=== PATIENT | female | born 1995 | race Caucasian/White ===

== ENCOUNTER 2018-01-11 08:00 | Outpatient (CLI) | payer BC | END 2018-01-11 08:01 | disposition home or self-care (01) | LOC: LAB.R 08:00 | PROVIDERS: ATTEND Obstetrics & Gynecology | DX: Z11.3 Encounter for screening for infections with a predominantly sexual mode of transmission (principal) | CPT/HCPCS: 87480; 87491; 87510; 87591; 87660 ==

== ENCOUNTER 2018-02-14 08:00 | Outpatient (CLI) | payer BC | END 2018-02-14 08:01 | disposition home or self-care (01) | LOC: LAB.R 08:00 | PROVIDERS: ATTEND Nurse Practitioner Obstetrics & Gynecology | DX: Z11.3 Encounter for screening for infections with a predominantly sexual mode of transmission (principal) | CPT/HCPCS: 87491; 87591 ==

== ENCOUNTER 2018-02-26 08:00 | Outpatient (CLI) | payer BC | END 2018-02-26 08:01 | disposition home or self-care (01) | LOC: LAB.R 08:00 | PROVIDERS: ATTEND Obstetrics & Gynecology | DX: N76.0 Acute vaginitis (principal) | CPT/HCPCS: 87480; 87491; 87510; 87591; 87660 ==

== ENCOUNTER 2018-03-05 18:47 | Outpatient (CLI) | payer BC, OTHER ==
--- NOTE | 2018-03-06 09:15 | Ultrasound Report ---
PELVIC ULTRASOUND: 03/05/2018 CLINICAL INDICATION: Lower abdominal pain. TECHNIQUE: Transabdominal pelvic ultrasound performed for global evaluation. Transvaginal pelvic ultrasound performed for detailed evaluation. Real-time scanning performed and static images obtained. FINDINGS: The uterus is anteverted, measuring 8.0 x 4.4 x 3.9 cm. The endometrium measures 5 mm. An IUD is noted in the endometrial canal. No focal myometrial lesion is appreciated. The ovaries are normal, with the right measuring 2.4 x 2.3 x 1.8 cm, and the left measuring 2.6 x 2.2 x 1.5 cm. No free fluid is present. IMPRESSION: IUD IN PLACE. NORMAL PELVIC ULTRASOUND. TD: 03/06/2018 08:33
== END 2018-03-05 18:48 | disposition home or self-care (01) ==
LOC: DI 18:47
PROVIDERS: ATTEND Obstetrics & Gynecology
DX: R10.30 Lower abdominal pain, unspecified (principal); Z97.5 Presence of (intrauterine) contraceptive device
CPT/HCPCS: 76830; 76856

== ENCOUNTER 2018-04-02 08:00 | Outpatient (CLI) | payer BC, OTHER | END 2018-04-02 23:59 | LOC: LAB.R 08:00 | PROVIDERS: ATTEND Obstetrics & Gynecology | DX: Z11.3 Encounter for screening for infections with a predominantly sexual mode of transmission (principal); N89.8 Other specified noninflammatory disorders of vagina | CPT/HCPCS: 87480; 87491; 87510; 87591; 87660 ==

== ENCOUNTER 2018-05-23 17:15 | Outpatient (CLI) | payer BC, OTHER | END 2018-05-23 23:59 | LOC: LAB.R 17:15 | PROVIDERS: ATTEND Obstetrics & Gynecology | DX: N89.8 Other specified noninflammatory disorders of vagina (principal) | CPT/HCPCS: 87480; 87510; 87660 ==

== ENCOUNTER 2018-06-11 08:00 | Outpatient (CLI) | payer BC, OTHER | END 2018-06-11 08:01 | disposition home or self-care (01) | LOC: LAB.R 08:00 | PROVIDERS: ATTEND Obstetrics & Gynecology | DX: N76.0 Acute vaginitis (principal) | CPT/HCPCS: 87480; 87510; 87660 ==

== ENCOUNTER 2018-07-17 08:00 | Outpatient (CLI) | payer BC, OTHER | END 2018-07-17 08:01 | disposition home or self-care (01) | LOC: LAB.R 08:00 | PROVIDERS: ATTEND Obstetrics & Gynecology | DX: N76.0 Acute vaginitis (principal) | CPT/HCPCS: 87480; 87510; 87660 ==

== ENCOUNTER 2019-02-04 11:53 | Emergency (ER) | payer BC, OTHER ==
[2019-02-04] MEDS ORDERED: HYDROcod/ACETAM 5/325 MG TABLET PO STA (12:38)
--- NOTE | 2019-02-04 12:41 | ED Physician Documentation ---
History of Present Illness - Stated complaint Stated Complaint: SIDE PX - Chief complaint Chief Complaint: Resp - History obtained from History obtained from: Patient, Friend - History of Present Illness Timing: Other (About a month and a half ago she was blowing her nose hard and felt a pop in the left lower lateral ribs. Ever since then she is had waxing and waning pain which at times is severe as it is now. She is not short of breath but it hurts to take a deep breath or cough or sneeze. There is no fever associated with it. She tried ibuprofen and meloxicam without relief. Flexeril offered her some relief.) Review of Systems Constitutional: reports: Reviewed and negative Cardiac: reports: Reviewed and negative Respiratory: reports: Reviewed and negative PD PAST MEDICAL HISTORY - Past Medical History Past Medical History: No - Past Surgical History Past Surgical History: No - Present Medications Home Medications: Ambulatory Orders Medication Instructions Recorded Confirmed Hydrocodone/Acetaminophen 1 - 2 each PO Q6H PRN #20 tablet 02/04/19 [Hydrocodon-Acetaminophen 5-325] - Allergies Allergies/Adverse Reactions: Allergies Allergy/AdvReac Type Severity Reaction Status Date / Time No Known Drug Allergies Allergy Verified 02/04/19 12:05 - Social History Does the pt smoke?: Yes Smoking Status: Current every day smoker Does the pt drink ETOH?: Yes Does the pt have substance abuse?: No - POLST Patient has POLST: No PD ED PE NORMAL - Vitals Vital signs reviewed: Yes - General General: Alert and oriented X 3, No acute distress - Neck Neck: Supple, no meningeal sign, No bony TTP - Cardiac Cardiac: RRR, No murmur, Other (Tender about rib 11 or 10 in the mid axillary line on the left) - Respiratory Respiratory: No respiratory distress, Clear bilaterally - Abdomen Abdomen: Non tender - Extremities Extremities: No edema, No calf tenderness / cord - Neuro Neuro: Alert and oriented X 3, Normal speech Results - Vitals Vitals: Vital Signs - 24 hr 02/04/19 12:01 Temperature 37.1 C Heart Rate 104 H Respiratory 18 Rate Blood Pressure 115/73 O2 Saturation 99 Oxygen O2 Source Room air Departure - Departure Disposition: 01 Home, Self Care Clinical Impression: Rib fracture Qualifiers: Encounter type: initial encounter Rib fracture type: single rib Fracture type: closed Laterality: right Qualified Code(s): S22.31XA - Fracture of one rib, right side, initial encounter for closed fracture Condition: Good Record reviewed to determine appropriate education?: Yes Instructions: ED Fx Rib Prescriptions: Hydrocodone/Acetaminophen [Hydrocodon-Acetaminophen 5-325] 1 - 2 each PO Q6H PRN #20 tablet PRN Reason: pain Comments: Do not drink or drive while taking narcotic pain medication. Note that many narcotic pain relievers also contain Tylenol/acetaminophen. Please ensure that your total dose of acetaminophen from all sources does not exceed 3 g (3000 mg) per day. You may get constipated while on this medication. Take a stool softener such as Colace twice a day while you are on it. Also add an nket-osc-dnxieiq laxative such as senna or MiraLAX on any day that you do not have a bowel movement. If you received a narcotic pain medication or sedative while in the emergency department, do not drive for the next 24 hours. Follow-up with your doctor in 1 week for recheck, return for new or worsening symptoms.
--- NOTE | 2019-02-04 13:51 | XRAY Report ---
Reason: rib pain left Procedure Date: 02/04/2019 Accession Number: [id number] / [id number] Procedure: XR - Ribs w/PA Chest LT CPT Code: FULL RESULT: EXAM: LEFT RIB RADIOGRAPHY EXAM DATE: 02/04/2019 01:32 PM. CLINICAL HISTORY: Rib pain left. COMPARISON: None. TECHNIQUE: 1 view of the chest and 2 views of the ribs. FINDINGS: Bones: Left seventh lateral rib fracture. Possible left 6 lateral rib fracture. Lungs: No focal opacities. No pneumothorax. No pleural effusions. Mediastinum: Heart and mediastinal contours are unremarkable. Other: None. IMPRESSION: Left seventh lateral rib fracture. Possible left 6 lateral rib fracture. RADIA
[2019-02-04 13:57] VITALS: BP 114/80
== END 2019-02-04 13:58 | disposition home or self-care (01) ==
LOC: ED 11:53
DX: S22.31XA Fracture of one rib, right side, initial encounter for closed fracture (principal); X50.1XXA Overexertion from prolonged static or awkward postures, initial encounter; F17.200 Nicotine dependence, unspecified, uncomplicated
CPT/HCPCS: 71101; 99283; A9270

== ENCOUNTER 2019-04-30 19:46 | Emergency (ER) | payer OTHER ==
[2019-04-30 20:21] LABS: BILIRUBIN,URINE NEGATIVE (NEGATIVE); GLUCOSE, URINE (UA) NEGATIVE (NEGATIVE); KETONES,URINE (UA) NEGATIVE (NEGATIVE); LEUKOCYTE ESTERASE, URINE NEGATIVE (NEGATIVE); NITRITE,URINE NEGATIVE (NEGATIVE); OCCULT BLOOD,URINE SMALL (NEGATIVE); PH,URINE 5.5 PH (5.0-7.5); PROTEIN,URINE NEGATIVE (NEGATIVE); UROBILINOGEN,URINE 0.2 (NORMAL) E.U./dL (NORMAL)
[2019-04-30 20:24] LABS: CLARITY,URINE CLEAR (CLEAR); HCG UR QUAL NEGATIVE
[2019-04-30 20:32] LABS: BASOPHILS # (AUTO) 0.1 10^3/uL (0.0-0.1); BASOPHILS % (AUTO) 1.1 %; EOSINOPHILS # (AUTO) 0.5 10^3/uL (0.0-0.7); EOSINOPHILS % (AUTO) 7.4 %; HGB - HEMOGLOBIN 13.1 g/dL (12.0-16.0); LYMPHOCYTES % (AUTO) 42.7 %; MEAN CORPUSCULAR HEMOGLOBIN 31.7 pg (27.0-31.0); MEAN CORPUSCULAR VOLUME 93.2 fL (81.0-99.0); MEAN PLATELET VOLUME 8.6 fL (7.9-10.8); MONOCYTES # (AUTO) 0.4 10^3/uL (0.0-1.0); MONOCYTES % (AUTO) 5.9 %; NEUTROPHILS % (AUTO) 42.5 %; PLT - PLATELET COUNT 317 10^3/uL (130-450); RED BLOOD COUNT 4.13 10^6/uL (4.20-5.40); RED CELL DISTRIBUTION WIDTH 11.8 % (12.0-15.0); WHITE BLOOD COUNT 7.1 x10^3/uL (4.8-10.8)
[2019-04-30 20:39] LABS: BACTERIA,URINE Few /HPF (None Seen); SQUAMOUS EPITHELIAL CELL,UR FEW Squamous (<= Few)
[2019-04-30 20:46] LABS: ALBUMIN/GLOBULIN RATIO 1.3 (1.0-2.2); BILIRUBIN,TOTAL 0.3 mg/dL (0.2-1.0); CALCIUM 8.8 mg/dL (8.5-10.3); CREATININE 0.6 mg/dL (0.4-1.0); TOTAL PROTEIN 7.1 g/dL (6.7-8.2)
--- NOTE | 2019-04-30 20:52 | ED Physician Documentation ---
PD HPI FEMALE - Stated complaint Stated Complaint: FEMALE /BLEED/POSS PREG/VOM - Chief complaint Chief Complaint: Abd Pain - History obtained from History obtained from: Patient - History of Present Illness Timing - onset: How many weeks ago (1) Timing - duration: Weeks (1) Timing - details: Gradual onset Pain level max: 8 Pain level max: 6 Associated symptoms: Abdominal pain, Pelvic pain Contributing factors: control, Oral contraceptive. No: , Exposed to STD Similar symptoms before: Has not had sx before Recently seen: Not recently seen - Additional information Additional information: states has been taking her control pills continuously for several months. no placebo weeks. Patient is having vaginal bleeding as well as severe cramping. Review of Systems Ten Systems: 10 systems reviewed and negative Constitutional: denies: Fever, Chills Nose: denies: Rhinorrhea / runny nose, Congestion Throat: denies: Sore throat Cardiac: denies: Chest pain / pressure Respiratory: denies: Cough GI: denies: Vomiting, Diarrhea, Hematemesis, Bloody / black stool : denies: Dysuria, Frequency, Hesitancy, Now EGA Skin: denies: Rash Musculoskeletal: denies: Neck pain, Back pain Neurologic: denies: Headache PD PAST MEDICAL HISTORY - Past Medical History Past Medical History: No - Past Surgical History Past Surgical History: No - Present Medications Home Medications: Ambulatory Orders Medication Instructions Recorded Confirmed Oxycodone HCl/Acetaminophen 1 - 2 each PO Q6H PRN #14 tablet 04/30/19 [Percocet 5-325 mg Tablet] - Allergies Allergies/Adverse Reactions: Allergies Allergy/AdvReac Type Severity Reaction Status Date / Time No Known Drug Allergies Allergy Verified 04/30/19 20:04 - Social History Does the pt smoke?: Yes Smoking Status: Current every day smoker Does the pt drink ETOH?: Yes Does the pt have substance abuse?: No - POLST Patient has POLST: No PD ED PE NORMAL - Vitals Vital signs reviewed: Yes - General General: Alert and oriented X 3, No acute distress, Well developed/nourished - HEENT HEENT: PERRL, Moist mucous membranes - Neck Neck: Supple, no meningeal sign - Cardiac Cardiac: RRR, Strong equal pulses - Respiratory Respiratory: No respiratory distress, Clear bilaterally - Abdomen Abdomen: Soft, Non distended, Other (Tender to palpation suprapubic without peritoneal signs) - Female Female : Other (Normal pelvic exam other than a small amount of dark blood from the cervical os.) - Back Back: No CVA TTP, No spinal TTP - Derm Derm: Warm and dry - Extremities Extremities: No edema, No calf tenderness / cord - Neuro Neuro: Alert and oriented X 3, dropper tank storage 2-12 intact, No motor deficit, No sensory deficit, Normal speech - Psych Psych: Normal mood, Normal affect Results - Vitals Vitals: Vital Signs - 24 hr 04/30/19 04/30/19 04/30/19 19:56 20:04 21:50 Temperature 36.7 C 36.7 C 36.6 C Heart Rate 85 85 88 Respiratory 16 16 16 Rate Blood Pressure 120/87 H 120/87 H 120/71 O2 Saturation 99 99 99 Oxygen O2 Source Room air - Labs Labs: Microbiology 04/30/19 21:00 Wet Prep - Final Vaginal Laboratory Tests 04/30/19 04/30/19 04/30/19 20:12 20:12 20:25 WBC 7.1 RBC 4.13 L Hgb 13.1 Hct 38.5 MCV 93.2 MCH 31.7 H MCHC 34.0 RDW 11.8 L Plt Count 317 MPV 8.6 Neut # (Auto) 3.0 Lymph # (Auto) 3.0 [place] # (Auto) 0.4 Eos # (Auto) 0.5 Baso # (Auto) 0.1 Absolute Nucleated RBC 0.00 Nucleated RBC % 0.0 Sodium Potassium Chloride Carbon Dioxide Anion Gap BUN Creatinine Estimated GFR (MDRD) Glucose Calcium Total Bilirubin AST ALT Alkaline Phosphatase Total Protein Albumin Globulin Albumin/Globulin Ratio Lipase Urine Color YELLOW Urine Clarity CLEAR Urine pH 5.5 Ur Specific [place] 1.025 1.025 Urine Protein NEGATIVE Urine Glucose (UA) NEGATIVE Urine Ketones NEGATIVE Urine Occult Blood SMALL H Urine Nitrite NEGATIVE Urine Bilirubin NEGATIVE Urine Urobilinogen 0.2 (NORMAL) Ur Leukocyte Esterase NEGATIVE Urine RBC 6-10 H Urine WBC 6-10 H Ur Squamous Epith Cells FEW Squamous Urine Bacteria Few Ur Microscopic Review INDICATED Urine Culture Comments INDICATED Urine HCG, Qual NEGATIVE 04/30/19 20:25 WBC RBC Hgb Hct MCV MCH MCHC RDW Plt Count MPV Neut # (Auto) Lymph # (Auto) [place] # (Auto) Eos # (Auto) Baso # (Auto) Absolute Nucleated RBC Nucleated RBC % Sodium 137 Potassium 3.7 Chloride 102 Carbon Dioxide 24 Anion Gap 11.0 BUN 13 Creatinine 0.6 Estimated GFR (MDRD) 122 Glucose 108 H Calcium 8.8 Total Bilirubin 0.3 AST 19 ALT 15 Alkaline Phosphatase 44 Total Protein 7.1 Albumin 4.0 Globulin 3.1 Albumin/Globulin Ratio 1.3 Lipase 48 Urine Color Urine Clarity Urine pH Ur Specific [place] Urine Protein Urine Glucose (UA) Urine Ketones Urine Occult Blood Urine Nitrite Urine Bilirubin Urine Urobilinogen Ur Leukocyte Esterase Urine RBC Urine WBC Ur Squamous Epith Cells Urine Bacteria Ur Microscopic Review Urine Culture Comments Urine HCG, Qual PD MEDICAL DECISION MAKING - ED course Complexity details: reviewed results, re-evaluated patient, considered differential, d/w patient ED course: 23-year-old female with dysmenorrhea. No acute laboratory findings. Had a normal pelvic ultrasound last year. No fibroids. Likely that this is related to her continuous control use, when the pills she is taking is not designed for such use. Will prescribe pain medication for home and follow-up with her doctor. Patient counseled regarding signs and symptoms for which I believe and urgent re-evaluation would be necessary. Patient with good understanding of and agreement to plan and is comfortable going home at this time This document was made in part using voice recognition software. While efforts are made to proofread this document, sound alike and grammatical errors may occur. Departure - Departure Disposition: 01 Home, Self Care Clinical Impression: Dysmenorrhea Condition: Good Instructions: ED Cramping Menstrual, ED Pelvic Pain UKO Follow-Up: your,doctor in 3 days [Other] Prescriptions: Oxycodone HCl/Acetaminophen [Percocet 5-325 mg Tablet] 1 - 2 each PO Q6H PRN #14 tablet PRN Reason: pain Comments: Follow up with your doctor for further care. return if you worsen. you should take the placebo Do not drink alcohol or drive while on narcotic pain medicine. Note that many narcotic pain relievers also contain tylenol/acetaminophen. Please ensure that your total dose of acetaminophen from all sources does not exceed 3 grams (3000mg) per day. You may constipated on this medication, take a stool softener such as "Colace" twice a day while you are on it. Also recommend a pijp-apr-hgesnua laxative such as senna or MiraLAX any day that you do not have a bowel movement. If you received narcotic pain medication in the emergency department, do not drive or operate machinery for the next 24 hours. Forms: Activity restrictions Discharge Date/Time: 04/30/19 22:09
[2019-04-30] MEDS ORDERED: oxyCODONE 5 MG TABLET PO STA (20:53)
[2019-04-30] MEDS ORDERED: HYDROmorphone 2 MG TABLET PO STA (21:36)
[2019-04-30 21:50] VITALS: BP 120/71
== END 2019-04-30 22:09 | disposition home or self-care (01) ==
LOC: ED 19:46
DX: N94.6 Dysmenorrhea, unspecified (principal); F17.200 Nicotine dependence, unspecified, uncomplicated
CPT/HCPCS: 36415; 80053; 81001; 81025; 83690; 85025; 87086; 87210; 99282; 99284; A9270; 81003

== ENCOUNTER 2019-05-02 17:45 | Emergency (ER) | payer OTHER ==
[2019-05-02 18:20] LABS: BILIRUBIN,URINE NEGATIVE (NEGATIVE); GLUCOSE, URINE (UA) NEGATIVE (NEGATIVE); KETONES,URINE (UA) NEGATIVE (NEGATIVE); LEUKOCYTE ESTERASE, URINE NEGATIVE (NEGATIVE); NITRITE,URINE NEGATIVE (NEGATIVE); OCCULT BLOOD,URINE TRACE-INTA (NEGATIVE); PROTEIN,URINE NEGATIVE (NEGATIVE); UROBILINOGEN,URINE 0.2 (NORMAL) E.U./dL (NORMAL)
[2019-05-02 18:22] LABS: CLARITY,URINE CLEAR (CLEAR); HCG UR QUAL NEGATIVE
[2019-05-02 18:58] LABS: BASOPHILS # (AUTO) 0.1 10^3/uL (0.0-0.1); BASOPHILS % (AUTO) 0.6 %; EOSINOPHILS # (AUTO) 0.5 10^3/uL (0.0-0.7); EOSINOPHILS % (AUTO) 5.5 %; HGB - HEMOGLOBIN 14.4 g/dL (12.0-16.0); LYMPHOCYTES # (AUTO) 2.9 10^3/uL (1.5-3.5); LYMPHOCYTES % (AUTO) 33.7 %; MEAN CORPUSCULAR HEMOGLOBIN 31.4 pg (27.0-31.0); MEAN CORPUSCULAR HGB CONC 33.1 g/dL (32.0-36.0); MEAN CORPUSCULAR VOLUME 94.8 fL (81.0-99.0); MEAN PLATELET VOLUME 8.7 fL (7.9-10.8); MONOCYTES # (AUTO) 0.4 10^3/uL (0.0-1.0); MONOCYTES % (AUTO) 4.4 %; NEUTROPHILS # (AUTO) 4.8 10^3/uL (1.5-6.6); NEUTROPHILS % (AUTO) 55.5 %; PLT - PLATELET COUNT 338 10^3/uL (130-450); RED BLOOD COUNT 4.59 10^6/uL (4.20-5.40); RED CELL DISTRIBUTION WIDTH 11.7 % (12.0-15.0); WHITE BLOOD COUNT 8.7 x10^3/uL (4.8-10.8)
[2019-05-02 19:11] LABS: ALBUMIN 4.2 g/dL (3.2-5.5); ALBUMIN/GLOBULIN RATIO 1.2 (1.0-2.2); BILIRUBIN,TOTAL 0.6 mg/dL (0.2-1.0); CALCIUM 9.5 mg/dL (8.5-10.3); CREATININE 0.7 mg/dL (0.4-1.0); TOTAL PROTEIN 7.7 g/dL (6.7-8.2)
[2019-05-02] MEDS ORDERED: HYDROmorphone 1 MG/ML CARPUJECT IVP STA ×3 (19:31→23:01)
[2019-05-02] MEDS ORDERED: IOVERSOL 320 100 ML VIAL IVP ONE ×2 (19:34→19:43)
--- NOTE | 2019-05-02 20:14 | CT Report ---
Reason: RLQ abd pain Procedure Date: 05/02/2019 Accession Number: [id number] / [id number] Procedure: CT - Abdomen/Pelvis W CPT Code: FULL RESULT: EXAM: CT ABDOMEN AND PELVIS EXAM DATE: 05/02/2019 07:42 PM. CLINICAL HISTORY: RLQ abd pain. COMPARISONS: None. TECHNIQUE: Routine helical CT imaging was performed through the abdomen and pelvis. IV contrast: OPTI 320 90ML. Enteric contrast: No. Reconstructions: Coronal and sagittal. In accordance with CT protocol optimization, one or more of the following dose reduction techniques were utilized for this exam: automated exposure control, adjustment of mA and/or KV based on patient size, or use of iterative reconstructive technique. FINDINGS: Lung Bases: Unremarkable. Liver: Normal. Gallbladder/Bile Ducts: Unremarkable. Spleen: Normal. Pancreas: Normal. Adrenal Glands: Normal. Kidneys: Normal. No hydronephrosis. No visualized stone. Peritoneal Cavity/Bowel: Limited evaluation without enteric contrast due to lack of intra-abdominal fat. The cecum extends into the pelvis. The appendix is not identified. No pericecal inflammation visualized. Trace free fluid. No abscess free air or adenopathy. No evidence of a bowel obstruction. Pelvic Organs: The bladder, uterus and adnexa are unremarkable. Vasculature: Unremarkable. Bones: Old left seventh rib fracture. Other: None. IMPRESSION: The appendix is not identified. No definite evidence of acute appendicitis. Trace free fluid. RADIA
--- NOTE | 2019-05-02 20:42 | ED Physician Documentation ---
PD HPI ABD PAIN - Stated complaint Stated Complaint: RLQ ABD PX/VOM - Chief complaint Chief Complaint: Abd Pain - History obtained from History obtained from: Patient - History of Present Illness Timing - onset: How many weeks ago (1) Timing - duration: Weeks (1) Timing - details: Gradual onset Pain level max: 8 Pain level now: 8 Quality: Aching, Pain Location: RLQ, Suprapubic Radiation: No: Chest, , Lower back, Left flank, Left shoulder, Other, Right flank, Right shoulder, Upper back Improved by: No: Eating, Laying still, Vomiting, BM, Position, Meds Worsened by: Moving, Palpation. No: Eating, Breathing, Position Associated symptoms: Nausea, Vomiting, Constipation. No: Fever, Diarrhea, Melena, Hematochezia, Dysuria, Hematuria, Chest pain, Dizzy Recently seen: Emergency Dept (2 days ago for same.) - Additional information Additional information: Pain has now moved to the right lower quadrant. Worse with movement and palpation. Review of Systems Constitutional: denies: Fever, Chills Throat: denies: Sore throat Cardiac: denies: Chest pain / pressure Respiratory: denies: Cough GI: reports: Abdominal Pain, Nausea, Vomiting. denies: Diarrhea : denies: Incontinent, Hematuria Skin: denies: Rash Musculoskeletal: denies: Neck pain PD PAST MEDICAL HISTORY - Past Medical History Past Medical History: No - Past Surgical History Past Surgical History: No - Present Medications Home Medications: Ambulatory Orders Medication Instructions Recorded Confirmed Oxycodone HCl/Acetaminophen 1 - 2 each PO Q6H PRN #14 tablet 04/30/19 05/02/19 [Percocet 5-325 mg Tablet] Ibuprofen [Motrin] 800 mg PO Q8H PRN #30 tablet 05/02/19 Ondansetron Odt [Zofran] 4 mg TL Q6H PRN #10 tablet 05/02/19 Oxycodone HCl/Acetaminophen 1 - 2 each PO Q6H PRN #14 tablet 05/02/19 [Percocet 5-325 mg Tablet] - Allergies Allergies/Adverse Reactions: Allergies Allergy/AdvReac Type Severity Reaction Status Date / Time No Known Drug Allergies Allergy Verified 05/02/19 18:00 - Social History Does the pt smoke?: Yes Smoking Status: Current every day smoker Does the pt drink ETOH?: Yes Does the pt have substance abuse?: No - Immunizations Immunizations are current?: Yes - POLST Patient has POLST: No PD ED PE NORMAL - Vitals Vital signs reviewed: Yes - General General: Alert and oriented X 3, No acute distress - HEENT HEENT: Moist mucous membranes - Neck Neck: Supple, no meningeal sign - Cardiac Cardiac: RRR, Strong equal pulses - Respiratory Respiratory: No respiratory distress, Clear bilaterally - Abdomen Abdomen: Soft, Other (Tender palpation right lower quadrant. Positive heeltap. Negative obturator. Negative psoas) - Back Back: No CVA TTP, No spinal TTP - Derm Derm: Warm and dry, No rash - Extremities Extremities: No edema - Neuro Neuro: Alert and oriented X 3 - Psych Psych: Normal mood, Normal affect Results - Vitals Vitals: Vital Signs - 24 hr 05/02/19 05/02/19 05/02/19 17:57 19:35 21:05 Temperature 36.4 C L Heart Rate 75 72 75 Respiratory 19 16 14 Rate Blood Pressure 109/59 L 118/93 H 106/65 O2 Saturation 100 100 100 05/02/19 23:15 Temperature Heart Rate 70 Respiratory 18 Rate Blood Pressure 97/77 O2 Saturation 97 Oxygen O2 Source Room air - Labs Labs: Laboratory Tests 05/02/19 05/02/19 05/02/19 18:14 18:52 18:52 WBC 8.7 RBC 4.59 Hgb 14.4 Hct 43.5 MCV 94.8 MCH 31.4 H MCHC 33.1 RDW 11.7 L Plt Count 338 MPV 8.7 Neut # (Auto) 4.8 Lymph # (Auto) 2.9 [place] # (Auto) 0.4 Eos # (Auto) 0.5 Baso # (Auto) 0.1 Absolute Nucleated RBC 0.00 Nucleated RBC % 0.0 Sodium 139 Potassium 3.8 Chloride 99 L Carbon Dioxide 25 Anion Gap 15.0 H BUN 14 Creatinine 0.7 Estimated GFR (MDRD) 102 Glucose 93 Calcium 9.5 Total Bilirubin 0.6 AST 18 ALT 15 Alkaline Phosphatase 44 Total Protein 7.7 Albumin 4.2 Globulin 3.5 Albumin/Globulin Ratio 1.2 Lipase 29 Urine Color YELLOW Urine Clarity CLEAR Urine pH 6.0 Ur Specific [place] 1.020 Urine Protein NEGATIVE Urine Glucose (UA) NEGATIVE Urine Ketones NEGATIVE Urine Occult Blood TRACE-INTA Urine Nitrite NEGATIVE Urine Bilirubin NEGATIVE Urine Urobilinogen 0.2 (NORMAL) Ur Leukocyte Esterase NEGATIVE Ur Microscopic Review NOT INDICATED Urine Culture Comments NOT INDICATED Urine HCG, Qual NEGATIVE - Rads (name of study) CT abdomen pelvis Radiology: Prelim report reviewed, EMP read contemporaneously, See rad report (The appendix is not identified. No definite evidence of acute appendicitis. Trace free fluid. ) PD MEDICAL DECISION MAKING - ED course Complexity details: reviewed results, re-evaluated patient, considered differential, d/w patient, d/w family ED course: 23-year-old female presents to the emergency department with right lower quadrant pain. The appendix is not identified on CT. There is no definite evidence of acute appendicitis. There is trace free fluid. Consulted Dr. Ordoñez, general surgery who does not feel that this is appendicitis. He came and evaluated the patient. Patient feels better after pain meds, IV fluids and Zofran. Tolerating p.o. without difficulty. Will prescribe pain medication for home and follow-up with her doctor for repeat evaluation. Patient counseled regarding signs and symptoms for which I believe and urgent re-evaluation would be necessary. Patient with good understanding of and agreement to plan and is comfortable going home at this time This document was made in part using voice recognition software. While efforts are made to proofread this document, sound alike and grammatical errors may occur. Departure - Departure Disposition: 01 Home, Self Care Clinical Impression: Abdominal pain Qualifiers: Abdominal location: unspecified location Qualified Code(s): R10.9 - Unspecified abdominal pain Condition: Good Instructions: ED Abdominal Pain Unkn Cause Follow-Up: your,doctor in 3 days [Other] Prescriptions: Ibuprofen [Motrin] 800 mg PO Q8H PRN #30 tablet PRN Reason: PAIN &/OR FEVER Ondansetron Odt [Zofran] 4 mg TL Q6H PRN #10 tablet PRN Reason: Nausea / Vomiting Oxycodone HCl/Acetaminophen [Percocet 5-325 mg Tablet] 1 - 2 each PO Q6H PRN #14 tablet PRN Reason: pain Comments: The cause of your symptoms is unclear tonight. This may be related to a ruptured ovarian cyst. Follow-up with your doctor for further evaluation and care. Return if you worsen. Do not drink alcohol or drive while on narcotic pain medicine. Note that many narcotic pain relievers also contain tylenol/acetaminophen. Please ensure that your total dose of acetaminophen from all sources does not exceed 3 grams (3000mg) per day. You may constipated on this medication, take a stool softener such as "Colace" twice a day while you are on it. Also recommend a wior-fwx-srjbtkt laxative such as senna or MiraLAX any day that you do not have a bowel movement. If you received narcotic pain medication in the emergency department, do not drive or operate machinery for the next 24 hours.
[2019-05-02] MEDS ORDERED: SODIUM CHLORIDE 0.9% 2,000 ML IV ONE (23:00)
[2019-05-02] MEDS ORDERED: KETOROLAC 30 MG/ML VIAL IVP STA (23:01)
[2019-05-03] MEDS ORDERED: HYDROmorphone 2 MG TABLET PO STA (00:01)
--- NOTE | 2019-05-03 00:52 | CONSULTATION NOTE ---
Referring Provider Name of Referring Provider:: Dr. Benigno Velasco Consult Date: 05/02/19 Chief Complaint - Chief Complaint Chief Complaint: Abdominal pain History of Present Illness - Admitted From Admitted From:: Not admitted-seen in ED. - History Obtained From Records Reviewed: Yes. History obtained from: Primarily the patient, some from the chart, some from Dr. Brewer. Exam Limitations: None. - History of Present Illness HPI Comment/Other: The patient is a very pleasant 23-year-old female who was evaluated in room 7 at [facility]'s emergency department at the request of Dr. Brewer. The patient states that she had the gradual onset of abdominal pain starting approximately 1 week ago. She was seen in the emergency department 2 days ago for pelvic bleeding. She states that she does take control pills most of the time but she skips and misses doses which has resulted in her having her period. She states that for the past 3 days she has had some nausea and vomiting with this abdominal pain to the point where she cannot tolerate any food. She has been able to drink small amounts of water but recently even this is been problematic. She denies hematemesis, melena, or hematochezia. The pain is described as sharp and crampy"much like a period." She denies any constipation or diarrhea. She denies any unexpected or unwarranted weight loss. 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 : reports: None HEENT: reports: None Psych: reports: None Musculoskeletal: reports: None Derm: reports: None MRSA Hx?: No Other Past Medical History: Dysmenorrhea - Past Surgical History General: denies: Cholecystectomy, Appendectomy - POLST Patient has POLST: No Meds/Allgy - Home Medications Home Medications: Ambulatory Orders Medication Instructions Recorded Confirmed Oxycodone HCl/Acetaminophen 1 - 2 each PO Q6H PRN #14 tablet 04/30/19 05/02/19 [Percocet 5-325 mg Tablet] Ibuprofen [Motrin] 800 mg PO Q8H PRN #30 tablet 05/02/19 Ondansetron Odt [Zofran] 4 mg TL Q6H PRN #10 tablet 05/02/19 Oxycodone HCl/Acetaminophen 1 - 2 each PO Q6H PRN #14 tablet 05/02/19 [Percocet 5-325 mg Tablet] - Allergies Allergies/Adverse Reactions: Allergies Allergy/AdvReac Type Severity Reaction Status Date / Time No Known Drug Allergies Allergy Verified 05/02/19 18:00 Review of Systems - Constitutional Constitutional: reports: Malaise. denies: Weakness, Weight loss - Eyes Eyes: denies: Pain - Ears, Nose & Throat Ears, Nose & Throat: denies: Ear pain - Cardiovascular Cariovascular: denies: Irregular heart rate, Palpitations, Chest pain - Respiratory Respiratory: denies: Cough, Sputum production, Wheezing - Gastrointestinal Gastrointestinal: reports: Abdominal pain, Nausea, Vomiting. denies: Abdominal distention, Rectal bleeding, Black stools, Bloody stools Exam - Vital Signs Reviewed Vital Signs: Yes Vital Signs: Vital Signs x48h Temp Pulse Resp BP Pulse Ox 05/02/19 23:15 70 18 97/77 97 05/02/19 21:05 75 14 106/65 100 05/02/19 19:35 72 16 118/93 H 100 05/02/19 17:57 36.4 C L 75 19 109/59 L 100 - Physical Exam General Appearance: positive: No acute distress Eyes Bilateral: positive: No lid inflammation, Conjunctivae nml, No scleral icterus ENT: positive: Dry mucous membranes Neck: positive: Trachea midline Respiratory: positive: Chest non-tender Cardiovascular: positive: Regular rate & rhythm Abdomen: positive: Nml bowel sounds, No distention, Tenderness (Primary located in the left lower quadrant and the patient states that this is different than before.). negative: Guarding, Rebound Skin: positive: Color nml Extremities: positive: Non-tender, Nml appearance Neurologic/Psychiatric: positive: Oriented x3, CN's nml (2-12), Motor nml, Sensation nml, Mood/affect nml Conclusion/Plan - Diagnosis Diagnosis: Abdominal pain likely secondary to ruptured ovarian cyst - Plan Plan: The patient's signs, symptoms, radiographic studies, labs all speak against appendicitis as a cause of her pain. Instead, with her taking her control pills in a somewhat regimented manner and a history of vaginal bleeding 2 days prior along with a small amount of free fluid this is more likely to be a ruptu red ovarian cyst. With regards to treatment recommend that we fully hydrate her with plenty of IV fluids, treat her pain, feed her as she is hungry and see how she does. I expect that she will improve and will be able to be discharged home with a follow-up with her primary care physician. I explained to her that this may take several weeks before she starts feeling normal. I asked her to contact us if she has any further surgical questions and or concerns and she stated that she would. 45 minutes of [id number] time spent with the patient, the majority of which was spent in discussion, coordination of care, and completion of the requisite paperwork Horacio disclaimer: This document was created in part using voice recognition technology. Because of the inherent limitations of the system ([employer]'s [employer] user manual states that the licensee understands that speech recognition is a statistical process and that recognition errors are inherent in the process), occasional esme e sounding word substitutions and grammatical errors do occur and persist despite proofreading. Please read this document for context. - Lab Results Fish Bones: 05/02/19 18:52 05/02/19 18:52 - Diagnostic Imaging Results Diagnostic Imaging Results: positive: Final report reviewed, Read independently
[2019-05-03 01:05] VITALS: BP 117/60
== END 2019-05-03 01:04 | disposition home or self-care (01) ==
LOC: ED 17:45
DX: R10.31 Right lower quadrant pain (principal); F17.200 Nicotine dependence, unspecified, uncomplicated
CPT/HCPCS: 36415; 74177; 80053; 81003; 81025; 83690; 85025; 96374; 96376; 99283; 99284; A9270; J1170; Q9967; 81001; 87086

== ENCOUNTER 2019-05-03 19:01 | Emergency (ER) | payer OTHER ==
[2019-05-03] MEDS ORDERED: SODIUM CHLORIDE 0.9% 1,000 ML IV STA (19:12)
[2019-05-03] MEDS ORDERED: HYDROmorphone 1 MG/ML CARPUJECT IVP STA ×2 (19:12→21:14)
[2019-05-03] MEDS ORDERED: ONDANSETRON 4 MG/2 ML VIAL IVP STA (19:12)
[2019-05-03 19:29] LABS: BILIRUBIN,URINE NEGATIVE (NEGATIVE); GLUCOSE, URINE (UA) NEGATIVE (NEGATIVE); KETONES,URINE (UA) NEGATIVE (NEGATIVE); LEUKOCYTE ESTERASE, URINE NEGATIVE (NEGATIVE); NITRITE,URINE NEGATIVE (NEGATIVE); OCCULT BLOOD,URINE SMALL (NEGATIVE); PROTEIN,URINE NEGATIVE (NEGATIVE); UROBILINOGEN,URINE 0.2 (NORMAL) E.U./dL (NORMAL)
[2019-05-03 19:31] LABS: BASOPHILS # (AUTO) 0.1 10^3/uL (0.0-0.1); EOSINOPHILS # (AUTO) 0.6 10^3/uL (0.0-0.7); EOSINOPHILS % (AUTO) 8.6 %; HGB - HEMOGLOBIN 14.1 g/dL (12.0-16.0); LYMPHOCYTES # (AUTO) 3.7 10^3/uL (1.5-3.5); MEAN CORPUSCULAR HEMOGLOBIN 30.9 pg (27.0-31.0); MEAN CORPUSCULAR HGB CONC 32.2 g/dL (32.0-36.0); MEAN CORPUSCULAR VOLUME 95.8 fL (81.0-99.0); MEAN PLATELET VOLUME 8.8 fL (7.9-10.8); MONOCYTES # (AUTO) 0.3 10^3/uL (0.0-1.0); MONOCYTES % (AUTO) 4.8 %; NEUTROPHILS # (AUTO) 2.2 10^3/uL (1.5-6.6); NEUTROPHILS % (AUTO) 32.3 %; PLT - PLATELET COUNT 320 10^3/uL (130-450); RED BLOOD COUNT 4.57 10^6/uL (4.20-5.40); RED CELL DISTRIBUTION WIDTH 11.8 % (12.0-15.0); WHITE BLOOD COUNT 6.9 x10^3/uL (4.8-10.8)
[2019-05-03 19:34] LABS: CLARITY,URINE HAZY (CLEAR)
[2019-05-03 19:42] LABS: ALBUMIN 4.1 g/dL (3.2-5.5); ALBUMIN/GLOBULIN RATIO 1.3 (1.0-2.2); BILIRUBIN,TOTAL 0.5 mg/dL (0.2-1.0); CALCIUM 9.4 mg/dL (8.5-10.3); CREATININE 0.6 mg/dL (0.4-1.0); TOTAL PROTEIN 7.3 g/dL (6.7-8.2)
[2019-05-03 20:20] LABS: SQUAMOUS EPITHELIAL CELL,UR NONE SEEN (<= Few)
[2019-05-03 20:21] LABS: BACTERIA,URINE None Seen /HPF (None Seen)
[2019-05-03] MEDS ORDERED: PROMETHAZINE INJ 25 MG in SODIUM CHLORIDE 0.9% 50 ML IV STA (21:14)
--- NOTE | 2019-05-03 21:16 | Ultrasound Report ---
Reason: pelvic pain, R Procedure Date: 05/03/2019 Accession Number: [id number] / [id number] Procedure: US - Pelvic w/Transvag+Doppler Comp CPT Code: FULL RESULT: EXAM: PELVIC ULTRASOUND WITH DOPPLERS CLINICAL HISTORY: Pelvic pain, R. COMPARISON: None. TECHNIQUE: Realtime transabdominal imaging performed to identify the uterus and adnexa and as an overview of other pelvic structures, followed by transvaginal imaging for better assessment of the endometrium and adnexa, with static image documentation. Color flow imaging and Doppler spectral analysis was performed to evaluate blood flow to the ovaries given pelvic pain and clinical concern for ovarian torsion. FINDINGS: Uterus: 8.8 x 3.8 x 5.5 cm, volume 99.7 cc. Anteverted position. Normal overall size and echotexture. Masses: None. Endometrium: 2.5 mm. Normal. Cervix: Small echogenic foci, possibly bubbles of air are calcifications. Otherwise unremarkable. Right Ovary: 3.9 x 1.6 x 2.6 cm, volume 8.4 cc. Multiple small follicles. Several small echogenic foci, probably calcifications. Mildly hypervascular. PSV 10.8 cm/sec. RI 0.60. Adnexa unremarkable.. Left Ovary: 3.5 x 2.1 x 2.9 cm, volume 10.8 cc. Numerous small follicles. Otherwise unremarkable. Arterial and venous blood flow are present. PSV 16.8 cm/sec. RI 0.60. Adnexa unremarkable.. Free Fluid: None. Other: None. IMPRESSION: 1. Mildly hypervascular right ovary with possible tiny calcifications; inflammatory disease is a differential consideration. 2. Arterial and venous blood flow are present to the ovaries bilaterally. 3. Tiny bubbles of air versus calcifications in the cervix. RADIA
[2019-05-03] MEDS ORDERED: AZITHROMYCIN 250 MG TABLET PO STA (21:31)
[2019-05-03] MEDS ORDERED: cefTRIAXone 1 GM VIAL IVP STA (21:31)
[2019-05-03 21:45] VITALS: BP 97/71
--- NOTE | 2019-05-03 21:59 | ED Physician Documentation ---
PD HPI ABD PAIN - Stated complaint Stated Complaint: ABD PX - Chief complaint Chief Complaint: Abd Pain - History obtained from History obtained from: Patient - History of Present Illness Timing - onset: How many days ago (several) Timing - duration: Days Timing - details: Gradual onset, Waxing and waning Pain level max: 10 Pain level now: 10 Quality: Aching, Pain Location: RLQ Radiation: No: Chest, , Lower back, Left flank, Left shoulder, Right flank, Right shoulder, Upper back Improved by: Laying still Worsened by: Moving, Palpation Associated symptoms: Nausea. No: Fever, Vomiting, Hematemesis, Diarrhea, Constipation Recently seen: Not recently seen Review of Systems Constitutional: denies: Fever, Chills GI: reports: Nausea. 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 : None HEENT: None Psych: None Musculoskeletal: None Derm: None - Past Surgical History Past Surgical History: No - Present Medications Home Medications: Ambulatory Orders Medication Instructions Recorded Confirmed Oxycodone HCl/Acetaminophen 1 - 2 each PO Q6H PRN #14 tablet 04/30/19 05/02/19 [Percocet 5-325 mg Tablet] Ibuprofen [Motrin] 800 mg PO Q8H PRN #30 tablet 05/02/19 Ondansetron Odt [Zofran] 4 mg TL Q6H PRN #10 tablet 05/02/19 Oxycodone HCl/Acetaminophen 1 - 2 each PO Q6H PRN #14 tablet 05/02/19 [Percocet 5-325 mg Tablet] HYDROmorphone [Dilaudid] 2 mg PO Q4H PRN #14 tablet 05/03/19 - Allergies Allergies/Adverse Reactions: Allergies Allergy/AdvReac Type Severity Reaction Status Date / Time No Known Drug Allergies Allergy Verified 05/03/19 19:08 - Social History Does the pt smoke?: Yes Smoking Status: Current every day smoker Does the pt drink ETOH?: Yes Does the pt have substance abuse?: No - Immunizations Immunizations are current?: Yes - POLST Patient has POLST: No PD ED PE NORMAL - Vitals Vital signs reviewed: Yes - General General: Alert and oriented X 3, No acute distress, Well developed/nourished - HEENT HEENT: PERRL, Moist mucous membranes - Neck Neck: Supple, no meningeal sign - Cardiac Cardiac: RRR, Strong equal pulses - Respiratory Respiratory: No respiratory distress, Clear bilaterally - Abdomen Abdomen: Soft, Non distended, Other (Tender palpation right lower quadrant. No peritoneal signs.) - Female Female : Other (Slight dark blood from the cervical os. Right adnexal te nderness but no mass. Otherwise normal exam) - Back Back: No CVA TTP, No spinal TTP - Derm Derm: Warm and dry, No rash - Extremities Extremities: No edema - Neuro Neuro: Alert and oriented X 3 - Psych Psych: Normal mood, Normal affect Results - Vitals Vitals: Vital Signs - 24 hr 05/03/19 05/03/19 19:05 21:44 Temperature 36.5 C 37.0 C Heart Rate 80 71 Respiratory 18 15 Rate Blood Pressure 96/55 L 97/71 O2 Saturation 100 98 Oxygen O2 Source Room air - Labs Labs: Microbiology 05/03/19 19:51 Wet Prep - Final Vaginal Laboratory Tests 05/03/19 05/03/19 05/03/19 19:15 19:15 19:15 WBC 6.9 RBC 4.57 Hgb 14.1 Hct 43.8 MCV 95.8 MCH 30.9 MCHC 32.2 RDW 11.8 L Plt Count 320 MPV 8.8 Neut # (Auto) 2.2 Lymph # (Auto) 3.7 H [place] # (Auto) 0.3 Eos # (Auto) 0.6 Baso # (Auto) 0.1 Absolute Nucleated RBC 0.00 Nucleated RBC % 0.0 ESR Sodium 141 Potassium 3.8 Chloride 103 Carbon Dioxide 26 Anion Gap 12.0 BUN 10 Creatinine 0.6 Estimated GFR (MDRD) 122 Glucose 87 Calcium 9.4 Total Bilirubin 0.5 AST 19 ALT 16 Alkaline Phosphatase 42 C-Reactive Protein Total Protein 7.3 Albumin 4.1 Globulin 3.2 Albumin/Globulin Ratio 1.3 Lipase 39 Urine Color YELLOW Urine Clarity HAZY Urine pH 7.0 Ur Specific [place] 1.010 Urine Protein NEGATIVE Urine Glucose (UA) NEGATIVE Urine Ketones NEGATIVE Urine Occult Blood SMALL H Urine Nitrite NEGATIVE Urine Bilirubin NEGATIVE Urine Urobilinogen 0.2 (NORMAL) Ur Leukocyte Esterase NEGATIVE Urine RBC 6-10 H Urine WBC 0-3 Ur Squamous Epith Cells NONE SEEN Urine Bacteria None Seen Ur Microscopic Review INDICATED Urine Culture Comments NOT INDICATED 05/03/19 05/03/19 19:15 19:15 WBC RBC Hgb Hct MCV MCH MCHC RDW Plt Count MPV Neut # (Auto) Lymph # (Auto) [place] # (Auto) Eos # (Auto) Baso # (Auto) Absolute Nucleated RBC Nucleated RBC % ESR 4 Sodium Potassium Chloride Carbon Dioxide Anion Gap BUN Creatinine Estimated GFR (MDRD) Glucose Calcium Total Bilirubin AST ALT Alkaline Phosphatase C-Reactive Protein < 1.0 Total Protein Albumin Globulin Albumin/Globulin Ratio Lipase Urine Color Urine Clarity Urine pH Ur Specific [place] Urine Protein Urine Glucose (UA) Urine Ketones Urine Occult Blood Urine Nitrite Urine Bilirubin Urine Urobilinogen Ur Leukocyte Esterase Urine RBC Urine WBC Ur Squamous Epith Cells Urine Bacteria Ur Microscopic Review Urine Culture Comments - Rads (name of study) pelvis US Radiology: Prelim report reviewed, EMP read contemporaneously, See rad report (Mildly hypervascular right ovary with possible tiny calcifications; inflammatory disease is a differential consideration. Arterial and venous blood flow are present to the ovaries bilaterally. Tiny bubbles of air versus calcifications in the cervix. ) PD MEDICAL DECISION MAKING - ED course Complexity details: reviewed results, re-evaluated patient, considered differential, d/w patient, d/w store consultant (Dr. Thomas) ED course: 23-year-old female with right lower quadrant/right pelvic pain of unclear etiology. Discussed ultrasound findings with Dr. Thomas, gynecology who recommends treating with Rocephin and azithromycin and follow-up in the clinic. Patient is well-appearing, nontoxic. Afebrile. Unclear etiology of her symptoms. Patient counseled regarding signs and symptoms for which I believe and urgent re-evaluation would be necessary. Patient with good understanding of and agreement to plan and is comfortable going home at this time This document was made in part using voice recognition software. While efforts are made to proofread this document, sound alike and grammatical errors may occur. Departure - Departure Disposition: 01 Home, Self Care Clinical Impression: Pelvic pain Condition: Good Instructions: ED Pelvic Pain [facility] Follow-Up: Jignesh Thomas MD [Provider Admit Priv/Credential] - Within 3 Days Prescriptions: HYDROmorphone [Dilaudid] 2 mg PO Q4H PRN #14 tablet PRN Reason: Abdominal Pain Comments: Follow-up with gynecology on Monday. Call the office for an appointment on Monday or Monday. Return if you worsen. The antibiotics will hopefully help with your symptoms. Forms: Activity restrictions Discharge Date/Time: 05/03/19 22:51
[2019-05-04 19:45] LABS: TRICHOMONAS VAGINALIS DNA NEGATIVE (NEGATIVE)
== END 2019-05-03 22:51 | disposition home or self-care (01) ==
LOC: ED 19:01
DX: R10.2 Pelvic and perineal pain (principal); F17.200 Nicotine dependence, unspecified, uncomplicated
CPT/HCPCS: 36415; 76830; 76856; 80053; 81001; 83690; 85025; 85651; 86140; 87210; 87491; 87591; 87661; 93975; 96361; 96365; 96375; 96376; 99283; 99284; A9270; J1170; J7040; 81003; 87086

== ENCOUNTER 2019-05-05 21:29 | Emergency (ER) | payer OTHER ==
--- NOTE | 2019-05-05 21:53 | ED Physician Documentation ---
PD HPI ABD PAIN - Stated complaint Stated Complaint: ABD PX - Chief complaint Chief Complaint: Abd Pain - History obtained from History obtained from: Patient - History of Present Illness Timing - onset: Other (Cannot specify but this is her fourth visit for the same complaint.) Timing - details: Gradual onset Pain level now: 9 (Rates it at a 9.5 and says it is causing her not to even be able to speak properly.) Quality: Cramping, Sharp Location: RLQ Radiation: Other (Into the right upper quadrant) Improved by: Meds (Dilaudid is the only thing that is helped the pain) Worsened by: Moving Associated symptoms: Nausea, Vomiting (Last emesis was 3 or 4:00 this afternoon), Constipation (Reports no bowel movement in a week), Loss of appetite (Has not been able to eat). No: Fever, Dysuria Similar symptoms before: Work up / diagnostics Recently seen: Emergency Dept - Additional information Additional information: Is a 23-year-old returns for her fourth visit in the past several days with complaints of "really, really" bad pain in her "stomach". She says the only time that she feels hungry is if she takes Dilaudid otherwise she cannot eat. In the course of the work-up over the past visits that she had an ultrasound of her ovaries that showed 1 of them was "swollen" she was discharged with antibiotics in hopes that that would help resolve her symptoms. She also had a CT scan in which they apparently did not fully see the appendix but a surgeon was consulted and he physically evaluated her 4 days ago did not feel that she had a surgical abdomen. Pain has always been suprapubic but now it has settled into the right lower quadrant and is radiating into the right upper quadrant. She rates it at a 9-1/2 out of 10 just sitting here talking to me says it is worse with movement and the only thing that helps alleviate it is Dilaudid. She denies any abdominal surgery. She is nauseous and trying to eat a bagel today without success. She is drinking. Denies fever. She reports no bowel movement in a week and has not tried a laxative. She is passing gas. 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 Her pain is been constant and waxing and waning. Review of Systems Constitutional: denies: Fever Respiratory: denies: Dyspnea, Cough GI: reports: Abdominal Pain, Nausea, Vomiting, Constipation. 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 : None HEENT: None Psych: None Musculoskeletal: None Derm: None - Past Surgical History Past Surgical History: No - Present Medications Home Medications: Ambulatory Orders Medication Instructions Recorded Confirmed Ibuprofen [Motrin] 800 mg PO Q8H PRN #30 tablet 05/02/19 05/05/19 Ondansetron Odt [Zofran] 4 mg TL Q6H PRN #10 tablet 05/02/19 05/05/19 HYDROmorphone [Dilaudid] 2 mg PO Q4H PRN #14 tablet 05/03/19 05/05/19 - Allergies Allergies/Adverse Reactions: Allergies Allergy/AdvReac Type Severity Reaction Status Date / Time No Known Drug Allergies Allergy Verified 05/03/19 19:08 - Social History Does the pt smoke?: Yes Smoking Status: Current every day smoker Does the pt drink ETOH?: Yes Does the pt have substance abuse?: No - Immunizations Immunizations are current?: Yes - POLST Patient has POLST: No PD ED PE NORMAL - Vitals Vital signs reviewed: Yes - General General: Alert and oriented X 3, No acute distress, Well developed/nourished - HEENT HEENT: Atraumatic, PERRL, Moist mucous membranes - Neck Neck: Thyroid normal - Cardiac Cardiac: RRR, No murmur - Respiratory Respiratory: No respiratory distress, Clear bilaterally - Abdomen Abdomen: Normal bowel sounds, Soft, Other (Abdomen is soft. 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 - Psych Psych: Normal affect Results - Vitals Vitals: Vital Signs - 24 hr 05/05/19 05/05/19 21:37 22:43 Temperature 36.5 C Heart Rate 80 86 Respiratory 16 16 Rate Blood Pressure 110/61 116/71 O2 Saturation 100 100 Oxygen O2 Source Room air - Labs Labs: Laboratory Tests 05/05/19 05/05/19 05/05/19 21:55 22:25 22:25 WBC 7.0 RBC 4.12 L Hgb 13.3 Hct 39.9 MCV 96.8 MCH 32.3 H MCHC 33.3 RDW 11.7 L Plt Count 281 MPV 8.7 Neut # (Auto) 2.7 Lymph # (Auto) 3.1 [place] # (Auto) 0.3 Eos # (Auto) 0.7 Baso # (Auto) 0.1 Absolute Nucleated RBC 0.00 Nucleated RBC % 0.0 Sodium 140 Potassium 3.6 Chloride 100 L Carbon Dioxide 27 Anion Gap 13.0 BUN 9 Creatinine 0.7 Estimated GFR (MDRD) 102 Glucose 92 Calcium 9.5 Total Bilirubin 0.4 AST 22 ALT 15 Alkaline Phosphatase 39 L Total Protein 6.9 Albumin 4.0 Globulin 2.9 Albumin/Globulin Ratio 1.4 Lipase 38 Urine Color YELLOW Urine Clarity CLEAR Urine pH 7.5 Ur Specific [place] 1.010 Urine Protein NEGATIVE Urine Glucose (UA) NEGATIVE Urine Ketones NEGATIVE Urine Occult Blood TRACE-INTA Urine Nitrite NEGATIVE Urine Bilirubin NEGATIVE Urine Urobilinogen 0.2 (NORMAL) Ur Leukocyte Esterase NEGATIVE Ur Microscopic Review NOT INDICATED Urine Culture Comments NOT INDICATED PD MEDICAL DECISION MAKING - ED course Complexity details: reviewed old records, reviewed results, re-evaluated patient, d/w patient ED course: Patient received Toradol 60 mg IM and when I went back to discuss her lab results she was sleeping so soundly that she did not even wake up and I pulled the curtain back. When she did wake up her eyes kept drifting off like she was sleeping. She said she just felt odd. Her pain was better down to at least a 7 out of 10. Her vital signs are all normal and her white blood cell count is normal. Liver enzymes and renal function as well as the lipase are normal. She is already been worked up with CT scan and ultrasound, she is been evaluated by a surgeon and referred to [facility]. She requested a prescription for pain medication. She been previously given Dilaudid and I told her initially upfront that I would not prescribe Dilaudid so she asked for something "like that" I declined any prescriptions for narcotics at this point. She will be discharged for outpatient follow-up with the [facility]. Departure - Departure Disposition: Home, Self Care Clinical Impression: Abdominal pain Qualifiers: Abdominal location: right lower quadrant Qualified Code(s): R10.31 - Right lower quadrant pain Condition: Good Instructions: ED Abdominal Pain Unkn Cause Follow-Up: Jignesh Thomas MD [Provider Admit Priv/Credential] - Comments: You should follow-up with the anesthesiologists' assistant as outlined at your previous discharge. At this time there is no indication that you have a surgical process in the abdomen. Nothing more than Tylenol or ibuprofen for the pain. You indicated you have Zofran at home if needed for nausea or vomiting.
[2019-05-05 21:59] LABS: BILIRUBIN,URINE NEGATIVE (NEGATIVE); GLUCOSE, URINE (UA) NEGATIVE (NEGATIVE); KETONES,URINE (UA) NEGATIVE (NEGATIVE); LEUKOCYTE ESTERASE, URINE NEGATIVE (NEGATIVE); NITRITE,URINE NEGATIVE (NEGATIVE); OCCULT BLOOD,URINE TRACE-INTA (NEGATIVE); PH,URINE 7.5 PH (5.0-7.5); PROTEIN,URINE NEGATIVE (NEGATIVE); UROBILINOGEN,URINE 0.2 (NORMAL) E.U./dL (NORMAL)
[2019-05-05 22:01] LABS: CLARITY,URINE CLEAR (CLEAR)
[2019-05-05] MEDS ORDERED: KETOROLAC 60 MG/2 ML VIAL IM STA (22:11)
[2019-05-05 22:32] LABS: BASOPHILS # (AUTO) 0.1 10^3/uL (0.0-0.1); EOSINOPHILS # (AUTO) 0.7 10^3/uL (0.0-0.7); EOSINOPHILS % (AUTO) 10.5 %; HGB - HEMOGLOBIN 13.3 g/dL (12.0-16.0); LYMPHOCYTES # (AUTO) 3.1 10^3/uL (1.5-3.5); LYMPHOCYTES % (AUTO) 44.7 %; MEAN CORPUSCULAR HEMOGLOBIN 32.3 pg (27.0-31.0); MEAN CORPUSCULAR HGB CONC 33.3 g/dL (32.0-36.0); MEAN CORPUSCULAR VOLUME 96.8 fL (81.0-99.0); MEAN PLATELET VOLUME 8.7 fL (7.9-10.8); MONOCYTES # (AUTO) 0.3 10^3/uL (0.0-1.0); MONOCYTES % (AUTO) 4.4 %; NEUTROPHILS # (AUTO) 2.7 10^3/uL (1.5-6.6); NEUTROPHILS % (AUTO) 39.3 %; PLT - PLATELET COUNT 281 10^3/uL (130-450); RED BLOOD COUNT 4.12 10^6/uL (4.20-5.40); RED CELL DISTRIBUTION WIDTH 11.7 % (12.0-15.0)
[2019-05-05 22:46] LABS: ALBUMIN/GLOBULIN RATIO 1.4 (1.0-2.2); BILIRUBIN,TOTAL 0.4 mg/dL (0.2-1.0); CALCIUM 9.5 mg/dL (8.5-10.3); CREATININE 0.7 mg/dL (0.4-1.0); TOTAL PROTEIN 6.9 g/dL (6.7-8.2)
[2019-05-06 00:01] VITALS: BP 118/70
== END 2019-05-05 23:58 | disposition home or self-care (01) ==
LOC: ED 21:29
DX: R10.31 Right lower quadrant pain (principal); R10.11 Right upper quadrant pain; F17.200 Nicotine dependence, unspecified, uncomplicated
CPT/HCPCS: 36415; 80053; 81001; 81003; 83690; 85025; 87086; 96372; 99283; 99284

== ENCOUNTER 2019-05-08 08:00 | Outpatient (CLI) | payer OTHER ==
[2019-05-09 08:47] LABS: TRICHOMONAS VAGINALIS DNA INDETERMINATE (NEGATIVE)
== END 2019-05-08 08:01 | disposition home or self-care (01) ==
LOC: LAB.R 08:00
PROVIDERS: ATTEND Obstetrics & Gynecology
DX: R10.2 Pelvic and perineal pain (principal)
CPT/HCPCS: 87491; 87591; 87661

== ENCOUNTER 2019-05-14 08:00 | Outpatient (CLI) | payer OTHER ==
[2019-05-14 22:04] LABS: TRICHOMONAS VAGINALIS DNA NEGATIVE (NEGATIVE)
== END 2019-05-14 23:59 | disposition home or self-care (01) ==
LOC: LAB.R 08:00
PROVIDERS: ATTEND Obstetrics & Gynecology
DX: R10.2 Pelvic and perineal pain (principal)
CPT/HCPCS: 87491; 87591; 87661

== ENCOUNTER 2019-05-14 15:10 | Outpatient (CLI) | payer OTHER ==
[2019-05-14 15:44] LABS: BASOPHILS # (AUTO) 0.1 10^3/uL (0.0-0.1); EOSINOPHILS # (AUTO) 0.4 10^3/uL (0.0-0.7); EOSINOPHILS % (AUTO) 8.2 %; HGB - HEMOGLOBIN 13.6 g/dL (12.0-16.0); LYMPHOCYTES % (AUTO) 40.4 %; MEAN CORPUSCULAR HEMOGLOBIN 31.7 pg (27.0-31.0); MEAN CORPUSCULAR HGB CONC 33.1 g/dL (32.0-36.0); MEAN CORPUSCULAR VOLUME 95.8 fL (81.0-99.0); MONOCYTES # (AUTO) 0.3 10^3/uL (0.0-1.0); MONOCYTES % (AUTO) 6.8 %; NEUTROPHILS # (AUTO) 2.2 10^3/uL (1.5-6.6); NEUTROPHILS % (AUTO) 43.4 %; PLT - PLATELET COUNT 279 10^3/uL (130-450); RED BLOOD COUNT 4.29 10^6/uL (4.20-5.40); RED CELL DISTRIBUTION WIDTH 11.7 % (12.0-15.0)
== END 2019-05-14 15:11 | disposition home or self-care (01) ==
LOC: LAB 15:10
PROVIDERS: ATTEND Obstetrics & Gynecology
DX: R10.2 Pelvic and perineal pain (principal)
CPT/HCPCS: 36415; 85025; 85651; 87491; 87591; 87661

== ENCOUNTER 2019-05-24 09:15 | Emergency (ER) | payer OTHER ==
--- NOTE | 2019-05-24 09:26 | ED Physician Documentation ---
PD HPI ABD PAIN - Stated complaint Stated Complaint: LOWER ABD PX - Chief complaint Chief Complaint: Abd Pain - History obtained from History obtained from: Patient - History of Present Illness Timing - onset: How many months ago (2) Timing - details: Still present Pain level max: 10 Pain level now: 8 Quality: Dull Location: RLQ Improved by: Meds (Tramadol) Associated symptoms: Nausea Recently seen: Emergency Dept (This is a 23-year-old female who denies past medical history who presents with continuous right lower quadrant abdominal pain. She states this began 2 months ago in the absence of known inciting for actors. She is been seen in the emergency department around 4 times for this, she had a work-up including a CT and ultrasound which been unrevealing. She has a laparoscopy scheduled 5 days of now, however she states that the tramadol which she is been prescribed is not been sufficient in controlling her pain. She does have some nausea associated associated with this pain, however she has not had any vomiting. She denies vaginal symptoms such as itching, burning, or abnormal bleeding. She is sexually active with one male partner is monogamous. She has had negative testing recently as well. She states that the overall quality and severity the pain is unchanged from recently, however is just not improving so she sought further care today.) Review of Systems Constitutional: denies: Fever Throat: denies: Oral lesions / sores Cardiac: denies: Chest pain / pressure Respiratory: denies: Cough GI: reports: Abdominal Pain, Nausea : denies: Dysuria Skin: denies: Rash Endocrine: denies: Polyuria Immunocompromised: denies: Immunocompromised PD PAST MEDICAL HISTORY - Past Medical History Cardiovascular: None Respiratory: None Neuro: None Endocrine/Autoimmune: None GI: None REFLEXOLOGIST: None : None HEENT: None Psych: None Musculoskeletal: None Derm: None - Past Surgical History Past Surgical History: No - Present Medications Home Medications: Ambulatory Orders Medication Instructions Recorded Confirmed Ibuprofen [Motrin] 800 mg PO Q8H PRN #30 tablet 05/02/19 05/24/19 Ondansetron Odt [Zofran] 4 mg TL Q6H PRN #10 tablet 05/02/19 05/24/19 Ondansetron Odt [Zofran] 4 mg TL Q6H PRN #10 tablet 05/24/19 - Allergies Allergies/Adverse Reactions: Allergies Allergy/AdvReac Type Severity Reaction Status Date / Time No Known Drug Allergies Allergy Verified 05/24/19 09:20 - Social History Does the pt smoke?: Yes Smoking Status: Current every day smoker Does the pt drink ETOH?: Yes Does the pt have substance abuse?: No - Immunizations Immunizations are current?: Yes - POLST Patient has POLST: No PD ED PE NORMAL - Vitals Vital signs reviewed: Yes - General General: Alert and oriented X 3 - HEENT HEENT: No: Atraumatic - Neck Neck: Supple, no meningeal sign - Cardiac Cardiac: RRR, No murmur - Respiratory Respiratory: Clear bilaterally - Abdomen Abdomen: Soft, Other (Nondistended. There is some distractible tenderness in the right lower quadrant, right upper quadrant and left upper quadrant are nontender to palpation. There is no guarding. Negative psoas sign.) - Derm Derm: Warm and dry - Extremities Extremities: No deformity - Neuro Neuro: Alert and oriented X 3 - Psych Psych: Normal mood, Normal affect Results - Vitals Vitals: Vital Signs - 24 hr 05/24/19 05/24/19 05/24/19 09:17 11:11 11:37 Temperature 36.8 C Heart Rate 126 H 88 68 Respiratory 14 19 20 Rate Blood Pressure 153/98 H 129/75 O2 Saturation 99 100 99 Oxygen O2 Source Room air - Labs Labs: Laboratory Tests 05/24/19 05/24/19 05/24/19 09:45 09:52 09:52 WBC 6.5 RBC 4.53 Hgb 14.4 Hct 43.6 MCV 96.2 MCH 31.8 H MCHC 33.0 RDW 12.1 Plt Count 283 MPV 8.5 Neut # (Auto) 3.6 Lymph # (Auto) 2.0 [place] # (Auto) 0.4 Eos # (Auto) 0.5 Baso # (Auto) 0.1 Absolute Nucleated RBC 0.00 Nucleated RBC % 0.0 Sodium 140 Potassium 3.7 Chloride 105 Carbon Dioxide 26 Anion Gap 9.0 BUN 15 Creatinine 0.6 Estimated GFR (MDRD) 122 Glucose 71 Calcium 9.7 Total Bilirubin 0.7 AST 18 ALT 14 Alkaline Phosphatase 38 L Total Protein 7.0 Albumin 4.2 Globulin 2.8 Albumin/Globulin Ratio 1.5 Lipase 29 Urine Color YELLOW Urine Clarity CLEAR Urine pH 7.5 Ur Specific [place] 1.020 Urine Protein NEGATIVE Urine Glucose (UA) NEGATIVE Urine Ketones NEGATIVE Urine Occult Blood NEGATIVE Urine Nitrite NEGATIVE Urine Bilirubin NEGATIVE Urine Urobilinogen 0.2 (NORMAL) Ur Leukocyte Esterase NEGATIVE Ur Microscopic Review NOT INDICATED Urine Culture Comments NOT INDICATED Urine HCG, Qual NEGATIVE PD MEDICAL DECISION MAKING - ED course Complexity details: considered differential (Appendicitis, cystitis, PID/STD, , miscarriage, ovarian torsion, chronic abdominal pain, appendicitis, gastroenteritis) ED course: This is a 23-year-old female who presents with worsening of chronic abdominal pain. On initial examination she is tachycardic in triage however her heart rate is normalized at the time of my examination. She does have some mild right lower quadrant tenderness, no suprapubic tenderness, and no vaginal symptoms. Given the chronicity of her symptoms, as well as a negative ultrasound and CT scan, appendicitis, and pelvic pathology such as torsion are highly unlikely. She has no risk factors for PID, is monogamous with one partner, and has no vaginal symptoms. She is received multiple work-ups for this complaint, and she in fact has a laparoscopy scheduled in several days for further evaluation of her discomfort. Labs are drawn, CBC is unremarkable with no leukocytosis, CMP likewise unremarkable, hCG negative, lipase normal. Urinalysis negative for infection. Patient was given Zofran for nausea, we tried a low dose of haloperidol for her abdominal pain. On repeat examination her abdomen is less tender, her pain is somewhat improved, she is feeling well enough to go home. I do not see signs of an appendicitis today based on her reassuring exam, vitals, labs. I discussed the results of her work-up, strict return precautions including vomiting, worsening abdominal pain, fever, or any other concerning symptoms. I recommended that she continue to follow-up closely with her OB provider as she has laparoscopy in several days from now. Patient agreed with this plan was discharged home in good condition. Departure - Departure Disposition: 01 Home, Self Care Clinical Impression: Abdominal pain Qualifiers: Abdominal location: right lower quadrant Qualified Code(s): R10.31 - Right lower quadrant pain Condition: Good Instructions: ED Abdominal Pain Unkn Cause Follow-Up: Jignesh Thomas MD [Provider Admit Priv/Credential] - Within 1 week Prescriptions: Ondansetron Odt [Zofran] 4 mg TL Q6H PRN #10 tablet PRN Reason: Nausea / Vomiting Comments: You were seen today for abdominal pain. Please follow-up with your OB provider as soon as possible, return to emergency department if you develop any new concerning symptoms such as persistent vomiting, worsening abdominal pain, or other concerning symptoms. Forms: Activity restrictions Discharge Date/Time: 05/24/19 11:37
[2019-05-24] MEDS ORDERED: KETOROLAC 15 MG/ML VIAL IVP STA (09:41)
[2019-05-24] MEDS ORDERED: ONDANSETRON 4 MG/2 ML VIAL IVP STA (09:41)
[2019-05-24 09:56] LABS: BASOPHILS # (AUTO) 0.1 10^3/uL (0.0-0.1); BASOPHILS % (AUTO) 1.2 %; EOSINOPHILS # (AUTO) 0.5 10^3/uL (0.0-0.7); EOSINOPHILS % (AUTO) 7.1 %; HGB - HEMOGLOBIN 14.4 g/dL (12.0-16.0); LYMPHOCYTES % (AUTO) 30.4 %; MEAN CORPUSCULAR HEMOGLOBIN 31.8 pg (27.0-31.0); MEAN CORPUSCULAR VOLUME 96.2 fL (81.0-99.0); MEAN PLATELET VOLUME 8.5 fL (7.9-10.8); MONOCYTES # (AUTO) 0.4 10^3/uL (0.0-1.0); NEUTROPHILS # (AUTO) 3.6 10^3/uL (1.5-6.6); NEUTROPHILS % (AUTO) 54.8 %; PLT - PLATELET COUNT 283 10^3/uL (130-450); RED BLOOD COUNT 4.53 10^6/uL (4.20-5.40); RED CELL DISTRIBUTION WIDTH 12.1 % (12.0-15.0); WHITE BLOOD COUNT 6.5 x10^3/uL (4.8-10.8)
[2019-05-24 09:59] LABS: BILIRUBIN,URINE NEGATIVE (NEGATIVE); GLUCOSE, URINE (UA) NEGATIVE (NEGATIVE); KETONES,URINE (UA) NEGATIVE (NEGATIVE); LEUKOCYTE ESTERASE, URINE NEGATIVE (NEGATIVE); NITRITE,URINE NEGATIVE (NEGATIVE); OCCULT BLOOD,URINE NEGATIVE (NEGATIVE); PH,URINE 7.5 PH (5.0-7.5); PROTEIN,URINE NEGATIVE (NEGATIVE); UROBILINOGEN,URINE 0.2 (NORMAL) E.U./dL (NORMAL)
[2019-05-24 10:01] LABS: CLARITY,URINE CLEAR (CLEAR); HCG UR QUAL NEGATIVE
[2019-05-24 10:08] LABS: ALBUMIN 4.2 g/dL (3.2-5.5); ALBUMIN/GLOBULIN RATIO 1.5 (1.0-2.2); BILIRUBIN,TOTAL 0.7 mg/dL (0.2-1.0); CALCIUM 9.7 mg/dL (8.5-10.3); CREATININE 0.6 mg/dL (0.4-1.0)
[2019-05-24] MEDS ORDERED: HALOPERIDOL 5 MG/ML VIAL IVP ONE (10:21)
[2019-05-24 11:39] VITALS: BP 129/75
== END 2019-05-24 11:37 | disposition home or self-care (01) ==
LOC: ED 09:15
DX: R10.31 Right lower quadrant pain (principal); F17.200 Nicotine dependence, unspecified, uncomplicated
CPT/HCPCS: 36415; 80053; 81001; 81003; 81025; 83690; 85025; 87086; 96374; 96375; 99284

== ENCOUNTER 2019-05-28 16:25 | Outpatient (CLI) | payer OTHER ==
[2019-05-28 16:59] LABS: HCG UR QUAL NEGATIVE
[2019-05-28 17:02] LABS: BASOPHILS # (AUTO) 0.1 10^3/uL (0.0-0.1); BASOPHILS % (AUTO) 1.1 %; EOSINOPHILS # (AUTO) 0.5 10^3/uL (0.0-0.7); EOSINOPHILS % (AUTO) 4.9 %; HGB - HEMOGLOBIN 12.4 g/dL (12.0-16.0); LYMPHOCYTES # (AUTO) 2.8 10^3/uL (1.5-3.5); LYMPHOCYTES % (AUTO) 28.9 %; MEAN CORPUSCULAR HEMOGLOBIN 32.5 pg (27.0-31.0); MEAN CORPUSCULAR HGB CONC 33.5 g/dL (32.0-36.0); MEAN CORPUSCULAR VOLUME 97.1 fL (81.0-99.0); MEAN PLATELET VOLUME 8.7 fL (7.9-10.8); MONOCYTES # (AUTO) 0.5 10^3/uL (0.0-1.0); MONOCYTES % (AUTO) 5.7 %; NEUTROPHILS # (AUTO) 5.6 10^3/uL (1.5-6.6); NEUTROPHILS % (AUTO) 58.8 %; PLT - PLATELET COUNT 259 10^3/uL (130-450); RED BLOOD COUNT 3.81 10^6/uL (4.20-5.40); RED CELL DISTRIBUTION WIDTH 11.8 % (12.0-15.0); WHITE BLOOD COUNT 9.5 x10^3/uL (4.8-10.8)
[2019-05-28 17:31] LABS: ALBUMIN 3.9 g/dL (3.2-5.5); ALBUMIN/GLOBULIN RATIO 1.5 (1.0-2.2); BILIRUBIN,TOTAL 0.3 mg/dL (0.2-1.0); CALCIUM 8.9 mg/dL (8.5-10.3); CREATININE 0.7 mg/dL (0.4-1.0); TOTAL PROTEIN 6.5 g/dL (6.7-8.2)
== END 2019-05-28 16:26 | disposition home or self-care (01) ==
LOC: LAB 16:25
PROVIDERS: ATTEND Obstetrics & Gynecology
DX: Z01.812 Encounter for preprocedural laboratory examination (principal); R10.2 Pelvic and perineal pain
CPT/HCPCS: 36415; 80053; 81025; 85025; 86850; 86900; 86901

== ENCOUNTER 2019-05-29 09:51 | Day surgery (SDC) | payer OTHER ==
[2019-05-29] MEDS ORDERED: MIDAZOLAM 2 MG/2 ML VIAL IVP ONE (09:52)
[2019-05-29] MEDS ORDERED: PROPOFOL 200 MG/20 ML VIAL IVP ONE (09:52)
[2019-05-29] MEDS ORDERED: fentaNYL 100 MCG/2 ML VIAL IVP ONE (09:52)
[2019-05-29] MEDS ORDERED: SUGAMMADEX 200 MG/2 ML VIAL IVP ONE ×2 (09:52→14:44)
[2019-05-29] MEDS ORDERED: ONDANSETRON 4 MG/2 ML VIAL IVP ONE (09:52)
[2019-05-29] MEDS ORDERED: ACETAMINOPHEN 1,000 MG/100 ML 100 ML IV ONE ×2 (09:52→12:46)
[2019-05-29] MEDS ORDERED: KETOROLAC 30 MG/ML VIAL IVP ONE (09:52)
[2019-05-29] MEDS ORDERED: ROCURONIUM 50 MG/5 ML VIAL IVP ONE (09:52)
[2019-05-29] MEDS ORDERED: DEXAMETHASONE 10 MG/ML VIAL IVP ONE (09:52)
[2019-05-29] MEDS ORDERED: LACTATED RINGERS 1,000 ML IV ONE ×2 (10:00→15:42)
[2019-05-29] MEDS ORDERED: CEFAZOLIN SODIUM IN 0.9 % NACL 2 GM/100 ML BAG IV ONE (10:18)
--- NOTE | 2019-05-29 10:26 | ANESTHESIA ---
Pre-Anesthesia VS, & Labs - Diagnosis R sided pelvic pain - Procedure diagnostic laparoscopy w/possible cystectomy/oopherectomy, cystoscopy Vital Signs: Temp Pulse Resp BP Pulse Ox 36.2 C L 92 12 113/93 H 100 05/29/19 10:02 05/29/19 10:02 05/29/19 10:02 05/29/19 10:02 05/29/19 10:02 Height 5 ft 1 in Weight (kg) 58.7 kg Body Mass Index 22.6 - NPO >8 hours - Is Patient ?: No (-HCG 05/28/19) - Lab Results Lab results reviewed: Yes Home Medications and Allergies Allergies/Adverse Reactions: Allergies Allergy/AdvReac Type Severity Reaction Status Date / Time No Known Drug Allergies Allergy Verified 05/24/19 09:20 Anes History & Medical History - Anesthetic History Anesthesia Complications: reports: No previous complications Family history of Anesthesia Complications: Denies Family history of Malignant Hyperthermia: Denies - Medical History Cardiovascular: reports: None Pulmonary: reports: None Gastrointestinal: reports: None Urinary: reports: None Neuro: reports: None Musculoskeletal: reports: None Endocrine/Autoimmune: reports: None Skin: reports: None Smoking Status: Current every day smoker Exam General: Alert, Oriented x3, Cooperative Dental: WNL Mouth Openin Fingerbreadth Neck Mobility: Normal Mallampati classification: II Thyromental Distance: 4-6 cm Respiratory: Lungs clear, Normal breath sounds Cardiovascular: Regular rate Neurological: Normal speech Mental/Cognitive Status: Alert/Oriented X3, Normal for patient Cognitive Status: Within normal limits Plan Anesthesia Type: General Consent for Procedure(s) Verified and Reviewed: Yes Code Status: Attempt Resuscitation ASA classification: 2-Mild systemic disease Is this case an emergency?: No
[2019-05-29] MEDS ORDERED: BUPIVACAINE 0.25%-EPI 1:200000 PF 30 ML VIAL ONE (11:10)
[2019-05-29] MEDS ORDERED: oxyCODONE 5 MG TABLET PO PRN (14:51)
[2019-05-29] MEDS ORDERED: ONDANSETRON 4 MG/2 ML VIAL IVP PRN (14:51)
[2019-05-29] MEDS ORDERED: LORazepam 2 MG/ML VIAL IVP PRN (14:51)
[2019-05-29] MEDS ORDERED: HYDROmorphone 0.5 MG/0.5 ML SYRINGE IVP PRN (14:51)
--- NOTE | 2019-05-29 14:57 | OPERATIVE REPORT ---
Operative Report - General Procedure Date: 05/29/19 Planned Procedure: Diagnostic Laproscopy with possible cystectomy or oopherectomy. Pre-Op Diagnosis: Left sided pelvic miki nsuspect adhesions Procedure Performed: Diagnostic laproscopy with Appendectomy and lysis of adhesions. Post Op Diagnosis: Pelvic adhesions, signs of prior appendicitis - Procedure Note Primary Surgeon: Jignesh Thomas MD Secondary Surgeon: cara Cedillo MD Anesthesia Provider: Lokesh Anders MD Anesthesia Technique: General ET tube Pathology: Appendex IV Fluids (mL): 700 Estimated Blood Loss (mL): 25 Urine Output (mL): 100 Indications: Pelvic pain Findings: Adhesions surrounding the Appendex. Complications: None - Other Other Information/Narrative: Dictastion # [id number]
[2019-05-29] MEDS ORDERED: ONDANSETRON 4 MG/2 ML VIAL ONE (15:07)
[2019-05-29] MEDS ORDERED: SCOPOLAMINE PATCH TOP ONE (15:08)
[2019-05-29] MEDS ORDERED: HYDROmorphone 0.5 MG/0.5 ML SYRINGE ONE (15:22)
[2019-05-29] MEDS ORDERED: PROMETHAZINE 25 MG/1 ML VIAL ONE (15:41)
--- NOTE | 2019-05-29 16:07 | OPERATIVE REPORT ---
DATE OF SERVICE: 05/29/2019 Physician: Jignesh Thomas MD PREOPERATIVE DIAGNOSIS: Right lower quadrant pain, suspect adhesions. POSTOPERATIVE DIAGNOSIS: Periappendiceal adhesions. PROCEDURE PERFORMED: Diagnostic laparoscopy with lysis of periappendiceal adhesions and appendectomy . SURGEON: Jignesh Thomas MD. TICKET WORKER: Yajaira Cedillo MD ANESTHESIA PROVIDER: Lokesh Gordon MD. ANESTHESIA: General via endotracheal tube. PATHOLOGY: Appendix. IV FLUIDS BLOOD LOSS: 700 mL ESTIMATED BLOOD LOSS: 25 mL URINE OUTPUT: 100 mL FINDINGS: Upon entering the abdominal cavity, she shows a cyst on the left ovary, which was compatib le with an ovulatory cyst and a corpus luteum. The uterus appeared somewhat irregular in contour. T he right fallopian tube appeared to be normal as well as the ovary. The cul-de-sac was free of adhes ions or scar tissue. Upon inspecting the appendix; however, there were numerous adhesions surroundin g it. The appendix was doubled back on itself as well as being adhered to the retrocecal area. The terminal ileum also had some adhesions to the left pelvic sidewall. The suspicion of previous chroni c appendicitis was entertained. General surgery was consulted during the procedure, at which time an appendectomy was performed. PROCEDURE IN DETAIL: Following adequate endotracheal anesthesia, patient was placed in dorsal lithot denia position in Landen stirrups. At this point, she was prepped and draped in the usual fashion. A p elvic examination was performed under anesthesia. Uterus was palpated roughly 8-9 cm anterior. The adnexa were not palpably enlarged. A timeout was performed, at which time, the concerns were address ed. A speculum was then placed in the vagina. The cervix was visualized, grasped with a single-toot h tenaculum. The cervix was dilated up to 6 mm and then sounded to 9 cm. A HUMI uterine manipulator was placed without difficulty. At this point, the crusher loader equipment operator's gloves were changed, and a stab wound was made in the subumbilical region with a #15 blade following local anesthesia of 0.25% Marcaine wit h epinephrine. A trocar and sheath were introduced under direct visualization without difficulty. A t this point, both left and right lower quadrant trocars were placed following skin incision and loca l anesthesia with 0.25% Marcaine. The left tube and ovary inspected and there was evidence of what a ppeared to be a corpus luteum. The uterus appeared to be free of adhesions in the cul-de-sac as well as the uterosacral ligaments and posterior broad ligaments. The right ovary also appeared to be iris e of disease. The gallbladder was inspected and noted to be normal. However, when trying to inspect the appendix, it was fairly adherent to the posterior fossa on the right hand side. There was also evidence of the terminal ileum being adhered to the left pelvic sidewall. Dr. Yajaira Cedillo was consulte d at this time. She presented, at which time we discussed the concerns about whether this was a lunchroom monitor tong appendicitis or prior appendicitis. She felt that removal of the appendix at this time would be appropriate. She performed this and her dictation will appear separately. Following end of appendec daniela, the pelvis and gutters were all irrigated with copious amounts of sterile saline. There is no evidence of any bleeding. The subumbilical port, which had been enlarged to 11 mm was then closed ut ilizing a Jamir-Cole with 2 sutures of #0 Vicryl on a UR-6 needle. There was evidence of good c losure visualized and documented laparoscopically. At this point, the lower quadrant trocars were re moved and the CO2 was allowed to escape. The incisions were all closed using 4-0 Monocryl subcuticul ar and then Dermabond was used to dress these. The instruments were then removed from the vagina. Rosalie meraz tolerated the procedure well and was taken to recover and taken to recovery in stable conditio n. Sponge and needle counts were correct. TD: 05/29/2019 15:08
[2019-05-29] MEDS ORDERED: oxyCODONE 5 MG TABLET ONE (16:16)
[2019-05-29 17:39] VITALS: BP 101/56
--- NOTE | 2019-06-05 17:47 | OPERATIVE REPORT ---
Operative Report - General Procedure Date: 05/29/19 Planned Procedure: None - Intraoperative Consultation Pre-Op Diagnosis: Pelvic Pain Procedure Performed: Appendectomy Post Op Diagnosis: Pelvic Pain - Procedure Note Primary Surgeon: Mamadou Secondary Surgeon: Martha Anesthesia Technique: General ET tube, Local Pathology: Appendix to pathology in formalin Estimated Blood Loss (mL): 5 Indications: Enlarged scarred and abnormal appearing appendix in the setting of right sided pelvic pain Findings: Abnormal appendix Complications: None apparent - Other Other Information/Narrative: I was called for intraoperative consultation by Dr. Thomas. He reported this young lady had been complaining of several weeks of pelvic and right sided pain. She was brought to the operating room for diagnostic laparoscopy and indicated procedures. Dr. Thomas noted the appendix was abnormal in appearance and consulted me for management of this portion of the procedure only. When I arrived, the patient was asleep on the operating table and all trocars were in place. I began by mobilizing the right colon toward the midline. This was done with a mixture of sharp and blunt dissection. There were numerous right lower quadrant adhesions noted in the region of the cecum and appendix. I was able to visualize the appendix in the retrocecal position. The appendix was carefully elevated. It was grossly abnormal in appearance with a short and thickened mesoappendix. A window was created in the mesoappendix at the junction of the cecum and appendix. A laparoscopic stapling device was used to liberate the appendix from its attachment to the cecum. This left the appendix attached by its mesentery. A vascular load of the stapler was then used to divide the mesoappendix. The appendix was placed in a bag and removed via the umbilical port. The camera was replaced and the operative site checked for hemostasis. It was irrigated with saline and aspirated free of all fluid and particulate matter. This concluded my involvement in this procedure. Dr. Thomas continued the operation which is dictated in a separate document.
== END 2019-05-29 09:52 | disposition home or self-care (01) ==
LOC: SDS 09:51
PROVIDERS: ATTEND Obstetrics & Gynecology
PROC: 0DNB4ZZ Release Ileum, Percutaneous Endoscopic Approach (ICD-10-PCS; 2019-05-29)
PROC: 0DTJ4ZZ Resection of Appendix, Percutaneous Endoscopic Approach (ICD-10-PCS; principal; 2019-05-29 11:00)
DX: K35.32 Acute appendicitis with perforation, localized peritonitis, and gangrene, without abscess (principal); K66.0 Peritoneal adhesions (postprocedural) (postinfection); F17.200 Nicotine dependence, unspecified, uncomplicated
CPT/HCPCS: 44970; A9270; J0131; J0690; J1170; J3490; J7120

== ENCOUNTER 2019-05-31 10:06 | Emergency (ER) | payer OTHER ==
[2019-05-31 10:15] VITALS: BP 102/83
--- NOTE | 2019-05-31 11:05 | ED Physician Documentation ---
History of Present Illness - Stated complaint Stated Complaint: POST OP PAIN - Chief complaint Chief Complaint: Abd Pain - History obtained from History obtained from: Patient - Additonal information Additional information: Patient is a 23-year-old female with recent appendectomy and adhesion release 2 days ago. There was a miscommunication related to her oxycodone prescription and dosing and therefore she has ran out of oxycodone medication. Patient has follow-up scheduled for next week and physician is unable to refill medication before that time. Patient reports persistent discomfort, but denies nausea, vomiting, urinary changes, stool changes, fever or complications with wounds. No other improving or worsening factors noted. Review of Systems Constitutional: denies: Fever GI: reports: Abdominal Pain. denies: Nausea, Vomiting, Constipation, Diarrhea : denies: Dysuria PD PAST MEDICAL HISTORY - Past Medical History Cardiovascular: None Respiratory: None Neuro: None Endocrine/Autoimmune: None GI: None SULFUR BURNER: None : None HEENT: None Psych: None Musculoskeletal: None Derm: None - Past Surgical History Past Surgical History: Yes General: Appendectomy - Present Medications Home Medications: Ambulatory Orders Medication Instructions Recorded Confirmed Ibuprofen [Motrin] 800 mg PO Q8H PRN #30 tablet 05/02/19 05/31/19 Hydrocodone/Acetaminophen 1 each PO Q6H PRN #15 tablet 05/31/19 [Hydrocodon-Acetaminophen 5-325] Oxycodone HCl/Acetaminophen 1 tab PO PRN PRN 05/31/19 05/31/19 [Oxycodone-Acetaminophen 10-325] - Allergies Allergies/Adverse Reactions: Allergies Allergy/AdvReac Type Severity Reaction Status Date / Time No Known Drug Allergies Allergy Verified 05/31/19 10:15 - Social History Does the pt smoke?: Yes Smoking Status: Current every day smoker Does the pt drink ETOH?: Yes Does the pt have substance abuse?: No - Immunizations Immunizations are current?: Yes - POLST Patient has POLST: No PD ED PE NORMAL - Vitals Vital signs reviewed: Yes - General General: Alert and oriented X 3, No acute distress, Well developed/nourished, Other (Moving easily around the room, walking normally, Mountain Dew can at bedside) - HEENT HEENT: Atraumatic, Moist mucous membranes - Neck Neck: Supple, no meningeal sign - Respiratory Respiratory: No respiratory distress - Abdomen Abdomen: Soft, Non distended. No: Non tender (Extremely mild diffuse tenderness, surgical wounds closed dry and intact without surrounding signs of infection or other complication) - Derm Derm: Normal color, Warm and dry, No rash - Extremities Extremities: No deformity, No tenderness to palpate - Neuro Neuro: Alert and oriented X 3, No motor deficit, No sensory deficit - Psych Psych: Normal mood, Normal affect Results - Vitals Vitals: Vital Signs - 24 hr 05/31/19 10:10 Temperature 36.6 C Heart Rate 84 Respiratory 16 Rate Blood Pressure 102/83 H O2 Saturation 100 Oxygen O2 Source Room air PD MEDICAL DECISION MAKING - ED course Complexity details: reviewed old records, considered differential, d/w patient ED course: Patient presenting with persistent discomfort following surgery about 2 days ago for removal of appendix and adhesions. Patient was sent home on oxycodone's but there was a miscommunication regarding dosing and she no longer has medications available. Patient has follow-up with her surgeon next week and has contacted his office, but they are not able to fill prescription before that time.Patient does have Zofran available to her at home. No other complaints that would raise concerns for postsurgical infection or other complication except for expected pain. Physical exam is rather benign. Discussed use of hydrocodone and appropriate dosing for such, other supportive cares, return precautions, and follow-up. Otherwise feel that patient is safe to discharge home and patient is amenable to this plan. Departure - Departure Disposition: 01 Home, Self Care Clinical Impression: Abdominal pain Qualifiers: Abdominal location: generalized Qualified Code(s): R10.84 - Generalized abdominal pain Condition: Good Instructions: Abdominal Pain Follow-Up: Jignesh Thomas MD [Provider Admit Priv/Credential] - Within 3 Days Prescriptions: Hydrocodone/Acetaminophen [Hydrocodon-Acetaminophen 5-325] 1 each PO Q6H PRN #15 tablet PRN Reason: pain Comments: May use [place] as prescribed for pain relief. May also use in combination with ibuprofen with limited dosage. Do not combine with alcohol, driving, or Tylenol. If taking [place] regularly, recommend use of stool softener or laxative to avoid constipation. Please follow-up with [facility] as scheduled next week and return to ED sooner if experience worsening symptoms or have other concerns.
== END 2019-05-31 11:40 | disposition home or self-care (01) ==
LOC: ED 10:06
DX: R10.84 Generalized abdominal pain (principal); Z98.890 Other specified postprocedural states; Z90.49 Acquired absence of other specified parts of digestive tract; F17.200 Nicotine dependence, unspecified, uncomplicated
CPT/HCPCS: 99282; 99283

== ENCOUNTER 2019-06-14 11:27 | Emergency (ER) | payer OTHER ==
[2019-06-14 12:10] LABS: BILIRUBIN,URINE NEGATIVE (NEGATIVE); CLARITY,URINE CLEAR (CLEAR); GLUCOSE, URINE (UA) NEGATIVE (NEGATIVE); HCG UR QUAL POSITIVE; KETONES,URINE (UA) NEGATIVE (NEGATIVE); LEUKOCYTE ESTERASE, URINE NEGATIVE (NEGATIVE); NITRITE,URINE NEGATIVE (NEGATIVE); OCCULT BLOOD,URINE NEGATIVE (NEGATIVE); PROTEIN,URINE NEGATIVE (NEGATIVE); UROBILINOGEN,URINE 0.2 (NORMAL) E.U./dL (NORMAL)
[2019-06-14] MEDS ORDERED: IOVERSOL 320 100 ML VIAL IVP ONE (12:16)
[2019-06-14 12:22] LABS: BASOPHILS # (AUTO) 0.1 10^3/uL (0.0-0.1); BASOPHILS % (AUTO) 0.6 %; EOSINOPHILS # (AUTO) 0.3 10^3/uL (0.0-0.7); EOSINOPHILS % (AUTO) 4.2 %; HGB - HEMOGLOBIN 12.4 g/dL (12.0-16.0); LYMPHOCYTES # (AUTO) 2.5 10^3/uL (1.5-3.5); LYMPHOCYTES % (AUTO) 32.3 %; MEAN CORPUSCULAR HEMOGLOBIN 31.3 pg (27.0-31.0); MEAN CORPUSCULAR HGB CONC 32.6 g/dL (32.0-36.0); MEAN PLATELET VOLUME 8.3 fL (7.9-10.8); MONOCYTES # (AUTO) 0.5 10^3/uL (0.0-1.0); NEUTROPHILS # (AUTO) 4.4 10^3/uL (1.5-6.6); NEUTROPHILS % (AUTO) 56.6 %; PLT - PLATELET COUNT 374 10^3/uL (130-450); RED BLOOD COUNT 3.96 10^6/uL (4.20-5.40); WHITE BLOOD COUNT 7.8 x10^3/uL (4.8-10.8)
--- NOTE | 2019-06-14 12:24 | ED Physician Documentation ---
PD HPI ABD PAIN - Stated complaint Stated Complaint: ABD PX - Chief complaint Chief Complaint: Abd Pain - History obtained from History obtained from: Patient - History of Present Illness Timing - onset: Last night Timing - duration: Hours Timing - details: Abrupt onset, Still present Quality: Sharp, Pain Location: RLQ Radiation: Lower back Improved by: Laying still Worsened by: Moving, Position, Palpation Associated symptoms: Nausea, Vomiting Similar symptoms before: Diagnosis (appendicitis) Recently seen: Surgery - Additional information Additional information: 23-year-old female who is had a 2-month history of right lower quadrant abdominal pain has had her appendix out on 29 May and she had some improvement in her pain and symptoms. Last night she has spontaneous vomiting and this is followed by right lower quadrant abdominal pain again. The patient states the pain felt more like severe menstrual cramping and was not similar to what she had had previously. Review of Systems Constitutional: denies: Fever Eyes: denies: Decreased vision Ears: denies: Ear pain Nose: denies: Congestion Throat: denies: Sore throat Cardiac: denies: Chest pain / pressure, Palpitations Respiratory: denies: Dyspnea, Cough GI: reports: Abdominal Pain, Nausea, Vomiting : denies: Dysuria, Frequency Skin: denies: Rash Musculoskeletal: reports: Back pain. denies: Neck pain, Extremity pain Neurologic: denies: Generalized weakness, Focal weakness, Numbness PD PAST MEDICAL HISTORY - Past Medical History Past Medical History: No Cardiovascular: None Respiratory: None Neuro: None Endocrine/Autoimmune: None GI: None INSTRUCTIONAL SPECIALIST: None : None HEENT: None Psych: None Musculoskeletal: None Derm: None - Past Surgical History Past Surgical History: Yes General: Appendectomy - Present Medications Home Medications: Ambulatory Orders Medication Instructions Recorded Confirmed Ibuprofen [Motrin] 800 mg PO Q8H PRN #30 tablet 05/02/19 05/31/19 Ondansetron Odt [Zofran] 4 mg TL Q6H PRN #10 tablet 06/14/19 - Allergies Allergies/Adverse Reactions: Allergies Allergy/AdvReac Type Severity Reaction Status Date / Time No Known Drug Allergies Allergy Verified 06/14/19 11:33 - Social History Does the pt smoke?: Yes Smoking Status: Current every day smoker Does the pt drink ETOH?: Yes Does the pt have substance abuse?: No - Immunizations Immunizations are current?: Yes - POLST Patient has POLST: No PD ED PE NORMAL - Vitals Vital signs reviewed: Yes (normal ) - General General: Alert and oriented X 3, Well developed/nourished, Other (23 y/o female is in tears with pain ) - HEENT HEENT: Atraumatic, PERRL, EOMI - Neck Neck: Supple, no meningeal sign, No bony TTP - Cardiac Cardiac: RRR, No murmur - Respiratory Respiratory: No respiratory distress, Clear bilaterally - Abdomen Abdomen: Soft, Other (mild RLQ tenderness to palpation without gaurding. 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, No motor deficit, No sensory deficit, Normal speech Eye Opening: Spontaneous Motor: Obeys Commands Verbal: Oriented GCS Score: 15 - Psych Psych: Normal affect, Other (mood is painful ) Results - Vitals Vitals: Vital Signs - 24 hr 06/14/19 06/14/19 06/14/19 11:29 14:40 15:30 Temperature 36.8 C Heart Rate 92 76 68 Respiratory 18 12 66 H Rate Blood Pressure 113/73 93/56 L 91/64 O2 Saturation 99 98 97 06/14/19 16:21 Temperature Heart Rate 86 Respiratory 18 Rate Blood Pressure 106/68 O2 Saturation 99 Oxygen O2 Source Room air - Labs Labs: Laboratory Tests 06/14/19 06/14/19 06/14/19 11:58 11:58 12:03 WBC 7.8 RBC 3.96 L Hgb 12.4 Hct 38.0 MCV 96.0 MCH 31.3 H MCHC 32.6 RDW 12.0 Plt Count 374 MPV 8.3 Neut # (Auto) 4.4 Lymph # (Auto) 2.5 [place] # (Auto) 0.5 Eos # (Auto) 0.3 Baso # (Auto) 0.1 Absolute Nucleated RBC 0.00 Nucleated RBC % 0.0 Sodium Potassium Chloride Carbon Dioxide Anion Gap BUN Creatinine Estimated GFR (MDRD) Glucose Calcium Total Bilirubin AST ALT Alkaline Phosphatase Total Protein Albumin Globulin Albumin/Globulin Ratio Lipase HCG, Quant Urine Color YELLOW Urine Clarity CLEAR Urine pH 6.0 Ur Specific [place] 1.020 1.020 Urine Protein NEGATIVE Urine Glucose (UA) NEGATIVE Urine Ketones NEGATIVE Urine Occult Blood NEGATIVE Urine Nitrite NEGATIVE Urine Bilirubin NEGATIVE Urine Urobilinogen 0.2 (NORMAL) Ur Leukocyte Esterase NEGATIVE Ur Microscopic Review NOT INDICATED Urine Culture Comments NOT INDICATED Urine HCG, Qual POSITIVE 06/14/19 06/14/19 12:03 12:03 WBC RBC Hgb Hct MCV MCH MCHC RDW Plt Count MPV Neut # (Auto) Lymph # (Auto) [place] # (Auto) Eos # (Auto) Baso # (Auto) Absolute Nucleated RBC Nucleated RBC % Sodium 137 Potassium 3.1 L Chloride 102 Carbon Dioxide 26 Anion Gap 9.0 BUN 10 Creatinine 0.6 Estimated GFR (MDRD) 122 Glucose 88 Calcium 9.3 Total Bilirubin 0.8 AST 18 ALT 16 Alkaline Phosphatase 39 L Total Protein 7.3 Albumin 4.2 Globulin 3.1 Albumin/Globulin Ratio 1.4 Lipase 41 HCG, Quant 59762.00 Urine Color Urine Clarity Urine pH Ur Specific [place] Urine Protein Urine Glucose (UA) Urine Ketones Urine Occult Blood Urine Nitrite Urine Bilirubin Urine Urobilinogen Ur Leukocyte Esterase Ur Microscopic Review Urine Culture Comments Urine HCG, Qual - Rads (name of study) u/s pelvis Radiology: Prelim report reviewed (Impression: Early intrauterine gestational sac. No embryo identified.), EMP read indepedently, See rad report PD MEDICAL DECISION MAKING - ED course Complexity details: reviewed old records, reviewed results, re-evaluated patient, considered differential, d/w patient ED course: 23-year-old female with a recent history of chronic appendicitis which was operated on 2 weeks ago has developed spontaneous vomiting last night and severe right lower quadrant abdominal pain/cramping that persists this morning. My primary concern on initial evaluation of the patient was for some complication related to her surgery. She was administered saline and Dilaudid and Zofran with improvement in her pain and we had planned to do a contrast CT scan when her test came back positive. An ultrasound was obtained showing what appears to be a blighted ovum with a quantitative hCG of 11,500. The obstetrical physician was consulted in the case and asked that we consult the surgeon about weather a CT was needed. Dr. Adkins was consulted in the case and recommends a wait and see as the patients symptoms appear resolved and there is no free fluid on exam, normal WBC and a potential reason for the pain. The patient is amenable to follow up with Dr. Giem. When I discussed narcotic withdrawal as a possible cause of her symptoms she indicated that she had been experiencing periodic chills and sweats when she stopped narcotic medications over the past 2 months and a little diarrhea this morning but never the sever cramping pain that felt like a sever menstral period. She also this late in the visit indicated that she had tried to be intimate and this failed with pain as the symptom. Departure - Departure Disposition: Home, Self Care Clinical Impression: Blighted ovum Condition: Stable Instructions: ED Miscarriage Poss Follow-Up: Jignesh Thomas MD [Provider Admit Priv/Credential] - Prescriptions: Ondansetron Odt [Zofran] 4 mg TL Q6H PRN #10 tablet PRN Reason: Nausea / Vomiting Comments: Follow up with Dr. Thomas on Monday call the office to make and appointment. Forms: Activity restrictions
[2019-06-14] MEDS ORDERED: ONDANSETRON 4 MG/2 ML VIAL IVP STA (12:27)
[2019-06-14] MEDS ORDERED: HYDROmorphone 1 MG/ML CARPUJECT IVP STA (12:27)
[2019-06-14 12:43] LABS: ALBUMIN 4.2 g/dL (3.2-5.5); ALBUMIN/GLOBULIN RATIO 1.4 (1.0-2.2); BILIRUBIN,TOTAL 0.8 mg/dL (0.2-1.0); CALCIUM 9.3 mg/dL (8.5-10.3); CREATININE 0.6 mg/dL (0.4-1.0); TOTAL PROTEIN 7.3 g/dL (6.7-8.2)
--- NOTE | 2019-06-14 14:20 | Ultrasound Report ---
Reason: severe RLQ pain s/p appy Procedure Date: 06/14/2019 Accession Number: [id number] / [id number] Procedure: US - OB First Trimester CPT Code: FULL RESULT: EXAM: FIRST TRIMESTER OBSTETRIC ULTRASOUND (Less than 11 weeks) EXAM DATE: 06/14/2019 01:51 PM. CLINICAL HISTORY: Severe RLQ pain s/p appy. LMP: March 2019. COMPARISONS: PEL NON OB W/TV DOP 05/03/2019 8:07 PM ABDOMEN/PELVIS W/ 05/02/2019 7:40 PM. TECHNIQUE: Transabdominal and transvaginal ultrasound examination with static image documentation. ASSESSMENT: Gestational Sac: Single intrauterine. Mean gestational sac diameter: 11.1 mm Embryo: None identified. Cardiac activity: Not identified. Yolk sac: Not identified. Other: No perigestational fluid collection demonstrated. MATERNAL STRUCTURES: Uterus: Anteverted. Unremarkable. Cervix: Closed. Right Ovary/Adnexa: The ovary measures 3.5 x 2.2 x 3.6 cm, volume 14 cc. Unremarkable. Left Ovary/Adnexa: The ovary measures 5.0 x 2.2 x 2.9 cm, volume 16.2 cc. Probable corpus luteum measuring 2.0 x 1.3 x 1.6 cm. Free Fluid: None. Other: None. IMPRESSION: Early intrauterine gestational sac. No embryo identified. RADIA
[2019-06-14] MEDS ORDERED: KETOROLAC 30 MG/ML VIAL IVP STA (14:27)
[2019-06-14 16:22] VITALS: BP 106/68
== END 2019-06-14 16:30 | disposition home or self-care (01) ==
LOC: ED 11:27
DX: O02.0 Blighted ovum and nonhydatidiform mole (principal); F17.200 Nicotine dependence, unspecified, uncomplicated
CPT/HCPCS: 36415; 76801; 76817; 80053; 81003; 81025; 83690; 84702; 85025; 87040; 96374; 96375; 99284; J1170; 81001; 87086

== ENCOUNTER 2019-06-27 20:08 | Outpatient (CLI) | payer OTHER | END 2019-06-27 20:09 | disposition home or self-care (01) | LOC: DI 20:08 | PROVIDERS: ATTEND Obstetrics & Gynecology | DX: Z53.9 Procedure and treatment not carried out, unspecified reason (principal) ==

== ENCOUNTER 2019-07-04 19:06 | Outpatient (CLI) | payer OTHER ==
--- NOTE | 2019-07-04 23:33 | Ultrasound Report ---
Reason: TEST POSITIVE Procedure Date: 07/04/2019 Accession Number: [id number] / [id number] Procedure: US - OB First Trimester CPT Code: FULL RESULT: EXAM: FIRST TRIMESTER OBSTETRIC ULTRASOUND (Less than 11 weeks) EXAM DATE: 07/04/2019 07:23 PM. CLINICAL HISTORY: TEST POSITIVE. LMP: Unknown. COMPARISONS: OB FIRST TRIMESTER 06/14/2019 1:06 PM. TECHNIQUE: Transabdominal and transvaginal ultrasound examination with static image documentation. ASSESSMENT: Gestational Sac: Single intrauterine. Mean gestational sac diameter: 26 mm = 7 weeks 4 days. Embryo: None visualized. Cardiac activity: None visualized. Yolk sac: None visualized. Amniotic fluid: Not accurately assessed at this gestational age. Early placenta: Not visible at this gestational age. Other: 2.0 x 1.5 cm perigestational hemorrhage.. MATERNAL STRUCTURES: Uterus: Anteverted. Unremarkable. Cervix: Closed. Right Ovary/Adnexa: The ovary measures 3.6 x 2.5 x 2.0 cm, volume 9 cc. Unremarkable. Left Ovary/Adnexa: The ovary measures 3.2 x 2.9 x 2.6 cm, volume 12 cc. 2.3 cm corpus luteum. Free Fluid: None. Other: None. IMPRESSION: Gestational sac within the endometrial canal, with a mean sac diameter of 26 mm, with no embryo or yolk sac visualized, diagnostic of failure. Small perigestational hemorrhage. RADIA
== END 2019-07-04 19:07 | disposition home or self-care (01) ==
LOC: DI 19:06
PROVIDERS: ATTEND Obstetrics & Gynecology
DX: Z32.01 Encounter for pregnancy test, result positive (principal)
CPT/HCPCS: 76801; 76817

== ENCOUNTER 2019-07-11 10:43 | Outpatient (CLI) | payer OTHER | END 2019-07-11 10:44 | disposition home or self-care (01) | LOC: LAB 10:43 | PROVIDERS: ATTEND Obstetrics & Gynecology | DX: Z34.90 Encounter for supervision of normal pregnancy, unspecified, unspecified trimester (principal) | CPT/HCPCS: 36415; 84702 ==

== ENCOUNTER 2019-07-17 08:00 | Outpatient (CLI) | payer OTHER ==
[2019-07-17 21:05] LABS: CANDIDA GROUP DNA NEGATIVE (NEGATIVE); CANDIDA KRUSEI DNA NEGATIVE (NEGATIVE); TRICHOMONAS VAGINALIS DNA NEGATIVE (NEGATIVE)
== END 2019-07-17 23:59 | disposition home or self-care (01) ==
LOC: LAB.R 08:00
PROVIDERS: ATTEND Obstetrics & Gynecology
DX: N89.8 Other specified noninflammatory disorders of vagina (principal)
CPT/HCPCS: 87661; 87801

== ENCOUNTER 2019-07-20 10:43 | Emergency (ER) | payer OTHER ==
[2019-07-20] MEDS ORDERED: SODIUM CHLORIDE 0.9% 1,000 ML IV ONE (11:14)
--- NOTE | 2019-07-20 11:19 | ED Physician Documentation ---
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 Despite her quantitative hCG G going up to 35,000 the patient never had a fetus. She was administered Misaprost. 3 days ago and she began to bleed heavily and had a lot of cramping. She had some improvement in her bleeding the following day and yesterday her bleeding became much worse. She was soaking her pads and soaking through her son's pull-ups. She is thirsty, lightheaded and dizzy and could not make it through the day at work yesterday. She has pelvic pain radiating to her back and she is vomiting. Review of Systems Constitutional: denies: Fever Eyes: denies: Decreased vision Ears: denies: Ear pain Nose: denies: Rhinorrhea / runny nose, Congestion Throat: denies: Sore throat Cardiac: denies: Chest pain / pressure, Palpitations Respiratory: denies: Dyspnea, Cough GI: reports: Abdominal Pain, Nausea, Vomiting : denies: Dysuria, Frequency Skin: denies: Rash Musculoskeletal: reports: Back pain. denies: Neck pain, Extremity pain Neurologic: reports: Generalized weakness. denies: Focal weakness, Numbness PD PAST MEDICAL HISTORY - Past Medical History Cardiovascular: None Respiratory: None Neuro: None Endocrine/Autoimmune: None GI: None OPEN HEARTH HELPER: None : None HEENT: None Psych: None Musculoskeletal: None Derm: None - Past Surgical History Past Surgical History: Yes General: Appendectomy - Present Medications Home Medications: Ambulatory Orders Medication Instructions Recorded Confirmed Ibuprofen [Motrin] 800 mg PO Q8H PRN #30 tablet 05/02/19 05/31/19 Ondansetron Odt [Zofran] 4 mg TL Q6H PRN #10 tablet 06/14/19 Oxycodone HCl/Acetaminophen 1 - 2 each PO Q6H PRN #14 tablet 07/20/19 [Percocet 5-325 mg Tablet] Sulfamethoxazole/Trimethoprim 1 each PO BID #14 tablet 07/20/19 [Sulfamethoxazole-Tmp Ss Tablet] - Allergies Allergies/Adverse Reactions: Allergies Allergy/AdvReac Type Severity Reaction Status Date / Time No Known Drug Allergies Allergy Verified 07/20/19 10:48 - Social History Does the pt smoke?: Yes Smoking Status: Current every day smoker Does the pt drink ETOH?: Yes Does the pt have substance abuse?: No - Immunizations Immunizations are current?: Yes - POLST Patient has POLST: No PD ED PE NORMAL - Vitals Vital signs reviewed: Yes (normal ) - General General: Alert and oriented X 3, No acute distress, Well developed/nourished - HEENT HEENT: Atraumatic, PERRL, EOMI, Other (dry mucous membranes ) - Neck Neck: Supple, no meningeal sign, No bony TTP - Cardiac Cardiac: No murmur, Other (tachy to 110) - Respiratory Respiratory: No respiratory distress, Clear bilaterally - Abdomen Abdomen: Soft, Other (mild suprapubic tenderness without gaurding or rebound. 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, No motor deficit, No sensory deficit, Normal speech Eye Opening: Spontaneous Motor: Obeys Commands Verbal: Oriented GCS Score: 15 - Psych Psych: Other (mood is defeated and the affect is flat ) Results - Vitals Vitals: Vital Signs - 24 hr 07/20/19 07/20/19 07/20/19 10:48 11:24 11:46 Temperature 36.7 C Heart Rate 94 83 73 Respiratory 15 18 18 Rate Blood Pressure 111/61 94/58 L 88/53 L O2 Saturation 100 96 98 07/20/19 07/20/19 12:37 12:59 Temperature Heart Rate 71 70 Respiratory 18 18 Rate Blood Pressure 83/57 L 84/51 L O2 Saturation 100 100 Oxygen O2 Source Room air - Labs Labs: Laboratory Tests 09/07/20/19 07/20/19 11:20 11:20 11:26 WBC 5.4 RBC 3.46 L Hgb 11.2 L Hct 33.2 L MCV 96.0 MCH 32.4 H MCHC 33.7 RDW 11.6 L Plt Count 265 MPV 8.0 Neut # (Auto) 3.5 Lymph # (Auto) 1.4 L [place] # (Auto) 0.3 Eos # (Auto) 0.2 Baso # (Auto) 0.1 Absolute Nucleated RBC 0.00 Nucleated RBC % 0.0 Sodium 137 Potassium 3.3 L Chloride 97 L Carbon Dioxide 32 Anion Gap 8.0 BUN 11 Creatinine 0.5 Estimated GFR (MDRD) 149 Glucose 99 Calcium 9.1 Total Bilirubin 0.5 AST 19 ALT 14 Alkaline Phosphatase 37 L Total Protein 7.1 Albumin 4.0 Globulin 3.1 Albumin/Globulin Ratio 1.3 Lipase 21 L Urine Color BROWN Urine Clarity SL. CLOUDY Urine pH Ur Specific [place] Urine Protein Urine Glucose (UA) NEGATIVE Urine Ketones Urine Occult Blood LARGE H Urine Nitrite POSITIVE H Urine Bilirubin NEGATIVE Urine Urobilinogen 0.2 (NORMAL) Ur Leukocyte Esterase TRACE H Urine RBC TNTC H Urine WBC >25 H Ur Squamous Epith Cells MOD Squamous H Urine Bacteria Moderate H Ur Microscopic Review INDICATED Urine Culture Comments NOT INDICATED Procedures - IVC sono (time) 1110 Bedside IVC sono: IVC measures (cm) (1.12), IVC collapsed c insp (cm) (complete), Dehydration (est 1-2 liter deficit) PD MEDICAL DECISION MAKING - ED course Complexity details: reviewed old records, reviewed results, re-evaluated patient, considered differential, d/w patient ED course: 24-year-old female with a recent miscarriage has significant bleeding which is now slowed she was some volume depleted and we have administered saline as well as some pain control. The patient also had nausea and vomiting and appears to have urinary tract infection on evaluation of the urine. She is given Rocephin intravenously as well. We will place her on some antibiotics and administer some pain control as needed. Departure - Departure Disposition: 01 Home, Self Care Clinical Impression: Dysmenorrhea Urinary tract infection Qualifiers: Urinary tract infection type: acute cystitis Hematuria presence: with hematuria Qualified Code(s): N30.01 - Acute cystitis with hematuria Condition: Stable Instructions: ED Bleed Irregular Vaginal, ED UTI Cystitis Female Follow-Up: [facility] [Provider Group] Prescriptions: Oxycodone HCl/Acetaminophen [Percocet 5-325 mg Tablet] 1 - 2 each PO Q6H PRN #14 tablet PRN Reason: pain Sulfamethoxazole/Trimethoprim [Sulfamethoxazole-Tmp Ss Tablet] 1 each PO BID #14 tablet Forms: Activity restrictions
[2019-07-20 11:25] LABS: BASOPHILS # (AUTO) 0.1 10^3/uL (0.0-0.1); BASOPHILS % (AUTO) 0.9 %; EOSINOPHILS # (AUTO) 0.2 10^3/uL (0.0-0.7); EOSINOPHILS % (AUTO) 4.1 %; HGB - HEMOGLOBIN 11.2 g/dL (12.0-16.0); LYMPHOCYTES # (AUTO) 1.4 10^3/uL (1.5-3.5); LYMPHOCYTES % (AUTO) 25.2 %; MEAN CORPUSCULAR HEMOGLOBIN 32.4 pg (27.0-31.0); MEAN CORPUSCULAR HGB CONC 33.7 g/dL (32.0-36.0); MONOCYTES # (AUTO) 0.3 10^3/uL (0.0-1.0); MONOCYTES % (AUTO) 5.7 %; NEUTROPHILS # (AUTO) 3.5 10^3/uL (1.5-6.6); NEUTROPHILS % (AUTO) 63.9 %; PLT - PLATELET COUNT 265 10^3/uL (130-450); RED BLOOD COUNT 3.46 10^6/uL (4.20-5.40); RED CELL DISTRIBUTION WIDTH 11.6 % (12.0-15.0); WHITE BLOOD COUNT 5.4 x10^3/uL (4.8-10.8)
[2019-07-20 11:30] LABS: GLUCOSE, URINE (UA) NEGATIVE (NEGATIVE); LEUKOCYTE ESTERASE, URINE TRACE (NEGATIVE); NITRITE,URINE POSITIVE (NEGATIVE); OCCULT BLOOD,URINE LARGE (NEGATIVE); UROBILINOGEN,URINE 0.2 (NORMAL) E.U./dL (NORMAL)
[2019-07-20 11:37] LABS: ALBUMIN/GLOBULIN RATIO 1.3 (1.0-2.2); BILIRUBIN,TOTAL 0.5 mg/dL (0.2-1.0); CALCIUM 9.1 mg/dL (8.5-10.3); CREATININE 0.5 mg/dL (0.4-1.0); TOTAL PROTEIN 7.1 g/dL (6.7-8.2)
[2019-07-20 11:38] LABS: CLARITY,URINE SL. CLOUDY (CLEAR)
[2019-07-20 11:39] LABS: BACTERIA,URINE Moderate /HPF (None Seen); BILIRUBIN,URINE NEGATIVE (NEGATIVE); ICTOTEST,URINE NEGATIVE; RBC,URINE TNTC /HPF (0-5); SQUAMOUS EPITHELIAL CELL,UR MOD Squamous (<= Few)
[2019-07-20] MEDS ORDERED: ONDANSETRON 4 MG/2 ML VIAL IVP STA (11:40)
[2019-07-20] MEDS ORDERED: KETOROLAC 30 MG/ML VIAL IVP STA (11:40)
[2019-07-20] MEDS ORDERED: cefTRIAXone 1 GM in SODIUM CHLORIDE 0.9% MINIBAG 100 ML IV STA (11:41)
[2019-07-20] MEDS ORDERED: HYDROmorphone 1 MG/ML CARPUJECT IVP STA (12:14)
[2019-07-20 13:39] VITALS: BP 87/64
== END 2019-07-20 13:39 | disposition home or self-care (01) ==
LOC: ED 10:43
DX: O02.0 Blighted ovum and nonhydatidiform mole (principal); O08.1 Delayed or excessive hemorrhage following ectopic and molar pregnancy; E86.9 Volume depletion, unspecified; N39.0 Urinary tract infection, site not specified; F17.200 Nicotine dependence, unspecified, uncomplicated
CPT/HCPCS: 36415; 80053; 81001; 83690; 85025; 96365; 96375; 99283; 99284; J1170; 81003; 87086

== ENCOUNTER 2019-07-22 08:00 | Outpatient (CLI) | payer OTHER | END 2019-07-22 23:59 | disposition home or self-care (01) | LOC: LAB.R 08:00 | PROVIDERS: ATTEND Obstetrics & Gynecology | DX: L98.9 Disorder of the skin and subcutaneous tissue, unspecified (principal) | CPT/HCPCS: 81599; 87070; 87205; 87255 ==

== ENCOUNTER 2019-07-22 14:56 | Outpatient (CLI) | payer OTHER ==
[2019-07-24 12:36] LABS: HSV 1 IGG TYPE SPECIFIC AB <0.90 index; HSV 2 IGG TYPE SPECIFIC AB <0.90 index
== END 2019-07-22 14:57 | disposition home or self-care (01) ==
LOC: LAB 14:56
PROVIDERS: ATTEND Obstetrics & Gynecology
DX: L98.9 Disorder of the skin and subcutaneous tissue, unspecified (principal)
CPT/HCPCS: 36415; 81599; 86695; 86696

== ENCOUNTER 2019-08-06 08:00 | Outpatient (CLI) | payer OTHER ==
[2019-08-07 11:43] LABS: TRICHOMONAS VAGINALIS DNA UNRESOLVED (NEGATIVE)
== END 2019-08-06 23:59 | disposition home or self-care (01) ==
LOC: LAB.R 08:00
PROVIDERS: ATTEND Obstetrics & Gynecology
DX: O02.0 Blighted ovum and nonhydatidiform mole (principal)
CPT/HCPCS: 87491; 87591; 87661

== ENCOUNTER 2019-08-06 11:47 | Outpatient (CLI) | payer OTHER ==
[2019-08-06 12:26] LABS: BASOPHILS # (AUTO) 0.1 10^3/uL (0.0-0.1); BASOPHILS % (AUTO) 1.4 %; EOSINOPHILS # (AUTO) 0.7 10^3/uL (0.0-0.7); EOSINOPHILS % (AUTO) 11.2 %; HGB - HEMOGLOBIN 11.4 g/dL (12.0-16.0); LYMPHOCYTES # (AUTO) 2.4 10^3/uL (1.5-3.5); LYMPHOCYTES % (AUTO) 40.7 %; MEAN CORPUSCULAR HEMOGLOBIN 31.8 pg (27.0-31.0); MEAN CORPUSCULAR HGB CONC 31.8 g/dL (32.0-36.0); MEAN CORPUSCULAR VOLUME 100.3 fL (81.0-99.0); MEAN PLATELET VOLUME 8.7 fL (7.9-10.8); MONOCYTES # (AUTO) 0.3 10^3/uL (0.0-1.0); MONOCYTES % (AUTO) 4.7 %; NEUTROPHILS # (AUTO) 2.5 10^3/uL (1.5-6.6); NEUTROPHILS % (AUTO) 41.5 %; PLT - PLATELET COUNT 299 10^3/uL (130-450); RED BLOOD COUNT 3.58 10^6/uL (4.20-5.40); RED CELL DISTRIBUTION WIDTH 11.9 % (12.0-15.0); WHITE BLOOD COUNT 5.9 x10^3/uL (4.8-10.8)
== END 2019-08-06 11:48 | disposition home or self-care (01) ==
LOC: LAB 11:47
PROVIDERS: ATTEND Obstetrics & Gynecology
DX: O02.0 Blighted ovum and nonhydatidiform mole (principal); O02.1 Missed abortion
CPT/HCPCS: 36415; 84702; 85025; 85651; 87491; 87591; 87661

== ENCOUNTER 2019-08-13 07:00 | Outpatient (CLI) | payer OTHER ==
[2019-08-13 22:51] LABS: TRICHOMONAS VAGINALIS DNA NEGATIVE (NEGATIVE)
== END 2019-08-13 23:59 | disposition home or self-care (01) ==
LOC: LAB.R 07:00
PROVIDERS: ATTEND Obstetrics & Gynecology
DX: N89.8 Other specified noninflammatory disorders of vagina (principal)
CPT/HCPCS: 87491; 87591; 87661

== ENCOUNTER 2019-08-13 12:17 | Outpatient (CLI) | payer OTHER | END 2019-08-13 12:18 | disposition home or self-care (01) | LOC: LAB 12:17 | PROVIDERS: ATTEND Obstetrics & Gynecology | DX: N64.52 Nipple discharge (principal); O03.9 Complete or unspecified spontaneous abortion without complication; N89.8 Other specified noninflammatory disorders of vagina | CPT/HCPCS: 36415; 84146; 84702; 87491; 87591; 87661 ==

== ENCOUNTER 2019-08-27 08:00 | Outpatient (CLI) | payer OTHER ==
[2019-08-27 17:27] LABS: MUDS CUTOFF CONCENTRATIONS CUTOFF CONC BELOW:
[2019-08-27 17:46] LABS: AMPHETAMINE SCREEN,URINE NEGATIVE (NEGATIVE); BENZODIAZEPINES SCREEN, URINE NEGATIVE (NEGATIVE); COCAINE SCREEN URINE NEGATIVE (NEGATIVE); METHADONE SCREEN, URINE NEGATIVE (NEGATIVE); METHAMPHETAMINES SCREEN, URINE NEGATIVE (NEGATIVE); OPIATE SCREEN, URINE NEGATIVE (NEGATIVE); OXYCODONE SCREEN, URINE NEGATIVE (NEGATIVE); PROPOXYPHENE SCREEN, URINE NEGATIVE (NEGATIVE); TRICYCLIC ANTIDEPRESSANT,URINE NEGATIVE (NEGATIVE)
== END 2019-08-27 08:01 | disposition home or self-care (01) ==
LOC: LAB.R 08:00
PROVIDERS: ATTEND Obstetrics & Gynecology
DX: R10.2 Pelvic and perineal pain (principal)
CPT/HCPCS: 80306

== ENCOUNTER 2019-08-29 19:13 | Outpatient (CLI) | payer OTHER ==
--- NOTE | 2019-08-30 07:28 | Ultrasound Report ---
Reason: BLIGHTED OVUM Procedure Date: 08/29/2019 Accession Number: [id number] / [id number] Procedure: US - Pelvic w/Transvaginal CPT Code: Final Report FULL RESULT: EXAM: PELVIC ULTRASOUND EXAM DATE: 08/29/2019 08:04 PM. CLINICAL HISTORY: BLIGHTED OVUM. COMPARISON: PEL NON OB W/TV DOP 05/03/2019 8:07 PM. TECHNIQUE: Realtime transabdominal pelvic scan performed to identify the uterus and adnexa and as an overview of other pelvic structures, followed by transvaginal scan to provide greater detail of the uterus and adnexa, with static image documentation. FINDINGS: Uterus: 7.7 x 4.1 x 5.9 cm, volume 97 cc. Anteverted position. Normal overall size and echotexture. Masses: None. Endometrium: 6 mm. Normal. Cervix: Unremarkable. Right Ovary: 4.4 x 1.6 x 2.4 cm, volume 9 cc. The ovary is upper limits of normal in size and demonstrates numerous small peripheral follicles. Normal blood flow. Left Ovary: 3.4 x 2.1 x 3.9 cm, volume 14 cc. The ovary is upper limits of normal size and demonstrates numerous small peripheral follicles. Normal blood flow. Free Fluid: None. Other: None. IMPRESSION: Mildly prominent ovaries bilaterally numerous small follicles in a pattern which could represent polycystic ovarian syndrome in the correct setting. RADIA
== END 2019-08-29 19:14 | disposition home or self-care (01) ==
LOC: DI 19:13
PROVIDERS: ATTEND Obstetrics & Gynecology
DX: O02.0 Blighted ovum and nonhydatidiform mole (principal)
CPT/HCPCS: 76830; 76856

== ENCOUNTER 2019-09-05 15:42 | Emergency (ER) | payer OTHER ==
[2019-09-05 16:07] LABS: BASOPHILS # (AUTO) 0.1 10^3/uL (0.0-0.1); BASOPHILS % (AUTO) 0.8 %; EOSINOPHILS # (AUTO) 0.7 10^3/uL (0.0-0.7); EOSINOPHILS % (AUTO) 8.1 %; HGB - HEMOGLOBIN 12.7 g/dL (12.0-16.0); LYMPHOCYTES # (AUTO) 3.3 10^3/uL (1.5-3.5); LYMPHOCYTES % (AUTO) 39.9 %; MEAN CORPUSCULAR HEMOGLOBIN 31.7 pg (27.0-31.0); MEAN CORPUSCULAR HGB CONC 31.6 g/dL (32.0-36.0); MEAN CORPUSCULAR VOLUME 100.2 fL (81.0-99.0); MEAN PLATELET VOLUME 8.7 fL (7.9-10.8); MONOCYTES # (AUTO) 0.5 10^3/uL (0.0-1.0); MONOCYTES % (AUTO) 6.2 %; NEUTROPHILS # (AUTO) 3.7 10^3/uL (1.5-6.6); NEUTROPHILS % (AUTO) 44.6 %; PLT - PLATELET COUNT 257 10^3/uL (130-450); RED BLOOD COUNT 4.01 10^6/uL (4.20-5.40); WHITE BLOOD COUNT 8.3 x10^3/uL (4.8-10.8)
[2019-09-05 16:12] LABS: BILIRUBIN,URINE NEGATIVE (NEGATIVE); GLUCOSE, URINE (UA) NEGATIVE (NEGATIVE); KETONES,URINE (UA) TRACE mg/dL (NEGATIVE); LEUKOCYTE ESTERASE, URINE NEGATIVE (NEGATIVE); NITRITE,URINE NEGATIVE (NEGATIVE); OCCULT BLOOD,URINE NEGATIVE (NEGATIVE); PROTEIN,URINE NEGATIVE (NEGATIVE); UROBILINOGEN,URINE 0.2 (NORMAL) E.U./dL (NORMAL)
[2019-09-05 16:13] LABS: CLARITY,URINE CLEAR (CLEAR); HCG UR QUAL NEGATIVE
[2019-09-05 16:18] LABS: ALBUMIN 3.9 g/dL (3.2-5.5); ALBUMIN/GLOBULIN RATIO 1.3 (1.0-2.2); BILIRUBIN,TOTAL 0.2 mg/dL (0.2-1.0); CALCIUM 9.1 mg/dL (8.5-10.3); CREATININE 0.7 mg/dL (0.4-1.0); TOTAL PROTEIN 6.9 g/dL (6.7-8.2)
--- NOTE | 2019-09-05 17:20 | ED Physician Documentation ---
PD HPI FEMALE - Stated complaint Stated Complaint: ABD PX, N/V - Chief complaint Chief Complaint: Abd Pain - History obtained from History obtained from: Patient - History of Present Illness Timing - onset: Chronic Timing - duration: Weeks (states it was worse today) Timing - details: Gradual onset, Constant, Other Severity Comments: moderate pain in the pelvic area similar to pain she gets with ovarian cyst Associated symptoms: Other (denies vaginal bleeding, vaginal discharge, dysuria, urinary frequency, vomiting. reports nausea. no fever, no vaginal pain.) Contributing factors: Other (she had a medical a month ago and has also been found to have multiple ovarian cysts on ultrasound and is scheduled for a diagnostic laparoscopy next week.) Recently seen: Clinic - Treatment prior to arrival Treatment prior to arrival: ibuprofen without significant relief - Additional information Additional information: Pt reports she has chronic pelvic pain especially since receiving a medical a month ago. She has followed up with her [facility] regarding her ongoing pain and an US performed last week showed signs of PCOS. SHe states she came in today because she wasn't sure if her pain today is due to her cysts. Review of Systems Ten Systems: 10 systems reviewed and negative Constitutional: reports: Reviewed and negative Cardiac: reports: Reviewed and negative Respiratory: reports: Reviewed and negative GI: reports: Abdominal Pain, Nausea : reports: Reviewed and negative Skin: reports: Reviewed and negative Neurologic: reports: Reviewed and negative Endocrine: reports: Reviewed and negative Immunocompromised: reports: Reviewed and negative PD PAST MEDICAL HISTORY - Past Medical History Past Medical History: Yes Cardiovascular: None Respiratory: None Neuro: None Endocrine/Autoimmune: None GI: None [facility]: Ovarian cysts : None HEENT: None Psych: None Musculoskeletal: None Derm: None - Past Surgical History Past Surgical History: Yes General: Appendectomy - Present Medications Home Medications: Ambulatory Orders Medication Instructions Recorded Confirmed Ibuprofen [Motrin] 800 mg PO Q8H PRN #30 tablet 05/02/19 05/31/19 Ondansetron Odt [Zofran] 4 mg TL Q6H PRN #10 tablet 06/14/19 Oxycodone HCl/Acetaminophen 1 - 2 each PO Q6H PRN #14 tablet 07/20/19 [Percocet 5-325 mg Tablet] Sulfamethoxazole/Trimethoprim 1 each PO BID #14 tablet 07/20/19 [Sulfamethoxazole-Tmp Ss Tablet] Ondansetron Odt [Zofran] 4 mg TL Q6H PRN #10 tablet 09/05/19 Tramadol HCl 50 mg PO Q6HR PRN #20 tablet 09/05/19 - Allergies Allergies/Adverse Reactions: Allergies Allergy/AdvReac Type Severity Reaction Status Date / Time No Known Drug Allergies Allergy Verified 09/05/19 15:54 - Social History Does the pt smoke?: Yes Smoking Status: Current every day smoker Does the pt drink ETOH?: Yes Does the pt have substance abuse?: No - Immunizations Immunizations are current?: Yes - POLST Patient has POLST: No PD ED PE NORMAL - Vitals Vital signs reviewed: Yes - General General: Alert and oriented X 3, No acute distress, Well developed/nourished - HEENT HEENT: Atraumatic, Pharynx benign - Neck Neck: Supple, no meningeal sign - Cardiac Cardiac: RRR - Respiratory Respiratory: No respiratory distress - Abdomen Abdomen: Soft, Non tender, Non distended - Female Female : School Physical Therapist present (patient's partner) - Rectal Rectal: Deferred - Derm Derm: Normal color, Warm and dry, No rash - Extremities Extremities: No deformity, No edema - Neuro Neuro: Alert and oriented X 3 Eye Opening: Spontaneous Motor: Obeys Commands Verbal: Oriented GCS Score: 15 - Psych Psych: Normal mood, Normal affect PD ED PE EXPANDED - Female Female : Normal external, Other (no bleeding, no discharged, moderate CMT, mild diffuse pelvic tenderness, not lateralizing) Results - Vitals Vitals: Vital Signs - 24 hr 09/05/19 09/05/19 15:50 17:33 Temperature 36.6 C 36.2 C L Heart Rate 81 82 Respiratory 18 12 Rate Blood Pressure 107/81 H 112/71 O2 Saturation 99 100 Oxygen O2 Source Room air - Labs Labs: Laboratory Tests 09/05/19 09/05/19 09/05/19 15:37 16:02 16:02 WBC 8.3 RBC 4.01 L Hgb 12.7 Hct 40.2 MCV 100.2 H MCH 31.7 H MCHC 31.6 L RDW 12.0 Plt Count 257 MPV 8.7 Neut # (Auto) 3.7 Lymph # (Auto) 3.3 [place] # (Auto) 0.5 Eos # (Auto) 0.7 Baso # (Auto) 0.1 Absolute Nucleated RBC 0.00 Nucleated RBC % 0.0 Sodium 138 Potassium 3.1 L Chloride 102 Carbon Dioxide 29 Anion Gap 7.0 BUN 11 Creatinine 0.7 Estimated GFR (MDRD) 101 Glucose 98 Calcium 9.1 Total Bilirubin 0.2 AST 19 ALT 14 Alkaline Phosphatase 28 L Total Protein 6.9 Albumin 3.9 Globulin 3.0 Albumin/Globulin Ratio 1.3 Lipase 36 Urine Color YELLOW Urine Clarity CLEAR Urine pH 6.0 Ur Specific [place] 1.025 Urine Protein NEGATIVE Urine Glucose (UA) NEGATIVE Urine Ketones TRACE Urine Occult Blood NEGATIVE Urine Nitrite NEGATIVE Urine Bilirubin NEGATIVE Urine Urobilinogen 0.2 (NORMAL) Ur Leukocyte Esterase NEGATIVE Ur Microscopic Review NOT INDICATED Urine Culture Comments NOT INDICATED Urine HCG, Qual NEGATIVE PD MEDICAL DECISION MAKING - ED course Complexity details: reviewed old records, reviewed results, re-evaluated patient, considered differential, d/w patient ED course: ddx- chronic pelvic pain, PCOS, ovarian cysts, ovarian torsion, PID 24 y/o F with hx and exam as documented. She is well appearing, despite note from nursing she denies any vomiting but did feel nauseous today. She stats her pain is bilateral and suprapubic and similar to prior episodes of pains he has had. Her abdomen is benign, nontender, she was diffusely tender on bimanual exam but has no discharge to suggest PID. Her pain is not lateralizing to suggest torsion, she appears very comfortable here. I think this is likely her ongoing pain from cysts, potentially causing bloating from ovarian cysts and potentially PCOS. Pt was given analgesics here and is stable for outpt f/u with her Obgyn this week for a repeat eval and to undergo diagnostic laparoscopy. Departure - Departure Disposition: 01 Home, Self Care Clinical Impression: Pelvic pain Ovarian cyst Qualifiers: Laterality: bilateral Qualified Code(s): N83.201 - Unspecified ovarian cyst, right side Condition: Stable Record reviewed to determine appropriate education?: Yes Instructions: Cysts Ovarian Follow-Up: your, doctor [Other] - As Needed Prescriptions: Tramadol HCl 50 mg PO Q6HR PRN #20 tablet PRN Reason: Pain Ondansetron Odt [Zofran] 4 mg TL Q6H PRN #10 tablet PRN Reason: Nausea / Vomiting Comments: Your pelvic pain is consistent with pain due to your ovarian cysts. You do not appear to be having clinical symptoms of ovarian torsion today. Your labs are normal and you do not have a UTI. You can try taking ibuprofen for pain but if pain is severe take tramadol instead. You can use zofran as needed for nausea. If your pain becomes severe, one sided with vomiting you should return to the ED. Otherwise follow up with your regular doctor. Forms: Activity restrictions Discharge Date/Time: 09/05/19 17:33
[2019-09-05 17:33] VITALS: BP 112/71
== END 2019-09-05 17:33 | disposition home or self-care (01) ==
LOC: ED 15:42
DX: N83.201 Unspecified ovarian cyst, right side (principal); N83.202 Unspecified ovarian cyst, left side; R10.2 Pelvic and perineal pain; R11.0 Nausea; F17.200 Nicotine dependence, unspecified, uncomplicated
CPT/HCPCS: 36415; 80053; 81001; 81003; 81025; 83690; 85025; 87086; 99283; 99284

== ENCOUNTER 2019-09-10 16:43 | Outpatient (CLI) | payer OTHER ==
[2019-09-10 17:18] LABS: HCG UR QUAL NEGATIVE
[2019-09-10 17:19] LABS: CALCIUM 9.3 mg/dL (8.5-10.3); CREATININE 0.6 mg/dL (0.4-1.0)
== END 2019-09-10 16:44 | disposition home or self-care (01) ==
LOC: LAB 16:43
PROVIDERS: ATTEND Obstetrics & Gynecology
DX: Z01.812 Encounter for preprocedural laboratory examination (principal); R10.2 Pelvic and perineal pain
CPT/HCPCS: 36415; 80048; 81025; 86850; 86900; 86901

== ENCOUNTER 2019-09-11 10:13 | Day surgery (SDC) | payer OTHER ==
[~2019-09-11 10:13] MED LIST: CEFAZOLIN SODIUM IV ONE; NACL IV ONE
[2019-09-11] MEDS ORDERED: PROPOFOL 200 MG/20 ML VIAL IVP ONE (10:14)
[2019-09-11] MEDS ORDERED: ROCURONIUM 50 MG/5 ML VIAL IVP ONE (10:14)
[2019-09-11] MEDS ORDERED: DEXAMETHASONE 4 MG/ML VIAL IVP ONE (10:14)
[2019-09-11] MEDS ORDERED: NEOSTIGMINE 1 MG/1 ML 10 ML MDV IVP ONE (10:14)
[2019-09-11] MEDS ORDERED: MIDAZOLAM 2 MG/2 ML VIAL IVP ONE (10:14)
[2019-09-11] MEDS ORDERED: LACTATED RINGERS 1,000 ML IV ONE ×2 (10:21→13:25)
[2019-09-11] MEDS ORDERED: METHYLENE BLUE 0.5% 50 MG/10 ML AMPULE ONE (10:28)
[2019-09-11] MEDS ORDERED: BUPIVACAINE 0.5% PF 30 ML VIAL ONE (10:28)
--- NOTE | 2019-09-11 10:28 | ANESTHESIA ---
Pre-Anesthesia VS, & Labs - Diagnosis chronic pelvic pain - Procedure diagnostic laparoscopy Vital Signs: 94/64, 71, 16, 37, 100% Height 5 ft 1 in Weight (kg) 59 kg Body Mass Index 24.5 - NPO >8 hours - Is Patient ?: No Home Medications and Allergies Allergies/Adverse Reactions: Allergies Allergy/AdvReac Type Severity Reaction Status Date / Time No Known Drug Allergies Allergy Verified 09/05/19 15:54 Anes History & Medical History - Anesthetic History Anesthesia Complications: reports: Post-Operative Nausea/Vomiting - Medical History Cardiovascular: reports: None Pulmonary: reports: None Gastrointestinal: reports: None Urinary: reports: None Neuro: reports: None Musculoskeletal: reports: None Endocrine/Autoimmune: reports: None Blood Disorders: reports: None Skin: reports: None Smoking Status: Current every day smoker - Surgical History General: Appendectomy Gynecologic: Other Exam General: Alert Dental: WNL Mouth Opening: Greater than 4 Fingerbreadths Mallampati classification: II Thyromental Distance: greater than 6 cm Respiratory: Lungs clear Cardiovascular: Regular rate, Normal S1, Normal S2 Mental/Cognitive Status: Alert/Oriented X3 Plan Anesthesia Type: General Consent for Procedure(s) Verified and Reviewed: Yes Code Status: Attempt Resuscitation ASA classification: 2-Mild systemic disease Is this case an emergency?: No
[2019-09-11] MEDS ORDERED: SCOPOLAMINE PATCH TOP ONE (10:47)
[2019-09-11] MEDS ORDERED: ONDANSETRON 4 MG/2 ML VIAL IVP PRN (13:14)
[2019-09-11] MEDS ORDERED: oxyCODONE 5 MG TABLET PO PRN (13:14)
[2019-09-11] MEDS ORDERED: HYDROmorphone 0.5 MG/0.5 ML SYRINGE IVP PRN (13:14)
[2019-09-11] MEDS ORDERED: LORazepam 2 MG/ML VIAL IVP PRN (13:14)
--- NOTE | 2019-09-11 13:19 | OPERATIVE REPORT ---
Operative Report - General Procedure Date: 09/11/19 Planned Procedure: Diagnostic Laproscopy Procedure Performed: Diagnostic laproscopy with lysis of adhesions and removal of left para tubal cyst. Post Op Diagnosis: left sided pelvic adhesions adn left para tubal cyst - Procedure Note Primary Surgeon: damon Thomas MD Anesthesia Provider: Jarad Barnhart CRNA Anesthesia Technique: General ET tube Pathology: pelvic adhesions adn left paratubal cyst IV Fluids (mL): 800 Estimated Blood Loss (mL): 10 Indications: Pelvic pain
[2019-09-11] MEDS: fentaNYL 100 MCG/2 ML VIAL ONE ×3 (13:33→13:55)
[2019-09-11] MEDS ORDERED: ACETAMINOPHEN 1,000 MG/100 ML 100 ML IV ONE (13:35)
[2019-09-11] MEDS ORDERED: oxyCODONE 5 MG TABLET ONE (14:34)
[2019-09-11 14:52] VITALS: BP 105/55
--- NOTE | 2019-09-11 22:36 | OPERATIVE REPORT ---
DATE OF SERVICE: 09/11/2019 Physician: Jignesh Thomas MD PREOPERATIVE DIAGNOSIS: Left-sided pelvic pain. POSTOPERATIVE DIAGNOSIS: Left-sided pelvic adhesions with left paratubal cyst. PROCEDURE PERFORMED: Diagnostic laparoscopy with lysis of adhesions and removal of left paratubal cyst. SURGEON: Jignesh Thomas M.D. ANESTHESIA: Jarad Barnhart, general endotracheal tube. ESTIMATED BLOOD LOSS: 10 mL. IV FLUIDS: 800 mL. FINDINGS: Upon entering the abdominal cavity, there was evidence of filmy adhesions to the left side of the anterior abdominal wall to the uterus. There is also evidence of adhesions, which were fairly dense in the left paratubal area, as well as a left paratubal cyst. PROCEDURE IN DETAIL: Following adequate endotracheal anesthesia, the patient was placed in dorsal lithotomy position in Landen stirrups. At this point, a pelvic examination was accomplished, at which time there was fullness noted in the left adnexa. This was felt to probably represent constipated stool. She was then prepped and draped in the usual fashion. A timeout was performed, during which concerns were addressed. A speculum was placed in the vagina. The cervix was visualized and grasped with a single-tooth tenaculum. It was then dilated to 7 mm. The uterus was sounded to 8 cm and then a HUMI catheter was placed in the cervix and inflated. The drawing press operator's gloves were changed and following this, a stab wound was made in the subumbilical area following anesthesia with 0.5% Marcaine without epinephrine. An incision was made in the vertical orientation and then a 5-mm trocar and sheath was placed under direct visualization. There was no evidence of any injury to bowel at site of insertion. Then, utilizing 0.5% Marcaine without epinephrine, the two previous incisions were visualized, injected and then incised with a #11 blade. Two 5-mm ports were both placed under direct visualization. At this point, the pelvis was inspected. There was evidence of adhesions on the left anterior uterus, which were somewhat filmy. There was a small thin band. There were also adhesions to the left paratubal and IP area of the bowel to the left pelvic sidewall. A left paratubal cyst was also visualized. Utilizing the LigaSure, the anterior adhesions were taken down from the uterus. Care was taken to ensure there was evidence of no bleeding. There was minimal surgery to try and decrease the risk of further adhesion formation. The adhesions of the left side to the IP and pelvic wall were then taken down with both blunt and sharp dissection utilizing the LigaSure. Care was taken to stay clear of the bowel to decrease its injury. There was a left paratubal cyst, which was cauterized and transected at its base and brought out through the port. Both ureters were visualized and noted to be free of the operative field, and having good peristalsis at this point, the left and right lower quadrant ports were taken out under direct visualization. There was no evidence of any active bleeding. The laparoscope was taken out and the CO2 was allowed to escape prior to removal of the port. The left port had difficulty with oozing. This was treated with direct pressure and this responded. Both incisions were closed utilizing 4-0 Monocryl subcuticular as well as subumbilical port. Dermabond was then applied. A 4 x 4 pressure dressing was placed on the incision in the left lower quadrant. The HUMI was removed. The patient tolerated the procedure well and was taken to recovery in stable condition. Sponge and needle counts were correct. TD: 09/11/2019 13:33 DANELLE
== END 2019-09-11 10:14 | disposition home or self-care (01) ==
LOC: SDS 10:13
PROVIDERS: ATTEND Obstetrics & Gynecology
PROC: 0UB44ZZ Excision of Uterine Supporting Structure, Percutaneous Endoscopic Approach (ICD-10-PCS; principal; 2019-09-11 11:30)
DX: N83.8 Other noninflammatory disorders of ovary, fallopian tube and broad ligament (principal); N73.6 Female pelvic peritoneal adhesions (postinfective); G89.29 Other chronic pain; F17.210 Nicotine dependence, cigarettes, uncomplicated; Z87.898 Personal history of other specified conditions
CPT/HCPCS: 58662; A9270; J0131; J0690; J1170; J3490; J7120

== ENCOUNTER 2019-09-14 09:46 | Emergency (ER) | payer OTHER ==
[2019-09-14 10:05] VITALS: BP 101/63
[2019-09-14] MEDS ORDERED: BUPIVACAINE 0.5% PF 10 ML VIAL SUBQ STA (10:58)
--- NOTE | 2019-09-14 11:41 | ED Physician Documentation ---
PD HPI WOUND RECHECK - Stated complaint Stated Complaint: WOUND CHECK - Chief complaint Chief Complaint: Wound - Histroy obtained from History obtained from: Patient - History of Present Illness Location: Abdomen Timing - onset: Today Associated symptoms: Other (incision broke open) Similar symptoms before: Has not had sx before Recently seen: Surgery - Additional information Additional information: 24-year-old female is had laparoscopic lysis of adhesions done 3 days ago she has improvement in her pain but has now opened the incision in her umbilicus. She states that she sat down and the area popped open. This occurred this morning and she called the on-call [facility] doctor and was instructed to come to the emergency department for suture placement. Review of Systems Constitutional: denies: Fever Eyes: denies: Decreased vision Ears: denies: Ear pain Nose: denies: Congestion Throat: denies: Sore throat Cardiac: denies: Chest pain / pressure Respiratory: denies: Dyspnea, Cough GI: denies: Abdominal Pain, Nausea, Vomiting : denies: Dysuria PD PAST MEDICAL HISTORY - Past Medical History Cardiovascular: None Respiratory: None Neuro: None Endocrine/Autoimmune: None GI: None [facility]: Ovarian cysts : None HEENT: None Psych: None Musculoskeletal: None Derm: None - Past Surgical History Past Surgical History: Yes General: Appendectomy - Present Medications Home Medications: Ambulatory Orders Medication Instructions Recorded Confirmed Tramadol HCl 50 mg PO Q6HR PRN #20 tablet 09/05/19 09/11/19 - Allergies Allergies/Adverse Reactions: Allergies Allergy/AdvReac Type Severity Reaction Status Date / Time No Known Drug Allergies Allergy Verified 09/14/19 10:05 - Social History Does the pt smoke?: Yes Smoking Status: Current every day smoker Does the pt drink ETOH?: Yes Does the pt have substance abuse?: No - Immunizations Immunizations are current?: Yes - POLST Patient has POLST: No PD ED PE NORMAL - Vitals Vital signs reviewed: Yes (normal ) - General General: Alert and oriented X 3, No acute distress, Well developed/nourished - HEENT HEENT: Atraumatic, PERRL, EOMI - Abdomen Abdomen: Normal bowel sounds, Soft, Non tender, Non distended, No organomegaly, Other (There is dehisence of the umbilcal port site with oozing of blood there is no drainage to suggest infection. ) - Back Back: No CVA TTP, No spinal TTP - Derm Derm: Normal color, Warm and dry, No rash - Extremities Extremities: No deformity, No edema - Neuro Neuro: Alert and oriented X 3, vac press operator 2-12 intact, No motor deficit, No sensory deficit, Normal speech Eye Opening: Spontaneous Motor: Obeys Commands Verbal: Oriented GCS Score: 15 - Psych Psych: Normal mood, Normal affect Results - Vitals Vitals: Vital Signs - 24 hr 09/14/19 10:02 Temperature 37.1 C Heart Rate 88 Respiratory 18 Rate Blood Pressure 101/63 O2 Saturation 100 Oxygen O2 Source Room air Procedures - Laceration (location) umbilcus Length in cm: 1.5 Wound type: Linear, Clean Neurovascular status: Sensory intact, Motor intact, Vascular intact Anesthesia: Marcaine 0.5% Wound Preparation: Hibiclens, Irrigated copiously NS, Wound explored, To the base Deep layer closure: Vicryl, size #-0 - enter number (5-0), # sutures - enter number (2 subcuticular) Other: Patient tolerated well, No complications, Neurovascular intact, Tetanus UTD Complexity: Simple PD MEDICAL DECISION MAKING - ED course Complexity details: reviewed old records, considered differential, d/w patient, d/w foreign law consultant (Kadeem documentation manager [facility] recommends placement of subcuticular suture. ) ED course: 24-year-old female with recent lap scopic surgery has dehiscence of the umbilical wound and this is cleansed and closed with an absorbable suture. Departure - Departure Disposition: 01 Home, Self Care Clinical Impression: Wound dehiscence Condition: Stable Instructions: ED Laceration Trunk Follow-Up: Jignesh Thomas MD [Provider Admit Priv/Credential] -
[2019-09-14] MEDS ORDERED: TETANUS/DIPHTHERIA/PERTUSSIS 0.5 ML SYRINGE IM ONE (11:44)
== END 2019-09-14 12:07 | disposition home or self-care (01) ==
LOC: ED 09:46
DX: T81.30XA Disruption of wound, unspecified, initial encounter (principal)
CPT/HCPCS: 12001; 90471

== ENCOUNTER 2019-09-17 18:55 | Emergency (ER) | payer OTHER ==
[2019-09-17 19:23] LABS: BASOPHILS # (AUTO) 0.1 10^3/uL (0.0-0.1); EOSINOPHILS # (AUTO) 0.5 10^3/uL (0.0-0.7); EOSINOPHILS % (AUTO) 8.8 %; HGB - HEMOGLOBIN 13.4 g/dL (12.0-16.0); LYMPHOCYTES # (AUTO) 2.3 10^3/uL (1.5-3.5); LYMPHOCYTES % (AUTO) 38.7 %; MEAN CORPUSCULAR HEMOGLOBIN 30.5 pg (27.0-31.0); MEAN CORPUSCULAR VOLUME 95.2 fL (81.0-99.0); MEAN PLATELET VOLUME 8.5 fL (7.9-10.8); MONOCYTES # (AUTO) 0.5 10^3/uL (0.0-1.0); NEUTROPHILS # (AUTO) 2.6 10^3/uL (1.5-6.6); NEUTROPHILS % (AUTO) 43.2 %; PLT - PLATELET COUNT 305 10^3/uL (130-450); RED CELL DISTRIBUTION WIDTH 11.9 % (12.0-15.0)
[2019-09-17 19:23] LABS: GLUCOSE, URINE (UA) NEGATIVE (NEGATIVE); KETONES,URINE (UA) NEGATIVE (NEGATIVE); LEUKOCYTE ESTERASE, URINE NEGATIVE (NEGATIVE); NITRITE,URINE NEGATIVE (NEGATIVE); OCCULT BLOOD,URINE LARGE (NEGATIVE); PH,URINE 6.5 PH (5.0-7.5); PROTEIN,URINE 100 mg/dL (NEGATIVE); UROBILINOGEN,URINE 0.2 (NORMAL) E.U./dL (NORMAL)
[2019-09-17 19:27] LABS: BILIRUBIN,URINE NEGATIVE (NEGATIVE); CLARITY,URINE BLOODY (CLEAR); HCG UR QUAL NEGATIVE; ICTOTEST,URINE NEGATIVE
[2019-09-17 19:31] LABS: BACTERIA,URINE None Seen /HPF (None Seen); RBC,URINE TNTC /HPF (0-5); SQUAMOUS EPITHELIAL CELL,UR FEW Squamous (<= Few)
[2019-09-17 19:37] LABS: ALBUMIN/GLOBULIN RATIO 1.2 (1.0-2.2); BILIRUBIN,TOTAL 0.4 mg/dL (0.2-1.0); CALCIUM 9.2 mg/dL (8.5-10.3); CREATININE 0.5 mg/dL (0.4-1.0); TOTAL PROTEIN 7.4 g/dL (6.7-8.2)
[2019-09-17] MEDS ORDERED: HYDROmorphone 1 MG/ML CARPUJECT IM STA (19:47)
--- NOTE | 2019-09-17 19:48 | ED Physician Documentation ---
PD HPI ABD PAIN - Stated complaint Stated Complaint: HEAVY BLEEDING - Chief complaint Chief Complaint: Abd Pain - History obtained from History obtained from: Patient (24-year-old woman is a week out from surgery here by Dr. Thomas with pelvic adhesio lysis and removal of a left paratubal cyst. She used up all of her oxycodone postoperatively. Today developed heavy vaginal bleeding going through a pad every hour and left-sided pelvic pain. No vomiting. She is been moving her bowels okay.) Review of Systems Ten Systems: 10 systems reviewed and negative Constitutional: denies: Fever, Chills Cardiac: denies: Chest pain / pressure, Palpitations PD PAST MEDICAL HISTORY - Past Medical History Cardiovascular: None Respiratory: None Neuro: None Endocrine/Autoimmune: None GI: None [employer]: Ovarian cysts : None HEENT: None Psych: None Musculoskeletal: None Derm: None - Past Surgical History Past Surgical History: Yes General: Appendectomy - Present Medications Home Medications: Ambulatory Orders Medication Instructions Recorded Confirmed Tramadol HCl 50 mg PO Q6HR PRN #20 tablet 09/05/19 09/11/19 Oxycodone HCl/Acetaminophen 1 - 2 each PO Q6H PRN #10 tablet 09/17/19 [Percocet 5-325 mg Tablet] - Allergies Allergies/Adverse Reactions: Allergies Allergy/AdvReac Type Severity Reaction Status Date / Time No Known Drug Allergies Allergy Verified 09/17/19 18:58 - Social History Does the pt smoke?: Yes Smoking Status: Current every day smoker Does the pt drink ETOH?: Yes Does the pt have substance abuse?: No - Immunizations Immunizations are current?: Yes - POLST Patient has POLST: No PD ED PE NORMAL - Vitals Vital signs reviewed: Yes - General General: Alert and oriented X 3, No acute distress - Abdomen Abdomen: Normal bowel sounds, Soft, Non tender - Female Female : Welder And Fitter present (Margaret Elise RN), Other (Modest amount of dark blood in the vault, after clearing there was no active ooze from the cervix.) - Neuro Neuro: Alert and oriented X 3, Normal speech Results - Vitals Vitals: Vital Signs - 24 hr 09/17/19 18:58 Temperature 36.5 C Heart Rate 99 Respiratory 16 Rate Blood Pressure 117/73 O2 Saturation 97 Oxygen O2 Source Room air - Labs Labs: Laboratory Tests 11/09/17/19 09/17/19 19:07 19:15 19:15 WBC 6.0 RBC 4.40 Hgb 13.4 Hct 41.9 MCV 95.2 MCH 30.5 MCHC 32.0 RDW 11.9 L Plt Count 305 MPV 8.5 Neut # (Auto) 2.6 Lymph # (Auto) 2.3 [place] # (Auto) 0.5 Eos # (Auto) 0.5 Baso # (Auto) 0.1 Absolute Nucleated RBC 0.00 Nucleated RBC % 0.0 Sodium 137 Potassium 3.5 Chloride 102 Carbon Dioxide 26 Anion Gap 9.0 BUN 11 Creatinine 0.5 Estimated GFR (MDRD) 149 Glucose 119 H Calcium 9.2 Total Bilirubin 0.4 AST 28 ALT 77 H Alkaline Phosphatase 46 Total Protein 7.4 Albumin 4.0 Globulin 3.4 Albumin/Globulin Ratio 1.2 Lipase 28 Urine Color RED/BLOODY Urine Clarity BLOODY Urine pH 6.5 Ur Specific [place] 1.025 Urine Protein 100 H Urine Glucose (UA) NEGATIVE Urine Ketones NEGATIVE Urine Occult Blood LARGE H Urine Nitrite NEGATIVE Urine Bilirubin NEGATIVE Urine Urobilinogen 0.2 (NORMAL) Ur Leukocyte Esterase NEGATIVE Urine RBC TNTC H Urine WBC 0-3 Ur Squamous Epith Cells FEW Squamous Urine Bacteria None Seen Ur Microscopic Review INDICATED Urine Culture Comments NOT INDICATED Urine HCG, Qual NEGATIVE PD MEDICAL DECISION MAKING - ED course ED course: 24-year-old woman with vaginal bleeding a week out postop from lysis of adhesions and a paratubal cyst removal. Hemodynamics are good as is her hemoglobin and hematocrit. No active bleeding on pelvic exam. Case discussed by phone with Dr. Quan who recommends watchful waiting. Departure - Departure Disposition: 01 Home, Self Care Clinical Impression: Pelvic pain Condition: Good Record reviewed to determine appropriate education?: Yes Instructions: ED Bleed Irregular Vaginal Prescriptions: Oxycodone HCl/Acetaminophen [Percocet 5-325 mg Tablet] 1 - 2 each PO Q6H PRN #10 tablet PRN Reason: pain Comments: Return if bleeding worsens or other new or worrisome symptoms. Otherwise follow-up with the genetic physician as scheduled for a postop check.
[2019-09-17] MEDS ORDERED: oxyCODONE/ACET 5/325 Prepack 4 PO STA (20:34)
[2019-09-17 20:51] VITALS: BP 113/73
== END 2019-09-17 20:51 | disposition home or self-care (01) ==
LOC: ED 18:55
DX: R10.2 Pelvic and perineal pain (principal); N93.9 Abnormal uterine and vaginal bleeding, unspecified; Z98.890 Other specified postprocedural states; F17.200 Nicotine dependence, unspecified, uncomplicated
CPT/HCPCS: 36415; 80053; 81001; 81025; 83690; 85025; 96372; 99283; J1170; 81003; 87086

== ENCOUNTER 2019-09-20 09:37 | Emergency (ER) | payer OTHER ==
[2019-09-20 10:33] LABS: BILIRUBIN,URINE NEGATIVE (NEGATIVE); CLARITY,URINE HAZY (CLEAR); GLUCOSE, URINE (UA) NEGATIVE (NEGATIVE); KETONES,URINE (UA) NEGATIVE (NEGATIVE); LEUKOCYTE ESTERASE, URINE NEGATIVE (NEGATIVE); NITRITE,URINE NEGATIVE (NEGATIVE); OCCULT BLOOD,URINE MODERATE (NEGATIVE); PROTEIN,URINE NEGATIVE (NEGATIVE); UROBILINOGEN,URINE 0.2 (NORMAL) E.U./dL (NORMAL)
[2019-09-20 10:37] LABS: BACTERIA,URINE Rare /HPF (None Seen); RBC,URINE 0-5 /HPF (0-5); SQUAMOUS EPITHELIAL CELL,UR FEW Squamous (<= Few)
[2019-09-20 10:47] LABS: BASOPHILS # (AUTO) 0.1 10^3/uL (0.0-0.1); BASOPHILS % (AUTO) 1.1 %; EOSINOPHILS # (AUTO) 0.5 10^3/uL (0.0-0.7); EOSINOPHILS % (AUTO) 11.2 %; HGB - HEMOGLOBIN 13.1 g/dL (12.0-16.0); LYMPHOCYTES # (AUTO) 1.5 10^3/uL (1.5-3.5); LYMPHOCYTES % (AUTO) 32.7 %; MEAN CORPUSCULAR HEMOGLOBIN 31.5 pg (27.0-31.0); MEAN CORPUSCULAR HGB CONC 32.6 g/dL (32.0-36.0); MEAN CORPUSCULAR VOLUME 96.6 fL (81.0-99.0); MEAN PLATELET VOLUME 8.6 fL (7.9-10.8); MONOCYTES # (AUTO) 0.3 10^3/uL (0.0-1.0); MONOCYTES % (AUTO) 5.9 %; NEUTROPHILS # (AUTO) 2.2 10^3/uL (1.5-6.6); NEUTROPHILS % (AUTO) 48.7 %; PLT - PLATELET COUNT 310 10^3/uL (130-450); RED BLOOD COUNT 4.16 10^6/uL (4.20-5.40); RED CELL DISTRIBUTION WIDTH 11.8 % (12.0-15.0); WHITE BLOOD COUNT 4.6 x10^3/uL (4.8-10.8)
[2019-09-20] MEDS ORDERED: HYDROmorphone 1 MG/ML CARPUJECT IM STA ×2 (10:49→15:03)
[2019-09-20] MEDS ORDERED: KETOROLAC 30 MG/ML VIAL IM STA (10:49)
[2019-09-20 11:06] LABS: ALBUMIN 3.7 g/dL (3.2-5.5); ALBUMIN/GLOBULIN RATIO 1.2 (1.0-2.2); BILIRUBIN,TOTAL 0.2 mg/dL (0.2-1.0); CREATININE 0.6 mg/dL (0.4-1.0); TOTAL PROTEIN 6.7 g/dL (6.7-8.2)
--- NOTE | 2019-09-20 14:17 | Ultrasound Report ---
Reason: pelvic pain; vag bleeding; 9 days post op Procedure Date: 09/20/2019 Accession Number: [id number] / [id number] Procedure: US - Pelvic w/Transvag+Doppler Ltd CPT Code: Final Report FULL RESULT: EXAM: PELVIC ULTRASOUND WITH DOPPLERS CLINICAL HISTORY: Pelvic pain and vaginal bleeding in a 24-year-old female, 9 days post op. COMPARISON: PELVIC W/TRANSVAGINAL 08/29/2019 7:23 PM OB FIRST TRIMESTER 07/04/2019 7:23 PM TECHNIQUE: Realtime transabdominal imaging performed to identify the uterus and adnexa and as an overview of other pelvic structures, followed by transvaginal imaging for better assessment of the endometrium and adnexa, with static image documentation. Color flow imaging and Doppler spectral analysis was performed to evaluate blood flow to the ovaries given pelvic pain and clinical concern for ovarian torsion. FINDINGS: Uterus: 6.9 x 5.1 x 6 cm, volume 111 cc. Anteverted position. Normal overall size and echotexture. Masses: None. Endometrium: 3 mm. Normal. No mass, cyst, polyp or abnormal vascularity. Cervix: Unremarkable. Right Ovary: 4.1 x 2.3 x 4 cm, volume 19.8 cc. Normal echotexture. Arterial and venous blood flow are present.Benign age-appropriate follicle cysts. PSV 14.7 cm/sec. RI 0.7. Adnexa are unremarkable. Left Ovary: 3.7 x 2.8 x 2.7 cm, volume 14.6 cc. Normal echotexture. Arterial and venous blood flow are present.Age-appropriate follicle cysts. PSV 5.9 cm/sec. RI 0.6. Adnexa are unremarkable. Free Fluid: Small amount, likely physiologic. Other: None. IMPRESSION: Unremarkable pelvic ultrasound for age and menstrual status. Normal-appearing uterus without retained products of conception or blood. Unremarkable ovaries and adnexa. No ectopic or other demonstrated cause for the patient's symptoms. RAD[facility]
--- NOTE | 2019-09-20 15:06 | ED Physician Documentation ---
PD HPI FEMALE - Stated complaint Stated Complaint: ABD PX - Chief complaint Chief Complaint: Abd Pain - History obtained from History obtained from: Patient - History of Present Illness Timing - onset: How many days ago (8) Timing - duration: Days (8) Timing - details: Gradual onset, Still present, Waxing and waning Associated symptoms: Abdominal pain (had laparoscopy for pelvic pain 9 days ago and had lysis adhesion. Has had pain in lower abd since with then onset of vag bleeding several days ago and is heavy bleeding. No clots. LMP was 4-5 weeks prior to that.), Vaginal bleeding. No: Fever, Vaginal discharge Contributing factors: No: , Exposed to STD Recently seen: Emergency Dept (seen in ER post op with dehiscence abd incision and suture placed. Seen couple days ago with pain and bleeding. Given Rx for Percocet. This was helping moderately. Bleeding continues though.), Surgery (9 days ago) Review of Systems Constitutional: denies: Fever, Myalgias Nose: denies: Rhinorrhea / runny nose, Congestion Throat: denies: Sore throat Respiratory: denies: Cough GI: reports: Abdominal Pain, Nausea. denies: Abdominal Swelling, Vomiting, Diarrhea : reports: Vaginal bleeding. 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 : None HEENT: None Psych: None Musculoskeletal: None Derm: None - Past Surgical History Past Surgical History: Yes General: Appendectomy - Present Medications Home Medications: Ambulatory Orders Medication Instructions Recorded Confirmed Tramadol HCl 50 mg PO Q6HR PRN #20 tablet 09/05/19 09/11/19 Oxycodone HCl/Acetaminophen 1 - 2 each PO Q6H PRN #10 tablet 09/17/19 [Percocet 5-325 mg Tablet] Docusate Sodium 100 mg PO DAILY #30 capsule 09/20/19 Naproxen 500 mg PO BID #20 tablet 09/20/19 Oxycodone HCl/Acetaminophen 1 each PO Q6H PRN #20 tablet 09/20/19 [Percocet 7.5-325 mg Tablet] - Allergies Allergies/Adverse Reactions: Allergies Allergy/AdvReac Type Severity Reaction Status Date / Time No Known Drug Allergies Allergy Verified 09/20/19 09:46 - Social History Does the pt smoke?: Yes Smoking Status: Current every day smoker Does the pt drink ETOH?: Yes Does the pt have substance abuse?: No - Immunizations Immunizations are current?: Yes - POLST Patient has POLST: No PD ED PE NORMAL - Vitals Vital signs reviewed: Yes - General General: Alert and oriented X 3, Well developed/nourished, Other (appears uncomfortable) - HEENT HEENT: Pharynx benign - Neck Neck: Supple, no meningeal sign, No adenopathy - Cardiac Cardiac: RRR, No murmur - Respiratory Respiratory: Clear bilaterally - Abdomen Abdomen: Normal bowel sounds, Soft, Non distended, No organomegaly, Other (tender suprapubic area and left lower abd where most of the adhesion work was done during scope. ) - Female Female : Deferred - Rectal Rectal: Deferred - Back Back: No CVA TTP - Derm Derm: Normal color, Warm and dry - Extremities Extremities: No tenderness to palpate, No edema, No calf tenderness / cord - Neuro Neuro: Alert and oriented X 3, No motor deficit, Normal speech Results - Vitals Vitals: Vital Signs - 24 hr 09/20/19 09/20/19 09/20/19 09:40 11:40 13:39 Temperature 36.5 C 36.9 C 36.6 C Heart Rate 90 82 83 Respiratory 17 12 16 Rate Blood Pressure 115/66 94/54 L 112/66 O2 Saturation 100 98 99 09/20/19 15:19 Temperature 36.6 C Heart Rate 86 Respiratory 16 Rate Blood Pressure 118/63 O2 Saturation 100 Oxygen O2 Source Room air - Labs Labs: Laboratory Tests 09/20/19 09/20/19 09/20/19 10:19 10:30 10:30 WBC 4.6 L RBC 4.16 L Hgb 13.1 Hct 40.2 MCV 96.6 MCH 31.5 H MCHC 32.6 RDW 11.8 L Plt Count 310 MPV 8.6 Neut # (Auto) 2.2 Lymph # (Auto) 1.5 [place] # (Auto) 0.3 Eos # (Auto) 0.5 Baso # (Auto) 0.1 Absolute Nucleated RBC 0.00 Nucleated RBC % 0.0 Sodium 141 Potassium 3.7 Chloride 105 Carbon Dioxide 29 Anion Gap 7.0 BUN 13 Creatinine 0.6 Estimated GFR (MDRD) 121 Glucose 107 H Calcium 9.0 Total Bilirubin 0.2 AST 21 ALT 38 Alkaline Phosphatase 33 L Total Protein 6.7 Albumin 3.7 Globulin 3.0 Albumin/Globulin Ratio 1.2 Lipase 27 Urine Color YELLOW Urine Clarity HAZY Urine pH 7.0 Ur Specific [place] 1.020 Urine Protein NEGATIVE Urine Glucose (UA) NEGATIVE Urine Ketones NEGATIVE Urine Occult Blood MODERATE H Urine Nitrite NEGATIVE Urine Bilirubin NEGATIVE Urine Urobilinogen 0.2 (NORMAL) Ur Leukocyte Esterase NEGATIVE Urine RBC 0-5 Urine WBC 0-3 Ur Squamous Epith Cells FEW Squamous Urine Bacteria Rare Ur Microscopic Review INDICATED Urine Culture Comments NOT INDICATED - Rads (name of study) pelvic U/S Radiology: Prelim report reviewed, See rad report PD MEDICAL DECISION MAKING - ED course Complexity details: reviewed results (pelvic U/S without acute process. Her vag bleeding could be normal menstruation with excess bleeding related to recent nathan regina/etc.), re-evaluated patient (Patient says she has packet of OCPs at home she can use. Pain improved with IM meds in ER. ), considered differential, d/w patient, d/w biometrics consultant (Dr. Jason, manager application, with suggestion of estrogen use. ) Departure - Departure Disposition: Home, Self Care Clinical Impression: Vaginal bleeding, Pelvic pain, Post-operative state Condition: Stable Record reviewed to determine appropriate education?: Yes Follow-Up: Jignesh Thomas MD [Provider Admit Priv/Credential] - Prescriptions: Docusate Sodium 100 mg PO DAILY #30 capsule Naproxen 500 mg PO BID #20 tablet Oxycodone HCl/Acetaminophen [Percocet 7.5-325 mg Tablet] 1 each PO Q6H PRN #20 tablet PRN Reason: Pain Comments: Use the Naproxen twice daily for 7-10 days. Add Tylenol or Oxycodone (increased dose from previously) as needed for pain. Use the control packet that you have at home and at the direction of the on-call vehicle technician, take 3 tablets today and then 2 of the tablets from the usual packet daily for the next 3 days and then just daily after that as usual. Follow-up Monday as planned. Return sooner if needed. Forms: Activity restrictions Discharge Date/Time: 09/20/19 15:25
[2019-09-20 15:21] VITALS: BP 118/63
== END 2019-09-20 15:25 | disposition home or self-care (01) ==
LOC: ED 09:37
DX: N93.9 Abnormal uterine and vaginal bleeding, unspecified (principal); R10.2 Pelvic and perineal pain; Z98.890 Other specified postprocedural states; F17.200 Nicotine dependence, unspecified, uncomplicated
CPT/HCPCS: 36415; 76830; 76856; 80053; 81001; 83690; 85025; 93976; 96372; 99284; J1170; 81003; 87086

== ENCOUNTER 2019-10-03 19:52 | Emergency (ER) | payer OTHER ==
[2019-10-03] MEDS ORDERED: BUPRENORPHINE 0.3 MG/ML VIAL IM ONE (20:15)
--- NOTE | 2019-10-03 20:19 | ED Physician Documentation ---
History of Present Illness - Stated complaint Stated Complaint: MED DEPENDANT - Chief complaint Chief Complaint: General - History obtained from History obtained from: Patient (24-year-old woman presents asking for help with Percocet use disorder. She takes 5 to 10/day, and is addicted. She is been trying to take herself off but developed symptoms including headache, stomachache, body wide pain and sweats.) Review of Systems Constitutional: reports: Sweats. denies: Fever, Chills Cardiac: denies: Chest pain / pressure Respiratory: denies: Dyspnea GI: reports: Nausea. 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 : None HEENT: None Psych: None Musculoskeletal: None Derm: None - Past Surgical History Past Surgical History: Yes General: Appendectomy - Present Medications Home Medications: Ambulatory Orders Medication Instructions Recorded Confirmed Tramadol HCl 50 mg PO Q6HR PRN #20 tablet 09/05/19 09/11/19 Oxycodone HCl/Acetaminophen 1 - 2 each PO Q6H PRN #10 tablet 09/17/19 [Percocet 5-325 mg Tablet] Docusate Sodium 100 mg PO DAILY #30 capsule 09/20/19 Naproxen 500 mg PO BID #20 tablet 09/20/19 Oxycodone HCl/Acetaminophen 1 each PO Q6H PRN #20 tablet 09/20/19 [Percocet 7.5-325 mg Tablet] - Allergies Allergies/Adverse Reactions: Allergies Allergy/AdvReac Type Severity Reaction Status Date / Time No Known Drug Allergies Allergy Verified 10/03/19 19:59 - Social History Does the pt smoke?: Yes Smoking Status: Current every day smoker Does the pt drink ETOH?: Yes Does the pt have substance abuse?: No - Immunizations Immunizations are current?: Yes - POLST Patient has POLST: No PD ED PE NORMAL - Vitals Vital signs reviewed: Yes - General General: Alert and oriented X 3, Other (She is slightly agitated) - HEENT HEENT: PERRL, EOMI - Neck Neck: Supple, no meningeal sign, No bony TTP - Neuro Neuro: Alert and oriented X 3, Normal speech Results - Vitals Vitals: Vital Signs - 24 hr 10/03/19 19:57 Temperature 36.5 C Heart Rate 91 Respiratory 16 Rate Blood Pressure 127/106 H O2 Saturation 97 Oxygen O2 Source Room air PD MEDICAL DECISION MAKING - ED course ED course: 24-year-old woman with opioid use disorder. She is given a dose of IM buprenorphine here. Pending outpatient follow-up tomorrow. Note that Suboxone is not available in the hospital. Departure - Departure Disposition: 01 Home, Self Care Clinical Impression: Opioid use disorder Condition: Good Record reviewed to determine appropriate education?: Yes Instructions: ED Withdrawal Narcotic Comments: Go to [facility] tomorrow, website printout is attached for further evaluation and treatment. Do not drive tonight. Forms: Activity restrictions
[2019-10-03 20:43] VITALS: BP 124/88
== END 2019-10-03 20:51 | disposition home or self-care (01) ==
LOC: ED 19:52
DX: F11.20 Opioid dependence, uncomplicated (principal); F17.200 Nicotine dependence, unspecified, uncomplicated
CPT/HCPCS: 96372; 99283; J0592

== ENCOUNTER 2019-10-16 15:24 | Emergency (ER) | payer OTHER ==
[2019-10-16 15:33] VITALS: BP 117/60
--- NOTE | 2019-10-16 15:42 | ED Physician Documentation ---
History of Present Illness - Stated complaint Stated Complaint: POST OP COMPLICATION - Chief complaint Chief Complaint: Wound - Additonal information Additional information: This is a 24-year-old female who presents with an opening of wound below her bellybutton. Patient had a laparoscopy with Dr. Thomas over a month ago With lysis of adhesions and removal of a left paratubal cyst. She subsequently developed some dehiscence of the umbilical wound, which was repaired by Dr. Mendoza on 09/14 using a Vicryl suture. She states that over the last several days she has had opening of the wound and some serous drainage from it. 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 : None HEENT: None Psych: None Musculoskeletal: None Derm: None - Past Surgical History Past Surgical History: Yes General: Appendectomy - Present Medications Home Medications: Ambulatory Orders Medication Instructions Recorded Confirmed Tramadol HCl 50 mg PO Q6HR PRN #20 tablet 09/05/19 09/11/19 Oxycodone HCl/Acetaminophen 1 - 2 each PO Q6H PRN #10 tablet 09/17/19 [Percocet 5-325 mg Tablet] Docusate Sodium 100 mg PO DAILY #30 capsule 09/20/19 Naproxen 500 mg PO BID #20 tablet 09/20/19 Oxycodone HCl/Acetaminophen 1 each PO Q6H PRN #20 tablet 09/20/19 [Percocet 7.5-325 mg Tablet] - Allergies Allergies/Adverse Reactions: Allergies Allergy/AdvReac Type Severity Reaction Status Date / Time No Known Drug Allergies Allergy Verified 10/16/19 15:33 - Social History Does the pt smoke?: Yes Smoking Status: Current every day smoker Does the pt drink ETOH?: Yes Does the pt have substance abuse?: No - Immunizations Immunizations are current?: Yes - POLST Patient has POLST: No PD ED PE NORMAL - General General: Alert and oriented X 3 - HEENT HEENT: Atraumatic - Cardiac Cardiac: RRR - Respiratory Respiratory: No respiratory distress - Abdomen Abdomen: Other (Soft, nontender just inferior to the case there is a a 1 cm vertically oriented wound/area of slight dehiscence that extends only shallowly into the subcutaneous tissue. There is no significant surrounding erythema, no fluctuance. There is a visible suture in the wound) - Neuro Neuro: Alert and oriented X 3 Results - Vitals Vitals: Vital Signs - 24 hr 10/16/19 15:30 Temperature 36.8 C Heart Rate 82 Respiratory 18 Rate Blood Pressure 117/60 O2 Saturation 99 Oxygen O2 Source Room air Procedures - Laceration (location) umbilicus Length in cm: 1 Wound type: Linear Wound Preparation: Other (Cleaned with NS) Skin layer closure: Dermabond, Steri strips Other: Patient tolerated well, No complications, Dressing applied Complexity: Simple PD MEDICAL DECISION MAKING - ED course ED course: Patient presents with a small wound inferior to her umbilicus, which has opened up. There is a suture present in the tissue and I have a high suspicion this was a small stitch abscess or rejection of the stitch that led to the opening of the wound. I removed the suture and it came out completely without issue, The wound base is shallow and clean there are no signs of infection or other foreign body. It would probably heal quite well from secondary intention but patient would like to minimize scarring, so I discussed the options of superficial stitch versus Steri-Strip and skin glue with the patient, she preferred to avoid further stitches, so using Steri-Strips and skin glue the wound was repaired with very good approximation. I discussed return precautions emphasizing signs of infection, recommended PCP follow-up and patient was discharged home in the care of her partner Departure - Departure Disposition: 01 Home, Self Care Clinical Impression: Wound dehiscence Condition: Good Follow-Up: Your,PCP [Other] - As Needed (For wound check if needed) Comments: You were seen today because the wound at the base of your bellybutton opened up. I think this was because there was a stitch that your body was rejecting. We remove the stitch and we have Steri-Stripped and glued the wound back together. The glue and Steri-Strips should flake off over the next 1 to 2 weeks. It is okay to shower, but do not scrub or soak the wound. If you are developing signs of infection such as increasing redness, or pus draining from the wound, return to the emergency department. Forms: Activity restrictions Discharge Date/Time: 10/16/19 16:19
== END 2019-10-16 16:19 | disposition home or self-care (01) ==
LOC: ED 15:24
DX: T81.31XA Disruption of external operation (surgical) wound, not elsewhere classified, initial encounter (principal); F17.200 Nicotine dependence, unspecified, uncomplicated
CPT/HCPCS: 12020

== ENCOUNTER 2019-10-18 18:20 | Emergency (ER) | payer OTHER ==
--- NOTE | 2019-10-18 19:32 | ED Physician Documentation ---
History of Present Illness - Stated complaint Stated Complaint: ABD WOUND - Chief complaint Chief Complaint: Laceration - Additonal information Additional information: This is a 24-year-old female who is known to me. She presents because small laceration in her bellybutton dehisced despite being closed with skin glue and Steri-Strips. She states that the raw wound Stings. She denies fever, this been no drainage from the wound. 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 : None HEENT: None Psych: None Musculoskeletal: None Derm: None - Past Surgical History Past Surgical History: Yes General: Appendectomy - Present Medications Home Medications: Ambulatory Orders Medication Instructions Recorded Confirmed Tramadol HCl 50 mg PO Q6HR PRN #20 tablet 09/05/19 09/11/19 Oxycodone HCl/Acetaminophen 1 - 2 each PO Q6H PRN #10 tablet 09/17/19 [Percocet 5-325 mg Tablet] Docusate Sodium 100 mg PO DAILY #30 capsule 09/20/19 Naproxen 500 mg PO BID #20 tablet 09/20/19 Oxycodone HCl/Acetaminophen 1 each PO Q6H PRN #20 tablet 09/20/19 [Percocet 7.5-325 mg Tablet] - Allergies Allergies/Adverse Reactions: Allergies Allergy/AdvReac Type Severity Reaction Status Date / Time No Known Drug Allergies Allergy Verified 10/16/19 15:33 - Social History Does the pt smoke?: Yes Smoking Status: Current every day smoker Does the pt drink ETOH?: Yes Does the pt have substance abuse?: No - Immunizations Immunizations are current?: Yes - POLST Patient has POLST: No PD ED PE NORMAL - General General: Alert and oriented X 3 - HEENT HEENT: Atraumatic - Respiratory Respiratory: No respiratory distress - Abdomen Abdomen: Other (There is a 1 cm superficial laceration extends just into the subcutaneous tissue in the inferior margin of the umbilicus. There is no surrounding erythema, no purulence, no drainage.) - Extremities Extremities: No deformity - Neuro Neuro: Alert and oriented X 3 Results - Vitals Vitals: Vital Signs - 24 hr 10/18/19 18:33 Temperature 37.0 C Heart Rate 67 Respiratory 18 Rate Blood Pressure 103/48 L O2 Saturation 100 Oxygen O2 Source Room air Procedures - Laceration (location) Abdomen Length in cm: 1 Wound type: Linear Wound Preparation: Other (Cleaned with normal saline) Skin layer closure: Other (Single simple interrupted 5-0 Ethilon suture) Other: Patient tolerated well, No complications Complexity: Simple PD MEDICAL DECISION MAKING - ED course ED course: Patient small laceration in the inferior margin of her umbilicus has dehisced despite skin glue, after discussion with the patient we have elected to suture this closed with a single 5-0 Ethilon stitch. The wound approximation was excellent. I reviewed wound care and return precautions with the patient, And she was discharged home. Departure - Departure Disposition: 01 Home, Self Care Clinical Impression: Laceration Condition: Good Instructions: ED Laceration All Follow-Up: Your,PCP [Other] (In 7 days for suture removal) Comments: We put a stitch to fix the cut in your bellybutton. This should be removed in 7 days. Try to keep the area dry. You may run water over the wound in the shower, but do not scrub at the wound. Pat the area dry after showering. If you are developing signs of infection such as redness extending out from the wound, please return for recheck.
[2019-10-18 19:56] VITALS: BP 107/57
== END 2019-10-18 19:55 | disposition home or self-care (01) ==
LOC: ED 18:20
DX: T81.30XA Disruption of wound, unspecified, initial encounter (principal); S31.115A Laceration without foreign body of abdominal wall, periumbilic region without penetration into peritoneal cavity, initial encounter; X58.XXXA Exposure to other specified factors, initial encounter
CPT/HCPCS: 12001; 99282

== ENCOUNTER 2019-11-08 20:32 | Emergency (ER) | payer OTHER ==
[2019-11-08 20:45] VITALS: BP 101/58
== END 2019-11-08 22:00 | disposition left against medical advice (07) ==
LOC: ED 20:32
DX: Z53.21 Procedure and treatment not carried out due to patient leaving prior to being seen by health care provider (principal)

== ENCOUNTER 2019-11-12 17:49 | Emergency (ER) | payer OTHER ==
--- NOTE | 2019-11-12 19:22 | ED Physician Documentation ---
PD HPI ALTERED MENTAL STATUS - Stated complaint Stated Complaint: CONFUSION/HEADACHE/HANDS HURT/ABD PX - Chief complaint Chief Complaint: Neuro - History obtained from History obtained from: Patient - History of Present Illness Timing - onset: How many weeks ago (has had some headaches frequently and also feeling forgetful, foggy thinking, and some difficulty with coordination, sleepy during the day. Also with bilateraly wrists pain and fingers numb intermittently, worse with gripping, repetitive use of hands.) Timing - duration: Weeks Timing - details: Gradual onset, Still present, Waxing and waning Quality / character: Confused, Disoriented Associated symptoms: Headache. No: Fever, Dyspnea, Cough, NVD, Focal weakness Contributing factors: New medication (trazodone for sleep and Hydroxyzine for anxiety. [place] very sleepy. Then had Zoloft started for anxiety a week ago, and Hydroxyzine was stopped then. She is feeling worse. Wrists hurting more too. Headache increased the past few days.). No: Recent illness, Recent injury, Substance abuse Basline status: Alert and oriented X 3, Ambulatory Similar symptoms before: No diagnosis Recently seen: Clinic Review of Systems Constitutional: denies: Fever, Chills, Myalgias Nose: denies: Rhinorrhea / runny nose, Congestion Throat: denies: Sore throat Respiratory: denies: Cough GI: reports: Nausea. denies: Abdominal Pain, Vomiting, Diarrhea Musculoskeletal: reports: Joint pain (both wrists volar aspect) Neurologic: reports: Headache. 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 : None HEENT: None Psych: Depression, Anxiety Musculoskeletal: None Derm: None - Past Surgical History Past Surgical History: Yes General: Appendectomy - Present Medications Home Medications: Ambulatory Orders Medication Instructions Recorded Confirmed Meloxicam [Mobic] 7.5 mg PO BID PRN #20 tablet 11/12/19 Sertraline [Zoloft] 25 mg PO DAILY PM 11/12/19 11/12/19 dexAMETHasone [Decadron] 4 mg PO DAILY #5 tablet 11/12/19 hydrOXYzine HCL [Hydroxyzine HCl] 50 mg PO BID PRN 11/12/19 11/12/19 traZODone [Desyrel] 50 mg PO HS 11/12/19 11/12/19 - Allergies Allergies/Adverse Reactions: Allergies Allergy/AdvReac Type Severity Reaction Status Date / Time No Known Drug Allergies Allergy Verified 11/12/19 17:53 - Social History Does the pt smoke?: Yes Smoking Status: Current every day smoker Does the pt drink ETOH?: Yes Does the pt have substance abuse?: No - Immunizations Immunizations are current?: Yes - POLST Patient has POLST: No PD ED PE NORMAL - General General: Alert and oriented X 3, Other - HEENT HEENT: Atraumatic - Neck Neck: Supple, no meningeal sign, No adenopathy, No JVD - Cardiac Cardiac: RRR, No murmur - Respiratory Respiratory: Clear bilaterally - Extremities Extremities: No edema, No calf tenderness / cord, Other (both wrists with tenderness to palpation volar aspect and with tapping as well. Numb in middle fingers with pressure at carpal tunnel area. 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, No motor deficit, No sensory deficit, Normal speech, Other Results - Vitals Vitals: Vital Signs - 24 hr 11/12/19 11/12/19 17:53 20:01 Temperature 36.6 C 36.9 C Heart Rate 96 89 Respiratory 16 18 Rate Blood Pressure 104/81 H 101/63 O2 Saturation 96 96 Oxygen O2 Source Room air - Labs Labs: Laboratory Tests 11/12/19 11/12/19 11/12/19 19:18 20:06 20:06 WBC 6.6 RBC 4.25 Hgb 13.1 Hct 39.9 MCV 93.9 MCH 30.8 MCHC 32.8 RDW 11.7 L Plt Count 263 MPV 8.3 Neut # (Auto) 3.5 Lymph # (Auto) 2.1 [place] # (Auto) 0.4 Eos # (Auto) 0.5 Baso # (Auto) 0.1 Absolute Nucleated RBC 0.00 Nucleated RBC % 0.0 ESR Sodium 137 Potassium 3.4 L Chloride 100 L Carbon Dioxide 27 Anion Gap 10.0 BUN 15 Creatinine 0.6 Estimated GFR (MDRD) 121 Glucose 93 Calcium 8.8 Magnesium 1.9 Total Bilirubin 0.5 AST 31 ALT 33 Alkaline Phosphatase 30 L Total Protein 6.6 L Albumin 3.7 Globulin 2.9 Albumin/Globulin Ratio 1.3 Lipase 28 TSH Urine Color YELLOW Urine Clarity CLEAR Urine pH 6.5 Ur Specific [place] 1.025 Urine Protein NEGATIVE Urine Glucose (UA) NEGATIVE Urine Ketones NEGATIVE Urine Occult Blood NEGATIVE Urine Nitrite NEGATIVE Urine Bilirubin NEGATIVE Urine Urobilinogen 0.2 (NORMAL) Ur Leukocyte Esterase NEGATIVE Ur Microscopic Review NOT INDICATED Urine Culture Comments NOT INDICATED Urine HCG, Qual NEGATIVE 11/12/19 11/12/19 20:06 20:06 WBC RBC Hgb Hct MCV MCH MCHC RDW Plt Count MPV Neut # (Auto) Lymph # (Auto) [place] # (Auto) Eos # (Auto) Baso # (Auto) Absolute Nucleated RBC Nucleated RBC % ESR 4 Sodium Potassium Chloride Carbon Dioxide Anion Gap BUN Creatinine Estimated GFR (MDRD) Glucose Calcium Magnesium Total Bilirubin AST ALT Alkaline Phosphatase Total Protein Albumin Globulin Albumin/Globulin Ratio Lipase TSH 2.24 Urine Color Urine Clarity Urine pH Ur Specific [place] Urine Protein Urine Glucose (UA) Urine Ketones Urine Occult Blood Urine Nitrite Urine Bilirubin Urine Urobilinogen Ur Leukocyte Esterase Ur Microscopic Review Urine Culture Comments Urine HCG, Qual - Rads (name of study) head CT Radiology: Prelim report reviewed (no acute process), See rad report PD MEDICAL DECISION MAKING - ED course Complexity details: considered differential (the wrists are tender and they hurt with ROM, c/w tendonitis of wrists (Capral tunnel). Has had headache for awhile; get CT but might also want to have MRI at some point. Timing of other symptoms (lightheaded, foggy thinking, balance problems) relate/start after starting new meds. So I think some of the symptoms are side effects. ), d/w patient Departure - Departure Disposition: 01 Home, Self Care Clinical Impression: Medication side effect Altered mental status Qualifiers: Altered mental status type: disorientation Qualified Code(s): R41.0 - Disorientation, unspecified Wrist pain, acute Qualifiers: Laterality: unspecified laterality Qualified Code(s): M25.539 - Pain in unspecified wrist Headache Qualifiers: Headache type: unspecified Headache chronicity pattern: acute headache Intractability: not intractable Qualified Code(s): R51 - Headache Condition: Stable Record reviewed to determine appropriate education?: Yes Instructions: ED Cephalgia Unspecified Prescriptions: dexAMETHasone [Decadron] 4 mg PO DAILY #5 tablet Meloxicam [Mobic] 7.5 mg PO BID PRN #20 tablet PRN Reason: Pain Comments: I think a good part of your symptoms of forgetful and lightheaded are from the medications. I would hold the Zoloft for now and decrease the trazodone to 25 mg nightly. Stay well-hydrated. See how you do over the next several days and if you are improving then could add the Zoloft half tablet for a week and see if you do okay with that. Your wrist pain sound like wrist tendinitis or carpal tunnel and wear the wrist splints either during activity to reduce the strain on them or at least splinted part of the time such as in the evening or while you are sleeping to reduce some of the irritation of it. We can try different anti-inflammatories of Mobic and Decadron to see if it helps with your headache and wrist pains. Your CT scan appears normal. Follow-up with your provider in the next several days to week and see how your symptoms are doing. If there is continued concern for neurologic symptoms, they can potentially arrange for an outpatient MRI to better evaluate for other processes. Forms: Activity restrictions Discharge Date/Time: 11/12/19 21:47
[2019-11-12 19:32] LABS: BILIRUBIN,URINE NEGATIVE (NEGATIVE); GLUCOSE, URINE (UA) NEGATIVE (NEGATIVE); KETONES,URINE (UA) NEGATIVE (NEGATIVE); LEUKOCYTE ESTERASE, URINE NEGATIVE (NEGATIVE); NITRITE,URINE NEGATIVE (NEGATIVE); OCCULT BLOOD,URINE NEGATIVE (NEGATIVE); PH,URINE 6.5 PH (5.0-7.5); PROTEIN,URINE NEGATIVE (NEGATIVE); UROBILINOGEN,URINE 0.2 (NORMAL) E.U./dL (NORMAL)
[2019-11-12 19:33] LABS: CLARITY,URINE CLEAR (CLEAR)
[2019-11-12 19:35] LABS: HCG UR QUAL NEGATIVE
[2019-11-12] MEDS ORDERED: CETIRIZINE 10 MG TABLET PO STA (19:55)
[2019-11-12] MEDS ORDERED: DEXAMETHASONE 10 MG/ML VIAL PO STA (19:55)
[2019-11-12] MEDS ORDERED: HYDROcod/ACETAM 5/325 MG TABLET PO STA (19:55)
[2019-11-12] MEDS ORDERED: CHERRY SYRUP 10 ML UDC PO ONE (19:55)
[2019-11-12 20:02] VITALS: BP 101/63
[2019-11-12 20:10] LABS: BASOPHILS # (AUTO) 0.1 10^3/uL (0.0-0.1); BASOPHILS % (AUTO) 0.8 %; EOSINOPHILS # (AUTO) 0.5 10^3/uL (0.0-0.7); EOSINOPHILS % (AUTO) 7.4 %; HGB - HEMOGLOBIN 13.1 g/dL (12.0-16.0); LYMPHOCYTES # (AUTO) 2.1 10^3/uL (1.5-3.5); LYMPHOCYTES % (AUTO) 31.6 %; MEAN CORPUSCULAR HEMOGLOBIN 30.8 pg (27.0-31.0); MEAN CORPUSCULAR HGB CONC 32.8 g/dL (32.0-36.0); MEAN CORPUSCULAR VOLUME 93.9 fL (81.0-99.0); MEAN PLATELET VOLUME 8.3 fL (7.9-10.8); MONOCYTES # (AUTO) 0.4 10^3/uL (0.0-1.0); MONOCYTES % (AUTO) 6.7 %; NEUTROPHILS # (AUTO) 3.5 10^3/uL (1.5-6.6); NEUTROPHILS % (AUTO) 53.2 %; PLT - PLATELET COUNT 263 10^3/uL (130-450); RED BLOOD COUNT 4.25 10^6/uL (4.20-5.40); RED CELL DISTRIBUTION WIDTH 11.7 % (12.0-15.0); WHITE BLOOD COUNT 6.6 x10^3/uL (4.8-10.8)
[2019-11-12 20:25] LABS: ALBUMIN 3.7 g/dL (3.2-5.5); ALBUMIN/GLOBULIN RATIO 1.3 (1.0-2.2); BILIRUBIN,TOTAL 0.5 mg/dL (0.2-1.0); CALCIUM 8.8 mg/dL (8.5-10.3); CREATININE 0.6 mg/dL (0.4-1.0); MAGNESIUM 1.9 mg/dL (1.7-2.8); TOTAL PROTEIN 6.6 g/dL (6.7-8.2)
--- NOTE | 2019-11-12 20:54 | CT Report ---
Reason: confusion; headache Procedure Date: 11/12/2019 Accession Number: [id number] / [id number] Procedure: CT - HEAD WO CPT Code: Final Report FULL RESULT: EXAM: CT HEAD EXAM DATE: 11/12/2019 08:29 PM. CLINICAL HISTORY: Confusion. Headache. Worsening memory. COMPARISON: None. TECHNIQUE: Multiaxial CT images were obtained from the foramen magnum to the vertex. Reformats: Sagittal and coronal. IV contrast: None. In accordance with CT protocol optimization, one or more of the following dose reduction techniques were utilized for this exam: automated exposure control, adjustment of mA and/or KV based on patient size, or use of iterative reconstructive technique. FINDINGS: Parenchyma: No intraparenchymal hemorrhage. No evidence of mass, midline shift, or CT findings of infarction. Jorgensen-white differentiation is distinct. Extraaxial Spaces: Normal for age. No subdural or epidural collections identified. Ventricles: Normal in size and position. Sinuses and Orbits: Imaged paranasal sinuses, orbits, and mastoids show no significant abnormality. Bones: No evidence of fracture or calvarial defect. Other: None. IMPRESSION: Normal head CT. RADIA
== END 2019-11-12 21:47 | disposition home or self-care (01) ==
LOC: ED 17:49
DX: R41.0 Disorientation, unspecified (principal); T43.225A Adverse effect of selective serotonin reuptake inhibitors, initial encounter; T43.215A Adverse effect of selective serotonin and norepinephrine reuptake inhibitors, initial encounter; M25.531 Pain in right wrist; M25.532 Pain in left wrist; R51 Headache; F17.200 Nicotine dependence, unspecified, uncomplicated; F32.9 Major depressive disorder, single episode, unspecified; F41.9 Anxiety disorder, unspecified; G47.00 Insomnia, unspecified
CPT/HCPCS: 36415; 70450; 81003; 81025; 83690; 83735; 85651; 99284; A9270; 80053; 81001; 84443; 85025; 87086

== ENCOUNTER 2020-01-28 15:45 | Outpatient (CLI) | payer OTHER ==
[2020-01-29 20:01] LABS: CANDIDA GROUP DNA NEGATIVE (NEGATIVE); CANDIDA KRUSEI DNA NEGATIVE (NEGATIVE); TRICHOMONAS VAGINALIS DNA NEGATIVE (NEGATIVE)
[2020-01-29 21:12] LABS: TRICHOMONAS VAGINALIS DNA NEGATIVE (NEGATIVE)
== END 2020-01-28 23:59 | disposition home or self-care (01) ==
LOC: LAB.R 15:45
PROVIDERS: ATTEND Obstetrics & Gynecology
DX: R10.2 Pelvic and perineal pain (principal); G89.29 Other chronic pain
CPT/HCPCS: 87491; 87591; 87661; 87801

== ENCOUNTER 2020-01-29 11:31 | Outpatient (CLI) | payer OTHER | END 2020-01-29 23:59 | disposition home or self-care (01) | LOC: LAB.WCP 11:31 | PROVIDERS: ATTEND Obstetrics & Gynecology | DX: R10.2 Pelvic and perineal pain (principal); G89.29 Other chronic pain | CPT/HCPCS: 36415; 84702 ==

== ENCOUNTER 2020-11-30 07:00 | Outpatient (CLI) | payer OTHER ==
[2020-11-30 21:02] LABS: CANDIDA GROUP DNA NEGATIVE (NEGATIVE); CANDIDA KRUSEI DNA NEGATIVE (NEGATIVE); TRICHOMONAS VAGINALIS DNA NEGATIVE (NEGATIVE)
== END 2020-11-30 23:59 | disposition home or self-care (01) ==
LOC: LAB.R 07:00
PROVIDERS: ATTEND Advanced Practice Midwife
DX: N76.0 Acute vaginitis (principal)
CPT/HCPCS: 87661; 87801

== ENCOUNTER 2021-01-28 19:55 | Emergency (ER) | payer BC, OTHER ==
--- OUTSIDE RECORDS SUMMARY | 2021-01-28 20:15 | EXTERNAL MEDICAL SUMMARY RPT | Continuity of Care Document ---
:1995 Demographics Phone Unavailable Preferred Language Unknown Marital Status Unknown Confucianism Affiliation Unknown Race Unknown Ethnic Group Unknown Author Organization [place] Address [address] [phone] Phone Social History date description facility [id number]
[2021-01-28] MEDS ORDERED: KETOROLAC 60 MG/2 ML VIAL IM STA (20:40)
[2021-01-28] MEDS ORDERED: predniSONE 20 MG TABLET PO STA (20:40)
--- NOTE | 2021-01-28 20:43 | ED Physician Documentation ---
History of Present Illness - Stated complaint Stated Complaint: BILAT HAND PX - Chief complaint Chief Complaint: Ext Problem - Additonal information Additional information: 25-year-old female presents emergency department for evaluation of bilateral hand and wrist pain that has been getting progressively worse over the last few months. She often feels a numbness in the middle finger and index finger. Sometimes it is worse in the morning after she wakes up. She has no fevers or swelling but feels that moving the hand too much makes it worse. She has been taking ibuprofen without relief of pain. Review of Systems Constitutional: reports: Reviewed and negative Eyes: reports: Reviewed and negative Ears: reports: Reviewed and negative Nose: reports: Reviewed and negative Throat: reports: Reviewed and negative Cardiac: reports: Reviewed and negative Respiratory: reports: Reviewed and negative GI: reports: Reviewed and negative : reports: Reviewed and negative Skin: reports: Reviewed and negative Musculoskeletal: reports: Extremity pain (Bilateral hand and wrist) Neurologic: denies: Generalized weakness, Focal weakness PD PAST MEDICAL HISTORY - Past Medical History Past Medical History: Yes Cardiovascular: None Respiratory: None Neuro: None Endocrine/Autoimmune: None GI: 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 - Past Surgical History Past Surgical History: Yes General: Appendectomy - Present Medications Home Medications: Ambulatory Orders Medication Instructions Recorded Confirmed Meloxicam [Mobic] 7.5 mg PO BID PRN #20 tablet 11/12/19 Sertraline [Zoloft] 25 mg PO DAILY PM 11/12/19 11/12/19 dexAMETHasone [Decadron] 4 mg PO DAILY #5 tablet 11/12/19 hydrOXYzine HCL [Hydroxyzine HCl] 50 mg PO BID PRN 11/12/19 11/12/19 traZODone [Desyrel] 50 mg PO HS 11/12/19 11/12/19 predniSONE [Deltasone] 40 mg PO DAILY 4 Days #8 tablet 01/28/21 - Allergies Allergies/Adverse Reactions: Allergies Allergy/AdvReac Type Severity Reaction Status Date / Time No Known Drug Allergies Allergy Verified 01/28/21 19:57 - Social History Does the pt smoke?: Yes Smoking Status: Current every day smoker Does the pt drink ETOH?: Yes Does the pt have substance abuse?: No - Immunizations Immunizations are current?: Yes - POLST Patient has POLST: No PD ED PE EXPANDED - General General: Alert, No acute distress - Extremities Extremities: Other (Lateral hands without swelling or erythema. Normal movement of all joints against resistance. Grasp is mildly weak bilaterally. Positive Phalen's bilaterally on exam.) Results - Vitals Vitals: Vital Signs - 24 hr 01/28/21 01/28/21 19:57 20:19 Temperature 36.6 C Heart Rate 82 Respiratory 16 16 Rate Blood Pressure 116/62 O2 Saturation 99 Oxygen O2 Source Room air PD MEDICAL DECISION MAKING - ED course Complexity details: reviewed old records, reviewed results, d/w patient ED course: 25-year-old female presents emergency department for evaluation of ongoing bilateral hand and wrist pain that has been getting progressively worse over the last few months. Often wakes up with some numbness in her middle and ring finger but also occasionally her thumbs. She denies any falls or trauma. There have been no fevers swelling or redness to the wrist or hand. On exam she does have a positive Phalen's. I suspect that this is carpal tunnel. Patient will be given wrist splints to wear at night advised close follow-up with primary care doctor. She may benefit from an EMG. I will also do a 5-day course of steroids to help with the pain acutely. Emergent return precautions were discussed. Departure - Departure Disposition: 01 Home, Self Care Clinical Impression: Carpal tunnel syndrome Qualifiers: Laterality: bilateral Qualified Code(s): G56.03 - Carpal tunnel syndrome, bilateral upper limbs Condition: Stable Record reviewed to determine appropriate education?: Yes Prescriptions: predniSONE [Deltasone] 40 mg PO DAILY 4 Days #8 tablet Comments: You were seen in the emergency department today for bilateral wrist and hand pain that is been getting worse over a number of months. As we discussed on exam it looks like you probably have a nerve entrapment in the hand or something similar to carpal tunnel. I have given you your first dose of steroid here in the emergency department. I would like you to fill the prescription tomorrow and begin taking daily for the next 4 days. Do not take meloxicam or ibuprofen while taking the steroid. I have also provided you with some wrist splints to wear especially at night. Please discuss this ED visit with your primary care doctor. You may benefit from further testing that could also include an EMG. If at any point you have the wrist swelling, fevers redness or any concerns of infection please return immediately to the emergency department.
[2021-01-28 21:18] VITALS: BP 122/75
== END 2021-01-28 21:22 | disposition home or self-care (01) ==
LOC: ED 19:55
DX: G56.03 Carpal tunnel syndrome, bilateral upper limbs (principal); F17.200 Nicotine dependence, unspecified, uncomplicated
CPT/HCPCS: 96372; 99282; 99283; J7512

== ENCOUNTER 2021-08-31 12:43 | Emergency (ER) | payer BC, OTHER ==
[2021-08-31 14:07] LABS: CORONAVIRUS 229E-RESP PCR NOT DETECTED; CORONAVIRUS HKU1-RESP PCR NOT DETECTED; CORONAVIRUS NL63-RESP PCR NOT DETECTED; CORONAVIRUS OC43-RESP PCR NOT DETECTED; HUMAN METAPNEUMOVIRUS NOT DETECTED; INFLUENZA A- RESP PCR PANEL NOT DETECTED; INFLUENZA B - RESP PCR PANEL NOT DETECTED; PARAINFLUENZA VIRUS 1 NOT DETECTED; PARAINFLUENZA VIRUS 2 NOT DETECTED; PARAINFLUENZA VIRUS 3 NOT DETECTED; PARAINFLUENZA VIRUS 4 NOT DETECTED; RHINOVIRUS/ENTEROVIRUS NOT DETECTED; SARS-CoV-2 -RESP PCR PANEL NOT DETECTED
[2021-08-31 14:08] LABS: B. PARAPERTUSSIS- RESP PCR PAN NOT DETECTED; B. PERTUSSIS- RESP PCR PANEL NOT DETECTED; C. PNEUMONIAE- RESP PCR PANEL NOT DETECTED; M. PNEUMONIAE- RESP PCR PANEL NOT DETECTED; RSV- RESP PCR PANEL NOT DETECTED
[2021-08-31] MEDS ORDERED: ALPRAZolam 0.25 MG TABLET PO STA (14:31)
--- NOTE | 2021-08-31 14:43 | XRAY Report ---
PROCEDURE: Chest 1 View X-Ray INDICATIONS: cough TECHNIQUE: One view of the chest was acquired. COMPARISON: None FINDINGS: Surgical changes and devices: None. Lungs and pleura: No pleural effusions or pneumothorax. Lungs are clear. Mediastinum: Mediastinal contours appear normal. Heart size is normal. Bones and chest wall: No suspicious bony lesions. Overlying soft tissues appear unremarkable. IMPRESSION: No acute cardiopulmonary pathology. Reviewed by: Ramana Morel MD on 08/31/2021 2:41 PM PST Approved by: Ramana Morel MD on 08/31/2021 2:41 PM PST Station ID: [id number]
[2021-08-31 14:44] VITALS: BP 108/58
--- NOTE | 2021-08-31 14:48 | ED Physician Documentation ---
History of Present Illness - Stated complaint Stated Complaint: SOA/DIZZY - Chief complaint Chief Complaint: Resp - History obtained from History obtained from: Patient - Additonal information Additional information: Patient comes emergency department chief complaint of cough and sinus congestion for the last couple of weeks. She states that she feels as though she cannot breathe through her nose and this begins to give her a panic attack. Patient states this makes her symptoms worse because she starts breathing hard because of the panic attack and then feels even less able to get the air she needs. Patient denies fevers or chills. No swelling in her lower extremities. She does not have any underlying lung conditions that she knows of. She is a smoker. No chest pain. No other complaints at this time. Review of Systems Ten Systems: 10 systems reviewed and negative Constitutional: reports: Reviewed and negative Eyes: reports: Reviewed and negative Ears: reports: Reviewed and negative Nose: reports: Congestion Throat: reports: Reviewed and negative Cardiac: reports: Reviewed and negative Respiratory: reports: Cough GI: reports: Reviewed and negative : reports: Reviewed and negative Skin: reports: Reviewed and negative Musculoskeletal: reports: Reviewed and negative Neurologic: reports: Reviewed and negative Psychiatric: reports: Reviewed and negative Endocrine: reports: Reviewed and negative Immunocompromised: reports: Reviewed and negative PD PAST MEDICAL HISTORY - Past Medical History Past Medical History: Yes Cardiovascular: None Respiratory: Asthma Neuro: Headaches Endocrine/Autoimmune: None GI: None 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 : None HEENT: None Psych: Depression, Anxiety Musculoskeletal: Other Derm: None - Past Surgical History Past Surgical History: Yes General: Appendectomy - Present Medications Home Medications: Ambulatory Orders Medication Instructions Recorded Confirmed Albuterol Sulfate [Proair Hfa 1 - 2 puffs INH Q4H PRN 08/31/21 08/31/21 Inhaler] - Allergies Allergies/Adverse Reactions: Allergies Allergy/AdvReac Type Severity Reaction Status Date / Time No Known Drug Allergies Allergy Verified 08/31/21 12:47 - Social History Does the pt smoke?: Yes Smoking Status: Current every day smoker Does the pt drink ETOH?: No Does the pt have substance abuse?: No - Immunizations Immunizations are current?: No Immunizations: Other immun not current - POLST Patient has POLST: No PD ED PE NORMAL - Vitals Vital signs reviewed: Yes - General General: Alert and oriented X 3, No acute distress, Well developed/nourished - HEENT HEENT: Atraumatic, PERRL, EOMI, Moist mucous membranes - Neck Neck: Supple, no meningeal sign - Cardiac Cardiac: RRR, No murmur, Strong equal pulses - Respiratory Respiratory: No respiratory distress, Clear bilaterally - Abdomen Abdomen: Soft, Non tender, Non distended - Derm Derm: Normal color, Warm and dry, No rash - Extremities Extremities: No deformity, No edema, No calf tenderness / cord - Neuro Neuro: Alert and oriented X 3, 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 parapertussis DNA (PCR) NOT DETECTED Nasal Coronavir 229E PCR NOT DETECTED Nasal Coronavir HKU1 PCR NOT DETECTED Nasal Coronavir NL63 PCR NOT DETECTED Nasal Coronavir OC43 PCR NOT DETECTED Nasal Enterovir/Rhinovir PCR NOT DETECTED Nasal Influenza B PCR NOT DETECTED Nasal Influenza A PCR NOT DETECTED Nasal Parainfluen 1 PCR NOT DETECTED Nasal Parainfluen 2 PCR NOT DETECTED Nasal Parainfluen 3 PCR NOT DETECTED Nasal Parainfluen 4 PCR NOT DETECTED Nasal RSV (PCR) NOT DETECTED Nasal B.pertussis DNA PCR NOT DETECTED Nasal C.pneumoniae (PCR) NOT DETECTED Jeromy Human Metapneumo PCR NOT DETECTED Nasal M.pneumoniae (PCR) NOT DETECTED Nasal SARS-CoV-2 (PCR) NOT DETECTED - Rads (name of study) chest XR Radiology: Final report received, EMP read indepedently, See rad report (neg) PD MEDICAL DECISION MAKING - ED course Complexity details: reviewed results, re-evaluated patient, considered differential, d/w patient ED course: Patient was worked up with chest x-ray and respiratory PCR in the emergency department, both which were negative. The patient requested oxygen, which she stated would help her panic attack by assuring her that she was getting enough oxygen to breathe. I advised her that she could be reassured by the fact that her oxygen saturation is 100% on room air, her lungs are clear, and she is not struggling in any way to breathe. I discussed with the patient that she has symptoms of an upper respiratory infection which should be self-limited. We discussed that she needs to follow-up with her primary care physician to determine whether she should be back on and taking anxiety regimen. She has received a dose of Xanax in the emergency department. We have discussed the usual indications for return. Departure - Departure Disposition: 01 Home, Self Care Clinical Impression: Anxiety Upper respiratory infection Qualifiers: URI type: unspecified viral URI Qualified Code(s): J06.9 - Acute upper respiratory infection, unspecified Condition: Stable Instructions: ED Panic Attack, ED Viral Syndrome Comments: Your viral panel and chest x-ray are negative. You most likely have one of the many upper respiratory infections that are going around right now. Your body will get rid of this on its own. There is no need for supplemental oxygen today, as you have a completely normal oxygen level here in the emergency department at 100% on room air. Please follow-up with your doctor to discuss whether you should be back on an anxiety medication. You have been treated with a dose here in the emergency department.
== END 2021-08-31 15:00 | disposition home or self-care (01) ==
LOC: ED 12:43
DX: J06.9 Acute upper respiratory infection, unspecified (principal); F41.9 Anxiety disorder, unspecified; F17.200 Nicotine dependence, unspecified, uncomplicated; Z20.822 Contact with and (suspected) exposure to COVID-19
CPT/HCPCS: 0202U; 71045; 99284; A9270

== ENCOUNTER 2021-11-18 08:00 | Outpatient (CLI) | payer BC, OTHER | END 2021-11-18 23:59 | disposition home or self-care (01) | LOC: LAB.N 08:00 | PROVIDERS: ATTEND Physician Assistant Medical | DX: U07.1 COVID-19 (principal) ==

== ENCOUNTER 2022-04-09 18:02 | Emergency (ER) | payer BC, MEDICAID, OTHER ==
[2022-04-09 18:14] VITALS: BP 116/93
--- NOTE | 2022-04-09 19:04 | ED Physician Documentation ---
History of Present Illness - Stated complaint Stated Complaint: MHE - Chief complaint Chief Complaint: MHE - Additonal information Additional information: 26-year-old female presents emergency department for concerns of increased difficulty sleeping. She states that she has difficulty falling asleep at night. However she often falls asleep spontaneously during the day. She is reporting increased confusion, often stating things that are nonsensical during conversation. She did speak with her primary care provider about her concerns of insomnia and was started on trazodone and does not feel that it helps. She also takes Zoloft for history of anxiety and depression. 9 she denies SI HI, AH or VH. She does not desire psychiatric hospitalization she is excessively concerned that she could have a brain tumor or diabetes. She initially denied any drug use but then stated that she occasionally does below with her friends the most recent time 3 days ago. She states that using stimulants has never caused insomnia for her in the past and she does not feel that is contributing to her symptoms. She denies any headaches, any weight loss or vision changes. She is hyperverbal Review of Systems Constitutional: reports: Other (insomnia). denies: Fever, Chills Eyes: reports: Reviewed and negative Ears: reports: Reviewed and negative Nose: reports: Reviewed and negative Throat: reports: Reviewed and negative Cardiac: reports: Reviewed and negative Respiratory: reports: Reviewed and negative GI: reports: Reviewed and negative : reports: Reviewed and negative Skin: reports: Reviewed and negative Musculoskeletal: reports: Reviewed and negative Neurologic: reports: Confused. 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: Ovarian cysts : None HEENT: None Psych: Depression, Anxiety Musculoskeletal: Other Derm: None - Past Surgical History Past Surgical History: Yes General: Appendectomy - Present Medications Home Medications: Ambulatory Orders Medication Instructions Recorded Confirmed Sertraline HCl 50 mg PO DAILY 04/09/22 04/09/22 - Allergies Allergies/Adverse Reactions: Allergies Allergy/AdvReac Type Severity Reaction Status Date / Time No Known Drug Allergies Allergy Verified 04/09/22 18:14 - Social History Does the pt smoke?: No Smoking Status: Never smoker Does the pt drink ETOH?: No Does the pt have substance abuse?: No - Immunizations Immunizations are current?: No Immunizations: Other immun not current - POLST Patient has POLST: No PD ED PE EXPANDED - General General: Alert, Anxious (Rocking back and forth on the bed) - HEENT HEENT: Atraumatic, PERRL, EOMI - Neck Neck: Supple w/out meningeal sx - Cardiac Cardiac: Regular Rate, Radial strong equal. No: Murmur Present - Respiratory Respiratory: Clear to ausultation zeus. No: Distress, Labored - Abdomen Abdomen: Normal Bowel sounds. No: Tender to palpation - Extremities Extremities: Normal. No: Deformity, Tenderness - Neuro Neuro: Alert and Oriented X 3, CNII-XII intact - GCS Eye Opening: Spontaneous Motor: Obeys Commands Verbal: Oriented Total: 15 Results - Vitals Vitals: Vital Signs - 24 hr 04/09/22 18:09 Temperature 36.3 C L Heart Rate 82 Respiratory 16 Rate Blood Pressure 116/93 H O2 Saturation 95 Oxygen O2 Source Room air PD MEDICAL DECISION MAKING - ED course Complexity details: d/w patient ED course: 18-year-old female presented to the emergency department seeking evaluation for insomnia. She has had this occasionally over the last few months but increasingly worse over the last few weeks. She states she is often becoming confused saying things that are inappropriate. She states she is falling asleep when talking She does endorse recreational stimulant use though does not feel this contributes to her symptoms. She is hyperverbal and anxious on exam. She is concerned about diabetes or a brain tumor. I did offer screening labs including a thyroid. I did indicate to her that we would also do a urine drug screen. She was initially agreeable to this testing but a few minutes after the provider left the room she eloped from the emergency department without consulting staff. At the time of last evaluation she was alert and well-appearing. She had capacity to leave without Discussing her care further. She did not seem to be unsafe or have thoughts of self harm to herself or to others. Departure - Departure Disposition: ED Elope Clinical Impression: Insomnia Qualifiers: Insomnia type: unspecified Qualified Code(s): G47.00 - Insomnia, unspecified
[2022-04-09 19:18] LABS: BASOPHILS # (AUTO) 0.1 10^3/uL (0.0-0.1); EOSINOPHILS % (AUTO) 10.5 %; HCT - HEMATOCRIT 37.4 % (37.0-47.0); HGB - HEMOGLOBIN 12.4 g/dL (12.0-16.0); LYMPHOCYTES # (AUTO) 3.3 10^3/uL (1.5-3.5); LYMPHOCYTES % (AUTO) 36.9 %; MEAN CORPUSCULAR HEMOGLOBIN 30.8 pg (27.0-31.0); MEAN CORPUSCULAR HGB CONC 33.2 g/dL (32.0-36.0); MONOCYTES # (AUTO) 0.5 10^3/uL (0.0-1.0); MONOCYTES % (AUTO) 5.8 %; NEUTROPHILS # (AUTO) 4.1 10^3/uL (1.5-6.6); NEUTROPHILS % (AUTO) 45.6 %; PLT - PLATELET COUNT 330 10^3/uL (130-450); RED BLOOD COUNT 4.02 10^6/uL (4.20-5.40); RED CELL DISTRIBUTION WIDTH 11.4 % (12.0-15.0)
[2022-04-09 19:37] LABS: ACETAMINOPHEN < 10 ug/mL (10-30); ALBUMIN 4.2 g/dL (3.2-5.5); ALBUMIN/GLOBULIN RATIO 1.2 (1.0-2.2); ALKALINE PHOSPHATASE 42 IU/L (42-121); ALT ALANINE AMINOTRANSFERASE 25 IU/L (10-60); AST ASPARTATE AMINOTRANSFERASE 24 IU/L (10-42); BILIRUBIN,TOTAL 0.4 mg/dL (0.2-1.0); BUN - BLOOD UREA NITROGEN 9 mg/dL (6-20); CALCIUM 9.1 mg/dL (8.5-10.3); CARBON DIOXIDE - CO2 29 mmol/L (21-32); CHLORIDE 100 mmol/L (101-111); CREATININE 0.6 mg/dL (0.4-1.0); ETOH - ETHANOL < 5.0 mg/dL; GFR - MDRD 119 (>89); GLUCOSE 107 mg/dL (70-100); LIPASE 27 U/L (22-51); POTASSIUM 3.7 mmol/L (3.5-5.0); SALICYLATE < 6.0 mg/dL; SODIUM 139 mmol/L (135-145); TOTAL PROTEIN 7.7 g/dL (6.7-8.2)
== END 2022-04-09 19:30 | disposition left against medical advice (07) ==
LOC: ED 18:02
DX: G47.00 Insomnia, unspecified (principal)
CPT/HCPCS: 36415; 80053; 80307; 80320; 80329; 83690; 84443; 85025; 99281; 99282

== ENCOUNTER 2022-11-13 00:45 | Emergency (ER) | payer MEDICAID ==
[2022-11-13 02:20] LABS: BASOPHILS % (AUTO) 0.6 %; EOSINOPHILS # (AUTO) 0.3 10^3/uL (0.0-0.7); EOSINOPHILS % (AUTO) 3.8 %; HCT - HEMATOCRIT 36.9 % (37.0-47.0); HGB - HEMOGLOBIN 12.1 g/dL (12.0-16.0); LYMPHOCYTES # (AUTO) 2.8 10^3/uL (1.5-3.5); LYMPHOCYTES % (AUTO) 39.6 %; MEAN CORPUSCULAR HEMOGLOBIN 30.2 pg (27.0-31.0); MEAN CORPUSCULAR HGB CONC 32.8 g/dL (32.0-36.0); MEAN PLATELET VOLUME 8.1 fL (7.9-10.8); MONOCYTES # (AUTO) 0.4 10^3/uL (0.0-1.0); MONOCYTES % (AUTO) 5.5 %; NEUTROPHILS # (AUTO) 3.5 10^3/uL (1.5-6.6); NEUTROPHILS % (AUTO) 50.2 %; PLT - PLATELET COUNT 343 10^3/uL (130-450); RED BLOOD COUNT 4.01 10^6/uL (4.20-5.40); RED CELL DISTRIBUTION WIDTH 11.8 % (12.0-15.0)
[2022-11-13 02:22] LABS: HCG UR QUAL NEGATIVE
[2022-11-13 02:30] LABS: ALBUMIN 4.1 g/dL (3.2-5.5); ALBUMIN/GLOBULIN RATIO 1.2 (1.0-2.2); BILIRUBIN,TOTAL 0.5 mg/dL (0.2-1.0); CALCIUM 9.2 mg/dL (8.5-10.3); CREATININE 0.7 mg/dL (0.4-1.0); POTASSIUM 3.9 mmol/L (3.5-5.0); TOTAL PROTEIN 7.4 g/dL (6.7-8.2)
--- NOTE | 2022-11-13 03:15 | ED Physician Documentation ---
PD HPI FEMALE - Stated complaint Stated Complaint: HEAVY VAG BLEEDING - Chief complaint Chief Complaint: General - History obtained from History obtained from: Patient - History of Present Illness Timing - onset: How many weeks ago (2-3) Pain level max: 5 Associated symptoms: Pelvic pain, Vaginal bleeding. No: Fever Contributing factors: No: Recently seen: Emergency Dept - Additional information Additional information: HPI from patient. Patient c/o "bleeding for about two weeks now", became more severe today. The bleeding has been associated with "cramps in my stomach". She says she "just doesn't feel right", and reiterates chief complaint of vaginal bleeding, "a lot" x 2 weeks. She was evaluated for same symptoms in [facility] ([place], [place]), two visits (10/20/22 and 10/27/22). 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 CRISTINA form reflects that [place] is her ninth [facility] ED visit over past 12 months utilizing three different EDs. Review of Systems Constitutional: denies: Fever Cardiac: reports: Reviewed and negative Respiratory: reports: Reviewed and negative GI: reports: Abdominal Pain (cramping pain across lower abdomen and anterior pelvis). 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: Ovarian cysts : None HEENT: None Psych: Depression, Anxiety Musculoskeletal: Other Derm: None - Past Surgical History Past Surgical History: Yes General: Appendectomy - Present Medications Home Medications: Ambulatory Orders Medication Instructions Recorded Confirmed Sertraline HCl 50 mg PO DAILY 04/09/22 04/09/22 Medroxyprogesterone Acetate 10 mg PO DAILY 10 Days #20 tablet 11/13/22 [Provera] Tranexamic Acid 1,300 mg PO TID 5 Days #30 tablet 11/13/22 - Allergies Allergies/Adverse Reactions: Allergies Allergy/AdvReac Type Severity Reaction Status Date / Time No Known Drug Allergies Allergy Verified 11/13/22 01:06 - Social History Does the pt smoke?: No Smoking Status: Never smoker Does the pt drink ETOH?: No Does the pt have substance abuse?: No - Immunizations Immunizations are current?: No Immunizations: Other immun not current - POLST Patient has POLST: No PD ED PE NORMAL - Vitals Vital signs reviewed: Yes - General General: Alert and oriented X 3, No acute distress, Well developed/nourished - HEENT HEENT: Moist mucous membranes - Neck Neck: Supple, no meningeal sign - Cardiac Cardiac: RRR, No murmur - Respiratory Respiratory: No respiratory distress, Clear bilaterally - Abdomen Abdomen: Normal bowel sounds, Soft, Non tender - Back Back: No CVA TTP - Derm Derm: Normal color, Warm and dry - Extremities Extremities: No edema Results - Vitals Vitals: Oxygen O2 Source Room air - Labs Labs: Laboratory Tests 11/13/22 11/13/22 11/13/22 01:59 02:13 02:13 WBC 7.0 RBC 4.01 L Hgb 12.1 Hct 36.9 L MCV 92.0 MCH 30.2 MCHC 32.8 RDW 11.8 L Plt Count 343 MPV 8.1 Neut # (Auto) 3.5 Lymph # (Auto) 2.8 Barron # (Auto) 0.4 Eos # (Auto) 0.3 Baso # (Auto) 0.0 Absolute Nucleated RBC 0.00 Nucleated RBC % 0.0 Sodium 137 Potassium 3.9 Chloride 102 Carbon Dioxide 27 Anion Gap 8.0 BUN 15 Creatinine 0.7 Estimated GFR (MDRD) 99 Glucose 92 Calcium 9.2 Total Bilirubin 0.5 AST 21 ALT 25 Alkaline Phosphatase 40 L Total Protein 7.4 Albumin 4.1 Globulin 3.3 Albumin/Globulin Ratio 1.2 Lipase 27 Urine HCG, Qual NEGATIVE 11/13/22 05:43 WBC RBC Hgb 11.9 L Hct 37.5 MCV MCH MCHC RDW Plt Count MPV Neut # (Auto) Lymph # (Auto) Barron # (Auto) Eos # (Auto) Baso # (Auto) Absolute Nucleated RBC Nucleated RBC % Sodium Potassium Chloride Carbon Dioxide Anion Gap BUN Creatinine Estimated GFR (MDRD) Glucose Calcium Total Bilirubin AST ALT Alkaline Phosphatase Total Protein Albumin Globulin Albumin/Globulin Ratio Lipase Urine HCG, Qual - Rads (name of study) CT A/P with IV contrast Radiology: Prelim report reviewed, See rad report PD Medical Decision Making - ED course Complexity details: reviewed old records, reviewed results, re-evaluated patient, considered differential, d/w patient ED course: Tests ordered and results reviewed by me: CBC, ER abdominal panel, urine HCG, CT A/P with IV contrast, repeat h/h. CBC notable for unremarkable h/h (hgb 12.1, hct 36.9). After over two hours in ED, no significant change: hgb 11.9, hct 37.5. UHCG negative. CT A/P without acute, diagnostic, concerning findings. Hepatic steatosis noted. Records from [facility] ED visit (10/27/22) requested, faxed to [facility] ED, and then reviewed by me. Testing at that time included ultrasound (final impression was "mild endometrial thickening without a discrete endometrial mass or internal vascularity demonstrated." Records from [facility] ED visits indicate she was prescribed five-day course of PO txa on the 10/20/22 visit and then provera and hydrocodone/acetaminophen on 10/28/22. Tonight, she is given IV toradol and is in NAD on all subsequent reevaluations. Results d/w patient. She asks if there is anything else I can prescribed "to stop the bleeding". I consulted Dr. Girard ([facility] on-call GINNER HELPER), who says I can offer another course of txa, provera, or both, but that of paramount importance is that patient follows up with her general production laborer in outpatient setting for this recurrent/ongoing problem. I discussed this with patient , and she would prefer both txa and provera rx, and these are both provided. I instructed her to contact her general production laborer's office Monday when they open to arrange for next available appointment. Departure - Departure Disposition: Home, Self Care Clinical Impression: Vaginal bleeding Condition: Good Instructions: ED Bleed Irregular Vaginal, ED Pelvic Pain [facility] Prescriptions: Medroxyprogesterone Acetate [Provera] 10 mg PO DAILY 10 Days #20 tablet Tranexamic Acid 1,300 mg PO TID 5 Days #30 tablet Comments: There were no concerning findings on the test performed tonight. Your red blood cell levels were at the low end of normal on the initial check, and they were unchanged when rechecked 3 hours later. There were no concerning nor diagnostic findings on the CAT scan. I discussed her case with Dr. Girard (on-call GINNER HELPER for [facility]). She recommends restarting the txa and/or the provera (and that both can be prescribed and taken at the same time), but that the most important next step for you is to follow up in the outpatient setting with your general production laborer for reevaluation. Of course, can always return to the emergency department at any time if your symptoms worsen or if you develop new/concerning signs/symptoms, such as fever, lightheadedness, shortness of breath. I have electronically submitted prescriptions for both the TXA and the Provera to [facility] pharmacy in [place]. Please contact your GINNER HELPER tomorrow (Monday, November 14) to arrange for next available appointment. Discharge Date/Time: 11/13/22 09:16
[2022-11-13] MEDS ORDERED: iohexoL-300 100 ML VIAL ONE (04:16)
[2022-11-13] MEDS ORDERED: iohexoL-300 100 ML VIAL IVP ONE (05:02)
[2022-11-13] MEDS ORDERED: KETOROLAC 30 MG/ML VIAL IVP STA (05:09)
[2022-11-13 05:55] LABS: HCT - HEMATOCRIT 37.5 % (37.0-47.0); HGB - HEMOGLOBIN 11.9 g/dL (12.0-16.0)
--- NOTE | 2022-11-13 08:53 | CT Report ---
PROCEDURE: ABDOMEN/PELVIS W INDICATIONS: pelvic pain CONTRAST: 100 ML OMNI 300 TECHNIQUE: After the administration of IV contrast, 5 mm thick sections acquired from the diaphragms to the symp hysis. 5 mm thick coronal and sagittal reformats were acquired. For radiation dose reduction, the f ollowing was used: automated exposure control, adjustment of mA and/or kV according to patient size. COMPARISON: 05/02/2019. FINDINGS: Image quality: Excellent. ABDOMEN: Lung bases: Lung bases are clear. Heart size is normal. Solid organs: Liver is normal in size. Hepatic steatosis is seen, no discrete hepatic lesion. Spleen is normal in size and enhancement. Gall bladder is within normal limits. Biliary system is non dilated. Pancreas enhances normally. No adr enal nodules. Kidneys demonstrate normal size and enhancement, without hydronephrosis. Peritoneum and bowel: Bowel loops demonstrate normal wall thickness and caliber. No free fluid or a ir. Significant fecal stasis throughout the colon is seen. Appendix is surgically absent. Nodes and vessels: No retroperitoneal or mesenteric adenopathy by size criteria. Aorta and inferior vena cava are normal in size. Miscellaneous: No ventral hernias. PELVIS: Genitourinary: Bladder wall thickness is normal. Miscellaneous: No inguinal hernias or adenopathy. Bones: No suspicious bony lesions. No vertebral body compression fractures. IMPRESSION: 1. No acute inflammatory process is seen in abdomen or pelvis. No free fluid of free air. 2. [id number] constipation. 3. Hepatic steatosis, no discrete hepatic lesion. No significant discrepancies from preliminary reading. Reviewed by: Ramana Morel MD on 11/13/2022 8:52 AM PST Approved by: Ramana Morel MD on 11/13/2022 8:52 AM PST Station ID: [id number]
[2022-11-13 08:57] VITALS: BP 108/54
== END 2022-11-13 09:16 | disposition home or self-care (01) ==
LOC: ED 00:45
DX: N93.9 Abnormal uterine and vaginal bleeding, unspecified (principal)
CPT/HCPCS: 36415; 74177; 80053; 81025; 83690; 85014; 85018; 85025; 96374; 99284; Q9967; 86900; 86901